=== PATIENT | female | born 2000 | race American Indian/Alaskan Native ===

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

== ENCOUNTER 2018-04-02 07:47 | Outpatient (CLI) | payer MEDICAID | END 2018-04-02 08:15 | disposition home or self-care (01) | LOC: TRG 07:47 | PROVIDERS: ATTEND Obstetrics & Gynecology | DX: O47.03 False labor before 37 completed weeks of gestation, third trimester (principal); Z3A.35 35 weeks gestation of pregnancy; Z90.89 Acquired absence of other organs | CPT/HCPCS: 84156 ==

== ENCOUNTER 2019-01-14 20:15 | Outpatient (CLI) | payer MEDICAID ==
[2019-01-14] MEDS ORDERED: LACTATED RINGERS 500 ML IV ONE (22:01)
[2019-01-14 22:49] VITALS: BP 135/84
[2019-01-14 23:12] LABS: Bacteria,Urine 2+ /HPF (Negative); Bilirubin,Urine NEG (Negative); Blood,Urine NEG (Negative); Color,Urine Yellow (Yellow); Mucus,Urine 2+ /HPF
== END 2019-01-14 23:15 | disposition home or self-care (01) ==
LOC: TRG 20:15
PROVIDERS: ATTEND Obstetrics & Gynecology
DX: O26.892 Other specified pregnancy related conditions, second trimester (principal); Z3A.27 27 weeks gestation of pregnancy
CPT/HCPCS: 81001

== ENCOUNTER 2019-02-23 21:13 | Inpatient (IN) | payer MEDICAID ==
[2019-02-23] MEDS ORDERED: LACTATED RINGERS 1,000 ML ONE (22:57)
[2019-02-23] MEDS ORDERED: BETAMET ACET/BETAMET NA PH 6 MG/ML INJ 5 ML MDV IM ONE (22:57)
[2019-02-23] MEDS ORDERED: LACTATED RINGERS 1,000 ML IV ONE (22:58)
[2019-02-23] MEDS ORDERED: BICITRA ORAL LIQD 30ML PO ONE (23:23)
[2019-02-23] MEDS ORDERED: METOCLOPRAMIDE 10 MG/2 ML INJ IV ONE (23:23)
[2019-02-23] MEDS ORDERED: FAMOTIDINE 20 MG/2 ML INJ IV ONE (23:23)
[2019-02-23] MEDS ORDERED: OXYTOCIN 20 UNIT/1000ML DRIP 20 UNITS/1,000 ML BAG IV SCH (23:45)
[2019-02-23] MEDS ORDERED: LACTATED RINGERS 1,000 ML IV SCH (23:45)
--- NOTE | 2019-02-24 00:08 | XRay Report ---
CHEST 1 VIEW, 02/23/2019 11:37 PM CLINICAL INFORMATION/INDICATION: Shortness of breath COMPARISON: None FINDINGS: SUPPORT DEVICES: None. HEART: Cardiac silhouette is normal in size. LUNGS/PLEURA: There is no focal airspace disease or significant pleural effusion. ADDITIONAL FINDINGS: No additional acute findings. The patient was shielded for this evaluation. IMPRESSION: 1. No evidence of acute cardiopulmonary process. Signer Name: Oksana Graham MD Signed: 02/24/2019 12:03 AM Workstation Name: [id number]
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
[2019-02-24 00:12] LABS: Hematocrit 33.5 % (30.3-42.9); Hemoglobin 11.3 gm/dl (10.1-14.3); Mean Corpuscular HGB Conc 34 % (30-34); Mean Corpuscular Volume 95 fl (79-97); Platelet Count 296 K/mm3 (140-440); Red Blood Count 3.54 M/mm3 (3.65-5.03); Red Cell Distribution Width 15.3 % (13.2-15.2)
[2019-02-24 00:20] LABS: Bacteria,Urine 1+ /HPF (Negative); Bilirubin,Urine NEG (Negative); Blood,Urine SM (Negative); Color,Urine Amber (Yellow); Mucus,Urine FEW /HPF
[2019-02-24] MEDS ORDERED: CARBOPROST TROMETHAMINE 250 MCG/1 ML INJ IM ONE (00:20)
[2019-02-24 00:22] LABS: Protein,Urine >500 mg/dL (Negative)
--- NOTE | 2019-02-24 00:28 | Anesthesia Consultation ---
Anesthesia Consult and Med Hx Date of service: 02/24/19 - Airway Anesthetic Teeth Evaluation: Poor ROM Head & Neck: Adequate Mental/Hyoid Distance: Inadequate Mallampati Class: Class II Intubation Access Assessment: Possibly Difficult - Pulmonary Exam CTA: Yes - Cardiac Exam Cardiac Exam: RRR - Pre-Operative Health Status ASA Pre-Surgery Classification: ASA3, Emergency Proposed Anesthetic Plan: Spinal - Pulmonary Hx Smoking: No Hx Asthma: No COPD: No Hx Pneumonia: No Hx Sleep Apnea: No (ANJALI PRE SCREEN NEGATIVE) - Cardiovascular System Hx Hypertension: No - Central Nervous System Hx Seizures: No Hx Psychiatric Problems: No - Endocrine Hx Renal Disease: No Hx End Stage Renal Disease: No Hx Hypothyroidism: No Hx Hyperthyroidism: No - Hematic Hx Anemia: No Hx Sickle Cell Disease: No - Other Systems Hx Alcohol Use: Yes Hx Cancer: No Hx Obesity: Yes (BMI > 30)
--- NOTE | 2019-02-24 00:29 | Anesthesia Day of Surgery ---
Anesthesia Day of Surgery - Day of Surgery Patient Examined: Yes Patient H&P Reviewed: Yes Patient is NPO: Yes
--- NOTE | 2019-02-24 00:31 | Ultrasound Report ---
Examination: Ultrasound Obstetrical Limited, 02/23/2019 INDICATION: Evaluate presentation and PIYUSH COMPARISON: None FINDINGS: The presentation is cephalic. PIYUSH equals 6 cm, which is decreased. The placenta is anterior and grade 2. heart rate equals 166 bpm IMPRESSION: 1. Decreased PIYUSH equaling 6 cm. Signer Name: Oksana Graham MD Signed: 02/24/2019 12:27 AM Workstation Name: [id number]
[2019-02-24 00:40] LABS: Albumin 3.3 g/dL (3.9-5); BUN/Creatinine Ratio 10; Blood Urea Nitrogen 8 mg/dL (7-17); Calcium 8.4 mg/dL (8.4-10.2); Hemolysis Index 999
[2019-02-24 00:45] LABS: Alanine Aminotransferase TNR units/L (7-56)
[2019-02-24] MEDS ORDERED: ALBUMIN HUMAN 5% (25 GM/500 ML) INJ IV STA (00:54)
[2019-02-24] MEDS ORDERED: ACETAMINOPHEN 500 MG TAB PO ONE (01:07)
[2019-02-24] MEDS ORDERED: ACETAMINOPHEN 650 MG RECT SUPP PR PRN (01:31)
[2019-02-24 01:48] LABS: Alanine Aminotransferase 7 units/L (7-56); Albumin 3.1 g/dL (3.9-5); BUN/Creatinine Ratio 12; Blood Urea Nitrogen 7 mg/dL (7-17); Calcium 8.2 mg/dL (8.4-10.2); Hemolysis Index 3
[2019-02-24] MEDS ORDERED: DEXMEDETOMIDINE 200 MCG/2 ML VIAL IV ONE (01:53)
[2019-02-24] MEDS ORDERED: BUPIVACAINE/PF (0.5%) 5 MG/1 ML 30 ML VIAL INFILTRATI ONE (01:53)
[2019-02-24] MEDS ORDERED: OXYTOCIN 10 UNIT/1 ML INJ ONE (01:54)
[2019-02-24] MEDS: GENTAMICIN/NS 80 MG/100 ML 100 ML IV SCH ×2 (02:00→12:50)
[2019-02-24 02:11] LABS: Band Neutrophils # (Manual) 2.9 K/mm3; Basophils % (Manual) 0 % (0.0-1.8); Eosinophils % (Manual) 0 % (0.0-4.3); Total Cells Counted 100
[2019-02-24] MEDS ORDERED: WATER FOR IRRIG STERILE 1,500 ML BOTTLE IR ONE (02:17)
[2019-02-24] MEDS ORDERED: SODIUM CHLORIDE 0.9% IRR 1,500 ML BOTTLE IR ONE (02:17)
[2019-02-24] MEDS ORDERED: CLINDAMYCIN 150 MG/ML VIAL 6 ML ONE (02:22)
[2019-02-24 02:25] LABS: Burr Cells Rare; Stomatocytes Rare
[2019-02-24 02:26] LABS: Platelet Estimate Consistent w Auto
[2019-02-24] MEDS ORDERED: KETOROLAC 30 MG/1 ML INJ ONE (02:49)
--- NOTE | 2019-02-24 03:17 | Post Anesthesia Evaluation ---
- Post Anesthesia Evaluation Patient Participated: Yes Airway Patent: Yes Stable Respiratory Function: Yes Nausea/Vomiting: No Temp > 96.8F: Yes Pain Manageable: Yes Adequeate Hydration: Yes Anesthesia Complications: No Block Receding Appropriately: Yes
--- NOTE | 2019-02-24 03:22 | Operative Report ---
Operative Report Operative Report: Date of procedure: February 24, 2019 Preoperative diagnosis: 1) IUP at 33w2d 2)Chorioamnionitis 3) PPROM 4) P rolonged ROM Postoperative diagnosis: Same Procedure:Primary low transverse section Surgeon: Carla Johnson M.D. Anesthesia: Regional Findings: 1) Viable female , Apgars 3 and 8, weight 1847g, (4 lb 1 oz) in cephalic presentation 2) Normal-appearing uterus ovaries and tubes Estimated blood loss: 500 mL IV fluids:1500 mL Urine output: 50 mL, clear at the end of the procedure Drains: Goodman to gravity Specimens: Placenta to pathology Complications:None. Counts correct x 3 Disposition: Stable to PACU Indication for procedure: Pt is a 18 year old at 33w2d who presents with PPROM, Prolonged ROM for unknown duration, fever, maternal tachycardia, tachycardia, uterine tenderness and foul smelling amniotic fluid consistent with chorioamnionitis. The decision was to proceed with delivery. Operation in detail: After the risks, benefits, alternatives and complications were explained to the patient she gave informed consent for the procedure. She was subsequently taken to the operating room where regional anesthesia was noted to be adequate. She was subsequently placed in the dorsal supine position with leftward tilt and prepped and draped in a normal sterile fashion. heart tones were noted prior to incision. A timeout was performed. A Pfannenstiel skin incision was made with the knife and carried down to the layer of the fascia with the Bovie. The fascia was incised in the midline and the fascial incision was extended bilaterally with the Bovie. The fascial incision was then stretched. The rectus muscles were then in the midline and partially transected for adequate visualization. The peritoneum was then entered sharply. The peritoneal incision was extended with good visualization of the bladder. The peritoneal incision was then stretched. An Bright retractor was placed. The bladder blade was placed. The vesicouterine peritoneum was grasped with smooth pickups and incised with Metzenbaum scissors. Metzenbaum scissors were used to extend the incision bilaterally. The bladder flap was then created digitally and the bladder blade was replaced. A transverse incision was made in the lower uterine segment with a knife and extended bilaterally with the bandage scissors. The head was delivered without difficulty followed by shoulders and body. was bulb suctioned at delivery. The cord was clamped and cut and the was handed to NICU staff in attendance. Cord blood was collected. The placenta was then delivered manually. The uterus was then cleared of all clots and debris. The hysterotomy was then reapproximated with 0 Vicryl in a running locked fashion. A second layer of the same suture was used in imbricating fashion. The hysterotomy was inspected and hemostasis was noted. The gutters were irrigated and cleared of all clots and debris. The hysterotomy was again inspected and noted to be hemostatic. Surgicel was placed over the hysterotomy. The Bright retractor was removed. The peritoneum was reapproximated with 2-0 Vicryl in a running fashion incorporating the rectus muscles. The fascia was reapproximated with 0 Vicryl in a running fashion. The subcutaneous tissue was reapproximated with 3-0 Vicryl in a running fashion. The skin was reapproximated with 4-0 Vicryl in a subcuticular fashion. The incision was then covered with steri strips and a pressure dressing. The procedure was then ended. The patient tolerated the procedure well and was taken to the PACU in stable condition. All instrument, lap, and needle counts were correct 3.
--- NOTE | 2019-02-24 03:22 | Procedure Note ---
OB Delivery Note - Delivery Date of Delivery: 02/24/19 Surgeon: ABDIAS EUCEDA Estimated blood loss: 500cc - Section Preop diagnosis: other (Chorioamnionitis, tachycardia, Maternal Tachycardia ) Postop diagnosis: same section procedure: section, primary low transverse Disposition: PACU Narrative: Please see operative report. - Infant A at 1 minute: 3 at 5 minutes: 8 Gender: Female (1847g (4lb 1oz) @ 0226 am)
[2019-02-24] MEDS: AMPICILLIN/NS 2 GM/100 ML 2 GM/100 ML BAG IV SCH ×5 (06:03→20:13)
[2019-02-24] MEDS ORDERED: NALOXONE 0.4 MG/1 ML INJ IV PRN (08:28)
[2019-02-24] MEDS ORDERED: WITCH HAZEL/ GLYCERIN PAD TP PRN (08:28)
[2019-02-24] MEDS ORDERED: ONDANSETRON 4 MG/2 ML INJ IV PRN (08:28)
[2019-02-24] MEDS ORDERED: SIMETHICONE 80 MG CHEW TAB PO PRN (08:28)
[2019-02-24] MEDS ORDERED: IBUPROFEN 800 MG TAB PO PRN (08:28)
[2019-02-24] MEDS ORDERED: LANOLIN/ZINC/DIMETHICONE (LANSINOH) 7 GM TP PRN (08:28)
[2019-02-24] MEDS ORDERED: OXYTOCIN 20 UNIT/1000ML DRIP 20 UNITS/1,000 ML BAG IV SCH (09:00)
[2019-02-24] MEDS ORDERED: D5W/LACTATED RINGERS 1,000 ML IV SCH (09:00)
[2019-02-24] MEDS: KETOROLAC 30 MG/1 ML INJ IV SCH ×2 (10:49→18:07)
[2019-02-24] MEDS: MORPHINE 2 MG/1 ML INJ IV PRN ×2 (12:56→20:27)
[2019-02-24] MEDS ORDERED: LACTATED RINGERS 1,000 ML IV ONE (15:55)
[2019-02-24 17:39] LABS: Basophils % (Auto) 0.3 % (0.0-1.8); Hematocrit 24.3 % (30.3-42.9); Hemoglobin 8.4 gm/dl (10.1-14.3); Lymphocytes % (Auto) 9.3 % (13.4-35.0); Mean Corpuscular HGB Conc 35 % (30-34); Mean Corpuscular Volume 94 fl (79-97); Monocytes # (Auto) 0.4 K/mm3 (0.0-0.8); Monocytes % (Auto) 3.4 % (0.0-7.3); Platelet Count 225 K/mm3 (140-440); Red Blood Count 2.59 M/mm3 (3.65-5.03); Red Cell Distribution Width 13.3 % (13.2-15.2)
[2019-02-24 17:52] LABS: BUN/Creatinine Ratio 15; Blood Urea Nitrogen 9 mg/dL (7-17); Calcium 8.7 mg/dL (8.4-10.2); Hemolysis Index 0
[2019-02-24 21:34] LABS: Hematocrit 23.6 % (30.3-42.9); Hemoglobin 8.2 gm/dl (10.1-14.3)
[2019-02-25] MEDS: GENTAMICIN/NS 80 MG/100 ML 100 ML IV SCH ×2 (02:00→09:05)
--- NOTE | 2019-02-25 02:56 | Consultation ---
History of Present Illness - Reason for Consult Consult date: 02/25/19 - History of Present Illness 18-year-old woman with no medical problem, status post on [id number] is being consulted for hypothermia. Patient has been hypothermic and hypotensive since yesterday, she is on ampicillin, gentamicin, clindamycin. Next report decreased urine output since yesterday. Patient complain of back pain, dull, constant since yesterday, intensity follow 10, no radiation, cannot identify exacerbating factors Review of systems Constitutional: no weight loss, chills, fever Ears, eyes, nose, mouth and throat: no nasal congestion, no nasal discharge, no sinus pressure, no vision change, no red eye. Neck: No neck pain or rigidity. Cardiovascular: no chest pain, palpitations Respiratory: no cough, shortness of breath Gastrointestinal: no abdominal pain hematochezia Genitourinary : no frequency , no hematuria Musculoskeletal: no joint swelling or muscle ache Integumentary: no rash, no pruritis Neurological: no parathesias, no numbness, no focal weakness Endocrine: no cold or heat intolerance, no polyuria or polydipsia Hematologic/Lymphatic: no easy bruising, no easy bleeding, no gland swelling Allergic/Immunologic: no urticaria, no angioedema. PAST MEDICAL HISTORY none PAST SURGICAL HISTORY: c/section SOCIAL HISTORY: No drugs, tobacco, alcohol FAMILY HISTORY: Hypertension Past History Social history: other (per HPII ) Medications and Allergies Allergies Allergy/AdvReac Type Severity Reaction Status Date / Time No Known Allergies Allergy Verified 02/02/17 11:01 Home Medications Medication Instructions Recorded Confirmed Last Taken Type Vit-Fe Fumar-FA [ 1 tab PO QDAY 04/27/18 02/24/19 04/25/18 History Vitamin] Ibuprofen [Motrin] 800 mg PO Q8HR PRN #40 tablet 04/29/18 Unknown Rx Active Meds: Active Medications Diphtheria/Tetanus/Acell Pertussis (Boostrix) 0.5 ml IM .ONCE ONE Stop: 02/25/19 08:18 Ferrous Sulfate (Feosol) 325 mg PO QDAY [facility] Gentamicin Sulfate/Sodium Chloride (Gentamicin/Ns 80 Mg/100 Ml) 100 mls @ 200 mls/hr IV Q8H [facility]; Protocol Last Admin: 02/25/19 02:00 Dose: 200 mls/hr Documented by: Clindamycin HCl (Cleocin 900 Mg/50 Ml) 900 mg in 50 mls @ 100 mls/hr IV Q8HR [facility]; Protocol Last Admin: 02/24/19 20:33 Dose: 100 mls/hr Documented by: Ampicillin Sodium (Ampicillin/Ns 2 Gm/100 Ml) 2 gm in 100 mls @ 100 mls/hr IV Q4HR [facility]; Protocol Last Admin: 02/24/19 20:13 Dose: 100 mls/hr Documented by: Oxytocin/Sodium Chloride (Pitocin/Ns 20 Unit/1000ml Drip) 20 units in 1,000 mls @ 0 mls/hr IV TITR [facility] Oxytocin/Sodium Chloride (Pitocin/Ns 20 Unit/1000ml Drip) 20 units in 1,000 mls @ 250 mls/hr IV DIRECT [facility] Dextrose/Lactated Ringer's (D5lr) 1,000 mls @ 125 mls/hr IV DIRECT [facility] Piperacillin Sod/Tazobactam Sod (Zosyn/Ns 4.5gm/100ml) 4.5 gm in 100 mls @ 200 mls/hr IV Q8HR [facility]; Protocol Ibuprofen (Ibuprofen) 800 mg PO Q6H PRN PRN Reason: Pain, Mild (1-3) Ketorolac Tromethamine (Toradol) 30 mg IV Q6H [facility] Stop: 02/25/19 03:01 Last Admin: 02/24/19 18:07 Dose: 30 mg Documented by: Measles/Mumps/Rubella Vaccine Live (M-M-R Ii Vaccine) 0.5 ml SUB-Q .ONCE ONE Stop: 02/25/19 08:18 Morphine Sulfate (Morphine) 2 mg IV Q4H PRN PRN Reason: Pain, Moderate (4-6) Last Admin: 02/24/19 20:27 Dose: 2 mg Documented by: Multi-Ingredient Ointment (Lansinoh) 1 applic TP PRN PRN PRN Reason: dryness/cracking Multivitamins/Iron/Calcium ( Vitamin) 1 each PO QDAY [facility] Naloxone HCl (Naloxone) 0.1 mg IV Q2MIN PRN PRN Reason: Res Rate </= 8 or 02 SAT < 92% Ondansetron HCl (Zofran) 4 mg IV Q8H PRN PRN Reason: Nausea And Vomiting Oxycodone/Acetaminophen (Percocet 5/325) 2 tab PO Q4H PRN PRN Reason: Pain, Moderate (4-6) Simethicone (Mylicon) 80 mg PO Q6H PRN PRN Reason: Gas pain Witch Veena/Glycerin (Tucks Pad) 1 each TP PRN PRN PRN Reason: Hemorrhoids/cleansing/soothing Exam - Physical Exam Narrative exam: Gen. appearance: Patient lying in bed, no apparent distress HEENT: Normocephalic, atraumatic, pupils equally round and reactive to light, extraocular movement intact, and no sclericterus,. No JVD or thyromegaly or nodule,neck supple, no carotid bruit ,mucous membranes moist, no exudate or erythema Heart: S1, S2, regular rate and rhythm Lungs: Clear bilaterally, breathing comfortable Abdomen: Positive bowel sounds, tender over c/section site, nondistended, no organomegaly Extremity:no edema cyanosis, clubbing, no CVA tenderness Skin: no rash, dry, warm Neuro: Oriented 3, cranial nerves II-12 intact, speech is fluent, motor and sensory intact - Constitutional Vitals: Temp Pulse Resp BP Pulse Ox 95.9 F L 87 17 104/70 98 02/25/19 02:33 02/24/19 21:40 02/24/19 20:27 02/24/19 21:40 02/24/19 20:01 Results - Labs CBC & Chem 7: 02/25/19 05:04 02/25/19 05:04 Labs: Abnormal lab results 02/24/19 02/24/19 02/24/19 Range/Units 17:07 17:07 20:19 RBC 2.59 L (3.65-5.03) M/mm3 Hgb 8.4 L 8.2 L (10.1-14.3) gm/dl Hct 24.3 L D 23.6 L (30.3-42.9) % MCH 33 H (28-32) pg MCHC 35 H (30-34) % Lymph % (Auto) 9.3 L (13.4-35.0) % Lymph # 1.0 L (1.2-5.4) K/mm3 Seg Neutrophils % 87.0 H (40.0-70.0) % Seg Neutrophils # 9.5 H (1.8-7.7) K/mm3 Chloride 108.5 H (98-107) mmol/L Carbon Dioxide 16 L (22-30) mmol/L Creatinine 0.6 L (0.7-1.2) mg/dL Glucose 114 H (65-100) mg/dL Assessment and Plan Assessment Septic Shock Back pain Urinary tract present on 02/23 Plan Give IV fluid bolus then maintenance CT abdomen, rule out retroperitoneal bleed, hemoglobin trending down versus other Start Zosyn, obtain cultures, labs now, continue bear kathy Recommend ID consult, patient on multiple antibiotics Discussed with Dr Johnson
[2019-02-25] MEDS ORDERED: SODIUM CHLORIDE 0.9% 1000 ML 1,000 ML IV ONE (02:57)
[2019-02-25] MEDS: KETOROLAC 30 MG/1 ML INJ IV SCH ×3 (03:00→06:10)
[2019-02-25] MEDS: PIPERACIL/TAZOBACTA 4.5/NS 100 4.5 GM/100 ML VIAL IV SCH ×3 (03:00→21:27)
[2019-02-25] MEDS ORDERED: SODIUM CHLORIDE 0.9% 1000 ML 3,000 ML IV ONE (03:05)
--- NOTE | 2019-02-25 03:50 | Event Note ---
Date: 02/25/19 Late entry. Pt has been intermittently hypothermic since surgery. Urine output initially increased but has now decreased and become more concentrated. Blood pressure 70-100/30-70s. Pulse consistently below 100. Pt is awake, alert and oriented. Abdomen appropriately tender. Hypoactive bowel sounds. Fundus firm. Scant lochia. Extremities lukewarm to touch. Goodman in place, urine yellow but concentrated. Nursing calender supervisor contacted for transfer to ICU for close monitoring. Hospitalist consulted previously.
[2019-02-25] MEDS: AMPICILLIN/NS 2 GM/100 ML 2 GM/100 ML BAG IV SCH ×4 (04:01→09:36)
--- NOTE | 2019-02-25 04:10 | Cat Scan Report ---
CT ABDOMEN AND PELVIS WITHOUT CONTRAST INDICATION: Abdominal pain and back pain after recent . TECHNICAL: Multiple axial CT images of the abdomen and pelvis were acquired without intravenous contr ast. Sagittal and coronal reformats were obtained. All CTs at this facility utilize dose reduction techniques including automated exposure control, iterative reconstruction and weight based dosing whe n appropriate to reduce patient radiation dose to as low as reasonable achievable. COMPARISON: CT of the abdomen and pelvis, 01/04/2017 FINDINGS: Limited imaging of the bilateral lung bases demonstrates minimal dependent atelectasis. Abdomen: There is a small amount of free air within the anterior abdomen. Within the limitations of jacklyn herbert's noncontrast study, the liver, spleen, gallbladder, pancreas, bilateral adrenal glands and bila teral kidneys show no definitive evidence of acute abnormality. There are a few loops of mildly promi nent fluid-filled small bowel throughout the abdomen. Pelvis: The uterus is enlarged and diffusely heterogeneous. Scattered air is seen within the endometr ial canal and within the overlying anterior pelvic soft tissues. There is a moderate amount of mixed density free pelvic fluid. The urinary bladder is decompressed by a Goodman catheter. Bones and Soft Tissues: Evaluation of bony structures demonstrate no evidence of acute bony abnormal ity. IMPRESSION: 1. Enlarged heterogeneous uterus likely related to immediate state after section with scattered abdominopelvic free air. 2. Moderate amount of mixed density free pelvic fluid. 3. Few mildly prominent small bowel loops representing a nonspecific finding. Signer Name: Oksana Graham MD Signed: 02/25/2019 4:06 AM Workstation Name: [id number]
[2019-02-25] MEDS ORDERED: SODIUM CHLORIDE 0.9% 1000 ML 1,000 ML ONE (04:16)
[2019-02-25 05:15] LABS: Basophils % (Auto) 0.1 % (0.0-1.8); Eosinophils % (Auto) 0.1 % (0.0-4.3); Hemoglobin 7.2 gm/dl (10.1-14.3); Lymphocytes # (Auto) 0.7 K/mm3 (1.2-5.4); Lymphocytes % (Auto) 5.7 % (13.4-35.0); Mean Corpuscular HGB Conc 34 % (30-34); Mean Corpuscular Volume 94 fl (79-97); Monocytes # (Auto) 0.8 K/mm3 (0.0-0.8); Monocytes % (Auto) 5.9 % (0.0-7.3); Platelet Count 222 K/mm3 (140-440); Red Blood Count 2.23 M/mm3 (3.65-5.03); Red Cell Distribution Width 13.7 % (13.2-15.2)
[2019-02-25 05:27] LABS: INR 0.92 (0.87-1.13)
[2019-02-25 05:36] LABS: BUN/Creatinine Ratio 17; Blood Urea Nitrogen 10 mg/dL (7-17); Calcium 8.2 mg/dL (8.4-10.2); Hemolysis Index 2
[2019-02-25] MEDS: SODIUM CHLORIDE 0.9% 1000 ML 1,000 ML IV SCH ×2 (06:09→18:31)
[2019-02-25] MEDS ORDERED: MEASLES, MUMPS & RUBELLA 12,500 UNIT/0.5 ML VACCINE SUB-Q ONE (08:17)
[2019-02-25] MEDS ORDERED: TETANUS,DIPH,PERTUSS(ACELL) VACCINE 0.5 ML SYRINGE IM ONE (08:17)
[2019-02-25] MEDS: FERROUS SULFATE 325 MG TAB PO SCH (09:36)
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
--- NOTE | 2019-02-25 12:29 | XRay Report ---
CHEST 2 VIEWS INDICATION / CLINICAL INFORMATION: eval for pneumonia. COMPARISON: One view of the chest from 02/23/2019. FINDINGS: SUPPORT DEVICES: None. HEART / MEDIASTINUM: There is mild cardiomegaly. LUNGS / PLEURA: No significant pulmonary or pleural abnormality. No pneumothorax. ADDITIONAL FINDINGS: No significant additional findings. IMPRESSION: 1. Mild cardiomegaly. 2. No radiographic evidence of pneumonia. Signer Name: Monster Duron MD Signed: 02/25/2019 12:24 PM Workstation Name: [id number]
[2019-02-25] MEDS: oxyCODONE /ACETAMINOPHEN 5-325MG TAB PO PRN ×2 (14:09→23:30)
[2019-02-25] MEDS: AZITHROMYCIN 500 MG in SODIUM CHLORIDE 0.9% 250ML 250 ML IV SCH (14:17)
--- NOTE | 2019-02-25 14:29 | Event Note ---
Date: 02/25/19 patient seen and examined noted ID recommendation, follow cx, cont abx if BP anf body temp improves possible transfer to floor tomorrow Discussed with family at bedside
[2019-02-25] MEDS: PRENATAL VIT27-FE FUMARATE-FOLIC ACID VIT TAB PO SCH (20:27)
--- NOTE | 2019-02-25 22:53 | Event Note ---
Date: 02/25/19 Late entry. ~ 1730 pm, pt resting in bed with mother at bedside. On-call RN at bedside as well. Discussed reason for transfer to ICU secondary to persistent hypothermia and sepsis. Pt doing well throughout the day with increased urine output to 50 mL/hr and bowel movement earlier today. Pt c/o incisional pain relieved by pain medication. Maintain glover at this time. All input from automotive consultant services much appreciated. Continue antibiotics per Infectious Disease recommendations.
[2019-02-26] MEDS: SODIUM CHLORIDE 0.9% 1000 ML 1,000 ML IV SCH ×2 (01:18→11:45)
[2019-02-26] MEDS: PIPERACIL/TAZOBACTA 4.5/NS 100 4.5 GM/100 ML VIAL IV SCH ×3 (04:04→20:50)
[2019-02-26] MEDS ORDERED: ACETAMINOPHEN 325 MG TAB PO PRN (05:05)
--- NOTE | 2019-02-26 05:44 | Event Note ---
I went to evaluate the patient for tachycardia, febrile, resting comfortable in bed Nurse Instructed to give Tylenol, will reassess heart rate after tylenol Lab draw is pending, follow hemoglobin and BMP, d/w Dr Johnson
--- NOTE | 2019-02-26 06:23 | Event Note ---
Date: 02/26/19 On-call MD called to reevaluate the patient secondary to fever, and worsening tachycardia over the course of the shift. At bedside, pt is resting in bed. She reports that she has not used her incentive spirometer since transfer to ICU. Again encouraged frequent use. Pulse 130-150s, 99% oxygen saturation on 3L NC, tachycardic, shallow breaths. Upper abdomen moderately distended with hypoactive bowel sounds. Uterine fundus firm two fingerbreaths below the umbilicus. Scant lochia noted on pad. Goodman in place with concentrated yellow urine in the bag. Certified Genetic Counselor input much appreciated. Tylenol PRN; CBC, CMP ordered previously. Chest X-ray ordered. Respiratory consult. Closely monitor clinical status.
--- NOTE | 2019-02-26 06:33 | XRay Report ---
CHEST 1 VIEW, 02/26/2019 6:11 AM CLINICAL INFORMATION/INDICATION: Shortness of breath COMPARISON: Chest radiograph, 02/25/2019 FINDINGS: SUPPORT DEVICES: None. HEART: There is stable mild enlargement of the cardiac silhouette. LUNGS/PLEURA: No focal airspace consolidation or significant pleural effusion is seen. ADDITIONAL FINDINGS: No additional acute findings. IMPRESSION: 1. Stable mild enlargement of the cardiac silhouette. Signer Name: Oksana Graham MD Signed: 02/26/2019 6:29 AM Workstation Name: [id number]
[2019-02-26 08:04] LABS: Hemoglobin 6.9 gm/dl (10.1-14.3); Mean Corpuscular HGB Conc 35 % (30-34); Mean Corpuscular Volume 94 fl (79-97); Platelet Count 252 K/mm3 (140-440); Red Blood Count 2.11 M/mm3 (3.65-5.03); Red Cell Distribution Width 13.9 % (13.2-15.2)
[2019-02-26 08:11] LABS: Hematocrit 19.9 % (30.3-42.9)
[2019-02-26] MEDS: FERROUS SULFATE 325 MG TAB PO SCH ×2 (08:14→09:31)
[2019-02-26] MEDS: PRENATAL VIT27-FE FUMARATE-FOLIC ACID VIT TAB PO SCH ×2 (08:15→09:31)
[2019-02-26] MEDS: KETOROLAC 30 MG/1 ML INJ IV SCH (08:15)
[2019-02-26] MEDS: GENTAMICIN/NS 80 MG/100 ML 100 ML IV SCH ×2 (08:16→08:17)
[2019-02-26 08:26] LABS: Alanine Aminotransferase 6 units/L (7-56); Albumin 2.4 g/dL (3.9-5); BUN/Creatinine Ratio 13; Blood Urea Nitrogen 10 mg/dL (7-17); Calcium 8.1 mg/dL (8.4-10.2); Hemolysis Index 2
[2019-02-26] MEDS ORDERED: SODIUM CHLORIDE 0.9% 500 ML 500 ML IV ONE ×2 (08:27→08:52)
--- NOTE | 2019-02-26 08:33 | Progress Note ---
Assessment and Plan POD2 s/p emergency csec/chorio/sepsis switched abx to zosyn and azithro tolerating diet temp currently 98.4 on tylenol encourage IS and out of besd with assistance hemoglobin 6.9 2 u blood transfusion will discuss case with IM Dr. Boyd appreciate ID consult Subjective - Subjective Date of service: 02/26/19 Principal diagnosis: chroirom csec, sepsis Patient reports: appetite normal, voiding normally, ambulating normally : doing well, in NICU Objective - Vital Signs Latest vital signs: Vital Signs Temp Pulse Pulse Resp BP Pulse Ox 02/26/19 07:27 99 02/26/19 04:00 131 H 42 H 99/54 97 02/26/19 03:25 101.9 F H 02/26/19 03:00 118 H 35 H 107/45 96 02/26/19 02:00 118 H 26 H 100/42 93 02/26/19 01:00 125 H 27 H 91/45 94 02/26/19 00:00 102.4 F H 122 H 30 H 98/40 98 02/25/19 23:00 126 H 40 H 97/52 100 02/25/19 22:00 123 H 36 H 103/59 99 02/25/19 21:25 119 H 29 H 95/53 98 02/25/19 21:00 114 H 24 95/53 98 02/25/19 20:00 98.3 F 111 H 22 95/44 99 02/25/19 19:00 106 H 24 101/61 97 02/25/19 18:00 107 H 109 H 29 H 105/60 98 02/25/19 17:00 90 20 99/53 02/25/19 16:00 97.9 F 86 21 81/25 95 02/25/19 15:00 120 H 23 93/48 97 02/25/19 14:00 108 H 88 37 H 93/63 97 02/25/19 13:00 105 H 22 97/62 100 02/25/19 12:12 117/66 02/25/19 12:00 97.4 F L 88 02/25/19 11:00 97 H 24 95/69 99 02/25/19 10:00 94 H 79 26 H 99/58 99 02/25/19 09:00 73 16 102/62 97 Intake and Output 02/25/19 02/26/19 02/26/19 23:59 07:59 15:59 Intake Total 500 1250 Output Total 300 340 Balance 200 910 Intake: IV 100 1000 NaCl 0.9% 1000 ml 1,000 1000 ml @ 150 mls/hr IV DIRECT MANGO Rx#:[id number] ZOSYN/NS 4.5GM/100ML 4.5 100 gm In 100 ml @ 200 mls/hr IV Q8H MAN[facility] Rx#:[id number] Oral 400 250 Output: Urine 300 340 Indwelling Catheter 300 340 Other: Total, Intake Amount 200 150 Total, Output Amount 300 40 Voiding Method Indwelling Catheter # Bowel Movements 0 - Exam Breasts: Present: normal Cardiovascular: Present: Regular rate, Normal S1 Lungs: Present: Clear to auscultation, Normal air movement Abdomen: Present: normal appearance, soft, normal bowel sounds. Absent: distention, tenderness, guarding Uterus: Present: normal, firm, fundal height below umbilicus Extremities: Present: normal Deep Tendon Reflex Grade: Normal +2 Incision: Present: normal, dry, intact - Labs Labs: Abnormal lab results 02/26/19 02/26/19 Range/Units 07:40 07:40 RBC 2.11 L (3.65-5.03) M/mm3 Hgb 6.9 L (10.1-14.3) gm/dl Hct 19.9 L* (30.3-42.9) % MCH 33 H (28-32) pg MCHC 35 H (30-34) % Chloride 114.2 H (98-107) mmol/L Carbon Dioxide 13 L (22-30) mmol/L Calcium 8.1 L (8.4-10.2) mg/dL ALT 6 L (7-56) units/L Total Protein 5.2 L (6.3-8.2) g/dL Albumin 2.4 L (3.9-5) g/dL
[2019-02-26] MEDS ORDERED: SODIUM CHLORIDE 0.9% 500 ML 500 ML IV NR (09:06)
[2019-02-26 09:24] LABS: Band Neutrophils # (Manual) 0.1 K/mm3; Basophils % (Manual) 0 % (0.0-1.8); Eosinophils % (Manual) 0 % (0.0-4.3); Monocytes % (Manual) 0 % (0.0-7.3); Total Cells Counted 100
[2019-02-26 09:26] LABS: Anisocytosis Few; Ovalocytes Few
[2019-02-26 09:27] LABS: Large Platelets Rare; Platelet Estimate Consistent w Auto
[2019-02-26] MEDS: ACETAMINOPHEN 325 MG/10.15 ML ORAL LIQD UNIT DOSE PO SCH ×2 (09:30→20:56)
[2019-02-26] MEDS: AZITHROMYCIN 500 MG in SODIUM CHLORIDE 0.9% 250ML 250 ML IV SCH (09:31)
--- NOTE | 2019-02-26 12:01 | Progress Note ---
Assessment and Plan Cultures: Blood culture 02/23/2019 no growth so far Blood culture 02/25/2019 - pending Blood culture 02/26/2019 - pending Urine culture 02/23/2019 10-100K mixed bacteria. Assessment: 18 y/o female with 33 weeks admitted on 02/23/2019 due to abdominal pain and vaginal clear discharge, as well as cough now with: 1) Sepsis: present on admission with tachycardia, fever, leukococytosis; likely due to UTI +/- choriamnionitis +/- ?r/o pneumonia/flu 2) S/p C section: for and maternal tachycardia and presumed chorioamnionitis on 02/24/2019 3) UTI: UA with 23 wbc trace LE. Urine culture 02/23/2019 10-100K mixed bacteria. 4) Chorioamnionitis: premature ROM. CT abd shows enlarged heterogenous uterus with scattered free air. 5) Recent gonorrhea: treated Recs: continue pip/tazo IV Flu negative check GC/chlamydia - pending s/p blood transfusion Continue azithromycin follow up blood cultures Will follow. Thanks for consultation [facility] M: [phone] O: [phone] F: [phone] Subjective Date of service: 02/26/19 Principal diagnosis: chroirom csec, sepsis Interval history: Febrile overnight to 102.4, with a normal white count. Objective - Exam Narrative Exam: Constitutional: Alert, cooperative. No acute distress Head, Ears, Nose: Normocephalic, atraumatic. External ears, nose normal Eyes: Conjunctivae/corneas clear. No icterus. No ptosis. Neck: Supple, no meningeal signs Oral: dentition fair, no thrush Cardiovascular: S1, S2 normal. Respiratory: Good air entry, clear to auscultation bilaterally GI: soft +csection wound with dressings Musculoskeletal: No pedal edema, no cyanosis. b/l leg wounds Skin: no rash Hem/Lymphatic: No palpable cervical or supraclavicular nodes. No lymphangitis Psych: Mood ok. Affect flat Neurological: Awake, alert, oriented. - Constitutional Vitals: Vital Signs Temp Pulse Resp BP Pulse Ox 98.6 F 131 H 42 H 99/54 99 02/26/19 08:08 02/26/19 04:00 02/26/19 04:00 02/26/19 04:00 02/26/19 07:27 Temperature -Last 24 Hours Temperature 98.6 F Temperature 101.9 F Temperature 102.4 F Temperature 98.3 F Temperature 97.9 F Temperature 97.4 F - Labs CBC & Chem 7: 02/26/19 07:40 02/26/19 07:40 Labs: Abnormal lab results 02/23/19 02/24/19 02/26/19 Range/Units 23:05 01:00 07:40 WBC 13.8 H (4.5-11.0) K/mm3 RBC 3.54 L 2.11 L (3.65-5.03) M/mm3 Hgb 6.9 L (10.1-14.3) gm/dl Hct 19.9 L* (30.3-42.9) % MCH 33 H (28-32) pg MCHC 35 H (30-34) % RDW 15.3 H (13.2-15.2) % Seg Neuts % (Manual) 83.0 H (40.0-70.0) % Lymphocytes % (Manual) 11.0 L (13.4-35.0) % Monocytes % (Manual) 10.0 H (0.0-7.3) % Nucleated RBC % 1.0 H (0.0-0.9) % Seg Neutrophils # Man 7.9 H (1.8-7.7) K/mm3 Lymphocytes # (Manual) 1.1 L (1.2-5.4) K/mm3 Monocytes # (Manual) 1.4 H (0.0-0.8) K/mm3 Chloride (98-107) mmol/L Carbon Dioxide (22-30) mmol/L Calcium (8.4-10.2) mg/dL ALT (7-56) units/L Total Protein (6.3-8.2) g/dL Albumin (3.9-5) g/dL Crossmatch See Detail 02/26/19 Range/Units 07:40 WBC (4.5-11.0) K/mm3 RBC (3.65-5.03) M/mm3 Hgb (10.1-14.3) gm/dl Hct (30.3-42.9) % MCH (28-32) pg MCHC (30-34) % RDW (13.2-15.2) % Seg Neuts % (Manual) (40.0-70.0) % Lymphocytes % (Manual) (13.4-35.0) % Monocytes % (Manual) (0.0-7.3) % Nucleated RBC % (0.0-0.9) % Seg Neutrophils # Man (1.8-7.7) K/mm3 Lymphocytes # (Manual) (1.2-5.4) K/mm3 Monocytes # (Manual) (0.0-0.8) K/mm3 Chloride 114.2 H (98-107) mmol/L Carbon Dioxide 13 L (22-30) mmol/L Calcium 8.1 L (8.4-10.2) mg/dL ALT 6 L (7-56) units/L Total Protein 5.2 L (6.3-8.2) g/dL Albumin 2.4 L (3.9-5) g/dL Crossmatch
--- NOTE | 2019-02-26 15:04 | Progress Note ---
Assessment and Plan Septic Shock with Hypothermia Urinary tract present on 02/23 Anemia, likely acute on chronic - hb 6.9 today s/p C -section Plan cont IV fluid for maintenance transfuse 1 unit PRBC cont abx, follow cultures, now off bear jeanninegger ID consulted, patient on multiple antibiotics transfer to floor recommended Brief History: 18 y/o female with 33 weeks admitted on 02/23/2019 due to abdominal pain and vaginal clear discharge. On admission, her temperature of 101.2, HR 140, 112/67. WBC 13.8. Creat 0.8. AST 99. UA with 23 wbc trace LE. Blood culture 02/23/2019 no growth so far. Urine culture 02/23/2019 10-100K mixed bacteria. She underwent urgent C section for and maternal tachycardia, Premature ROM and presumed chorioamnionitis on 02/24/2019. Since then noted hypotension and hypothermia. CT abd shows enlarged heterogenous uterus with scattered free air. Subjective Date of service: 02/26/19 Principal diagnosis: chroirom csec, sepsis Interval history: Patient seen and examined Hb dropped today Patient feeling better, temp improved, vitals seems stable Objective - Constitutional Vitals: Vital Signs - 12hr 02/26/19 02/26/19 02/26/19 03:25 04:00 07:27 Temperature 101.9 F H Pulse Rate 131 H Respiratory 42 H Rate Blood Pressure 99/54 O2 Sat by Pulse 97 99 Oximetry 02/26/19 08:08 Temperature 98.6 F Pulse Rate Respiratory Rate Blood Pressure O2 Sat by Pulse Oximetry General appearance: Present: no acute distress, well-nourished - EENT Eyes: PERRL, EOM intact ENT: hearing intact, clear oral mucosa Ears: bilateral: normal - Neck Neck: supple, normal ROM - Respiratory Respiratory effort: normal Respiratory: bilateral: CTA - Cardiovascular Rhythm: regular Heart Sounds: Present: S1 & S2. Absent: gallop, rub Extremities: pulses intact, No edema, normal color, Full ROM - Gastrointestinal General gastrointestinal: Present: soft, non-distended, normal bowel sounds, other ( scar on place) - Integumentary Integumentary: clear, warm, dry - Musculoskeletal Musculoskeletal: 1, strength equal bilaterally - Neurologic Neurologic: moves all extremities - Psychiatric Psychiatric: memory intact, appropriate mood/affect, intact judgment & insight - Labs CBC & Chem 7: 02/26/19 23:02 02/26/19 07:40 Labs: Abnormal lab results 02/23/19 02/24/19 02/26/19 Range/Units 23:05 01:00 07:40 WBC 13.8 H (4.5-11.0) K/mm3 RBC 3.54 L 2.11 L (3.65-5.03) M/mm3 Hgb 6.9 L (10.1-14.3) gm/dl Hct 19.9 L* (30.3-42.9) % MCH 33 H (28-32) pg MCHC 35 H (30-34) % RDW 15.3 H (13.2-15.2) % Seg Neuts % (Manual) 83.0 H (40.0-70.0) % Lymphocytes % (Manual) 11.0 L (13.4-35.0) % Monocytes % (Manual) 10.0 H (0.0-7.3) % Nucleated RBC % 1.0 H (0.0-0.9) % Seg Neutrophils # Man 7.9 H (1.8-7.7) K/mm3 Lymphocytes # (Manual) 1.1 L (1.2-5.4) K/mm3 Monocytes # (Manual) 1.4 H (0.0-0.8) K/mm3 Chloride (98-107) mmol/L Carbon Dioxide (22-30) mmol/L Calcium (8.4-10.2) mg/dL ALT (7-56) units/L Total Protein (6.3-8.2) g/dL Albumin (3.9-5) g/dL Crossmatch See Detail 02/26/19 Range/Units 07:40 WBC (4.5-11.0) K/mm3 RBC (3.65-5.03) M/mm3 Hgb (10.1-14.3) gm/dl Hct (30.3-42.9) % MCH (28-32) pg MCHC (30-34) % RDW (13.2-15.2) % Seg Neuts % (Manual) (40.0-70.0) % Lymphocytes % (Manual) (13.4-35.0) % Monocytes % (Manual) (0.0-7.3) % Nucleated RBC % (0.0-0.9) % Seg Neutrophils # Man (1.8-7.7) K/mm3 Lymphocytes # (Manual) (1.2-5.4) K/mm3 Monocytes # (Manual) (0.0-0.8) K/mm3 Chloride 114.2 H (98-107) mmol/L Carbon Dioxide 13 L (22-30) mmol/L Calcium 8.1 L (8.4-10.2) mg/dL ALT 6 L (7-56) units/L Total Protein 5.2 L (6.3-8.2) g/dL Albumin 2.4 L (3.9-5) g/dL Crossmatch - Imaging and cardiology CT scan - abdomen: report reviewed
[2019-02-26] MEDS ORDERED: diphenhydrAMINE 50 MG/ML VIAL IV ONE (15:54)
[2019-02-26 23:31] LABS: Hematocrit 27.1 % (30.3-42.9); Hemoglobin 9.5 gm/dl (10.1-14.3)
--- NOTE | 2019-02-27 00:02 | Consultation ---
History of Present Illness Consult date: 02/26/19 Requesting physician: ABDIAS EUCEDA Reason for consult: dyspnea, other (sepsis) History of present illness: 18 yo s/p . Developed fever/tachycardia/tachypnea and leukocytosis afterwards. Transferred to [facility] for closer monitoring. Has received IVFs and ABX with improvement. C/o SOB but is on RA. No chest pain, cough, sputum. Has abdominal pain due to . No other current complaints. Active Medications Acetaminophen (Tylenol) 650 mg PO Q4H MANGO Last Admin: 02/27/19 09:53 Dose: 650 mg Documented by: Acetaminophen (Tylenol) 650 mg PO Q4H PRN PRN Reason: Pain MILD(1-3)/Fever >100.5/DUVALL Acetaminophen/Hydrocodone Bitart ([place] 5/325) 2 each PO Q6H PRN PRN Reason: Pain, Moderate (4-6) Bisacodyl (Dulcolax) [address] BID PRN PRN Reason: Constipation Diphenhydramine HCl (Benadryl) 25 mg PO Q6H PRN PRN Reason: Itching Docusate Sodium (Colace) 100 mg PO BID MANGO Ferrous Sulfate (Feosol) 325 mg PO QDAY [facility] Last Admin: 02/27/19 09:54 Dose: 325 mg Documented by: Piperacillin Sod/Tazobactam Sod (Zosyn/Ns 4.5gm/100ml) 4.5 gm in 100 mls @ 200 mls/hr IV Q8H [facility]; Protocol Last Admin: 02/27/19 11:36 Dose: 200 mls/hr Documented by: Azithromycin 500 mg/ Sodium (Chloride) 250 mls @ 250 mls/hr IV Q24HR [facility]; Protocol Last Admin: 02/27/19 09:54 Dose: 250 mls/hr Documented by: Ibuprofen (Ibuprofen) 800 mg PO Q6H PRN PRN Reason: Pain, Mild (1-3) Last Admin: 02/26/19 05:22 Dose: 800 mg Documented by: Ibuprofen (Ibuprofen) 600 mg PO Q6H [facility] Magnesium Hydroxide (Milk Of Magnesia) 30 ml PO HS PRN PRN Reason: Constipation Measles/Mumps/Rubella Vaccine Live (M-M-R Ii Vaccine) 0.5 ml SUB-Q .ONCE ONE Stop: 02/28/19 13:55 Morphine Sulfate (Morphine) 2 mg IV Q4H PRN PRN Reason: Pain, Moderate (4-6) Last Admin: 02/24/19 20:27 Dose: 2 mg Documented by: Multi-Ingredient Ointment (Lansinoh) 1 applic TP PRN PRN PRN Reason: dryness/cracking Multi-Ingredient Ointment (Lansinoh) 1 applic TP PRN PRN PRN Reason: Sore Nipples Multivitamins/Iron/Calcium ( Vitamin) 1 each PO QDAY [facility] Last Admin: 02/27/19 09:54 Dose: 1 each Documented by: Naloxone HCl (Naloxone) 0.1 mg IV Q2MIN PRN PRN Reason: Res Rate </= 8 or 02 SAT < 92% Ondansetron HCl (Zofran) 4 mg IV Q8H PRN PRN Reason: Nausea And Vomiting Last Admin: 02/25/19 14:47 Dose: 4 mg Documented by: Ondansetron HCl (Zofran) 4 mg IV Q8H PRN PRN Reason: Nausea And Vomiting Oxycodone/Acetaminophen (Percocet 5/325) 2 tab PO Q4H PRN PRN Reason: Pain, Moderate (4-6) Last Admin: 02/25/19 23:30 Dose: 2 tab Documented by: Oxycodone/Acetaminophen (Percocet 5/325) 2 tab PO Q6H PRN PRN Reason: Pain, Moderate (4-6) Promethazine HCl (Phenergan) [address] Q6H PRN PRN Reason: Nausea And Vomiting Promethazine HCl (Phenergan) 25 mg PO Q6H PRN PRN Reason: Nausea And Vomiting Senna/Docusate Sodium (Senokot S) 2 tab PO Q12H MANGO Simethicone (Mylicon) 80 mg PO Q6H PRN PRN Reason: Gas pain Sodium Chloride (Sodium Chloride Flush Syringe 10 Ml) 10 ml IV PRN NR Stop: 03/02/19 13:59 Witch Veena/Glycerin (Tucks Pad) 1 each TP PRN PRN PRN Reason: Hemorrhoids/cleansing/soothing Witch Veena/Glycerin (Tucks Pad) 1 each TP PRN PRN PRN Reason: Hemorrhoid/cleansing/soothing Past History Past Medical History: other (None) Past Surgical History: Other () Social history: lives with family, full code. denies: smoking, alcohol abuse, prescription drug abuse, IV drug use Family history: other (No pulm issues) Medications and Allergies Allergies Allergy/AdvReac Type Severity Reaction Status Date / Time No Known Allergies Allergy Verified 02/02/17 11:01 Home Medications Medication Instructions Recorded Confirmed Last Taken Type Vit-Fe Fumar-FA [ 1 tab PO QDAY 04/27/18 02/24/19 04/25/18 History Vitamin] Active Meds: Active Medications Acetaminophen (Tylenol) 650 mg PO Q4H [facility] Last Admin: 02/26/19 20:56 Dose: 650 mg Documented by: Ferrous Sulfate (Feosol) 325 mg PO QDAY [facility] Last Admin: 02/26/19 09:31 Dose: 325 mg Documented by: Piperacillin Sod/Tazobactam Sod (Zosyn/Ns 4.5gm/100ml) 4.5 gm in 100 mls @ 200 mls/hr IV Q8H [facility]; Protocol Last Admin: 02/26/19 20:50 Dose: 200 mls/hr Documented by: Sodium Chloride (Nacl 0.9% 1000 Ml) 1,000 mls @ 150 mls/hr IV DIRECT MANGO Last Admin: 02/26/19 11:45 Dose: 150 mls/hr Documented by: Azithromycin 500 mg/ Sodium (Chloride) 250 mls @ 250 mls/hr IV Q24HR [facility]; Protocol Last Admin: 02/26/19 09:31 Dose: 250 mls/hr Documented by: Ibuprofen (Ibuprofen) 800 mg PO Q6H PRN PRN Reason: Pain, Mild (1-3) Last Admin: 02/26/19 05:22 Dose: 800 mg Documented by: Morphine Sulfate (Morphine) 2 mg IV Q4H PRN PRN Reason: Pain, Moderate (4-6) Last Admin: 02/24/19 20:27 Dose: 2 mg Documented by: Multi-Ingredient Ointment (Lansinoh) 1 applic TP PRN PRN PRN Reason: dryness/cracking Multivitamins/Iron/Calcium ( Vitamin) 1 each PO QDAY [facility] Last Admin: 02/26/19 09:31 Dose: 1 each Documented by: Naloxone HCl (Naloxone) 0.1 mg IV Q2MIN PRN PRN Reason: Res Rate </= 8 or 02 SAT < 92% Ondansetron HCl (Zofran) 4 mg IV Q8H PRN PRN Reason: Nausea And Vomiting Last Admin: 02/25/19 14:47 Dose: 4 mg Documented by: Oxycodone/Acetaminophen (Percocet 5/325) 2 tab PO Q4H PRN PRN Reason: Pain, Moderate (4-6) Last Admin: 02/25/19 23:30 Dose: 2 tab Documented by: Simethicone (Mylicon) 80 mg PO Q6H PRN PRN Reason: Gas pain Witch Veena/Glycerin (Tucks Pad) 1 each TP PRN PRN PRN Reason: Hemorrhoids/cleansing/soothing Review of Systems All systems: negative Physical Examination Vital signs: Vital Signs Pulse Pulse Ox 155 H 96 02/23/19 22:24 02/23/19 22:24 General appearance: no acute distress, alert Eyes: non-icteric ENT: oropharynx moist Neck: supple Effort: normal Ascultation: Bilateral: clear Cardiovascular: other (tachy, RR; no mrg) Gastrointestinal: hypoactive bowel sounds, soft, other (mildly distended) Integumentary: normal Extremities: no cyanosis, no edema, pink and warm normal mental status, non-focal exam, pupils equal and round, CN II-XII normal mood appropriate, affect normal Results - Laboratory Findings CBC and BMP: 02/27/19 10:28 02/26/19 07:40 PT/INR, D-dimer PT 12.3 Sec. (12.2-14.9) 02/25/19 05:04 INR 0.92 (0.87-1.13) 02/25/19 05:04 Abnormal lab findings: Abnormal Labs 02/23/19 02/23/19 02/23/19 22:50 23:05 23:05 WBC 13.8 H RBC 3.54 L Hgb Hct MCH MCHC RDW 15.3 H Lymph % (Auto) Lymph # Seg Neutrophils % Seg Neuts % (Manual) Lymphocytes % (Manual) 11.0 L Monocytes % (Manual) 10.0 H Nucleated RBC % Seg Neutrophils # Seg Neutrophils # Man 7.9 H Lymphocytes # (Manual) Monocytes # (Manual) 1.4 H Sodium 126 L Potassium Chloride 93.8 L Carbon Dioxide Creatinine Glucose 59 L Calcium Total Bilirubin AST 99 H ALT Total Protein 8.3 H Albumin 3.3 L Urine WBC (Auto) 23.0 H Crossmatch 02/24/19 02/24/19 02/24/19 01:00 01:00 17:07 WBC RBC 2.59 L Hgb 8.4 L Hct 24.3 L D MCH 33 H MCHC 35 H RDW Lymph % (Auto) 9.3 L Lymph # 1.0 L Seg Neutrophils % 87.0 H Seg Neuts % (Manual) Lymphocytes % (Manual) Monocytes % (Manual) Nucleated RBC % Seg Neutrophils # 9.5 H Seg Neutrophils # Man Lymphocytes # (Manual) Monocytes # (Manual) Sodium 132 L Potassium 3.5 L Chloride Carbon Dioxide 12 L Creatinine 0.6 L Glucose Calcium 8.2 L Total Bilirubin 1.70 H AST ALT Total Protein 6.0 L D Albumin 3.1 L Urine WBC (Auto) Crossmatch See Detail 02/24/19 02/24/19 02/25/19 17:07 20:19 05:04 WBC 12.9 H RBC 2.23 L Hgb 8.2 L 7.2 L Hct 23.6 L 21.0 L MCH MCHC RDW Lymph % (Auto) 5.7 L Lymph # 0.7 L Seg Neutrophils % 88.2 H Seg Neuts % (Manual) Lymphocytes % (Manual) Monocytes % (Manual) Nucleated RBC % Seg Neutrophils # 11.3 H Seg Neutrophils # Man Lymphocytes # (Manual) Monocytes # (Manual) Sodium Potassium Chloride 108.5 H Carbon Dioxide 16 L Creatinine 0.6 L Glucose 114 H Calcium Total Bilirubin AST ALT Total Protein Albumin Urine WBC (Auto) Crossmatch 02/25/19 02/26/19 02/26/19 05:04 07:40 07:40 WBC RBC 2.11 L Hgb 6.9 L Hct 19.9 L* MCH 33 H MCHC 35 H RDW Lymph % (Auto) Lymph # Seg Neutrophils % Seg Neuts % (Manual) 83.0 H Lymphocytes % (Manual) Monocytes % (Manual) Nucleated RBC % 1.0 H Seg Neutrophils # Seg Neutrophils # Man Lymphocytes # (Manual) 1.1 L Monocytes # (Manual) Sodium Potassium Chloride 111.3 H 114.2 H Carbon Dioxide 15 L 13 L Creatinine 0.6 L Glucose Calcium 8.2 L 8.1 L Total Bilirubin AST ALT 6 L Total Protein 5.2 L Albumin 2.4 L Urine WBC (Auto) Crossmatch 02/26/19 23:02 WBC RBC Hgb 9.5 L Hct 27.1 L D MCH MCHC RDW Lymph % (Auto) Lymph # Seg Neutrophils % Seg Neuts % (Manual) Lymphocytes % (Manual) Monocytes % (Manual) Nucleated RBC % Seg Neutrophils # Seg Neutrophils # Man Lymphocytes # (Manual) Monocytes # (Manual) Sodium Potassium Chloride Carbon Dioxide Creatinine Glucose Calcium Total Bilirubin AST ALT Total Protein Albumin Urine WBC (Auto) Crossmatch - Diagnostic Findings Chest x-ray: report reviewed, image reviewed (Cardiomegaly, reduced lung volumes, ? tiny L effusion) Assessment and Plan Imp: 1. S/p 2. Chorioamnitis 3. UTI 4. Sepsis 5. NAGMA Rec: 1. ABX per ID; f/u cultures 2. IVFs 3. Monitor in IMCU 4. SCDs/ambulate 5. Further plans pending clinical course Plan of care reviewed w/ patient/family, they understand/agree Thanks for the consult. Will follow w/ you.
[2019-02-27] MEDS: SODIUM CHLORIDE 0.9% 1000 ML 1,000 ML IV SCH ×3 (02:19→20:35)
[2019-02-27] MEDS: PIPERACIL/TAZOBACTA 4.5/NS 100 4.5 GM/100 ML VIAL IV SCH ×2 (02:20→11:36)
[2019-02-27] MEDS: ACETAMINOPHEN 325 MG/10.15 ML ORAL LIQD UNIT DOSE PO SCH ×6 (02:22→22:11)
--- NOTE | 2019-02-27 07:52 | Progress Note ---
Assessment and Plan POD3 s/p emergency csec/chorio/sepsis switched abx to zosyn and azithro tolerating diet h/h 9.5/27.1 after blood transfusion encourage IS and out of besd with assistance will discuss case with IM Dr. Boyd following closely Subjective - Subjective Date of service: 02/27/19 Principal diagnosis: chroirom csec, sepsis Patient reports: appetite normal, voiding normally, pain well controlled, flatus, ambulating normally : doing well, in NICU Objective - Vital Signs Latest vital signs: Vital Signs Temp Pulse Pulse Resp BP Pulse Ox 02/27/19 07:00 86 41 H 126/82 94 02/27/19 06:47 25 H 02/27/19 06:00 82 26 H 121/88 95 02/27/19 05:00 90 23 117/84 95 02/27/19 04:00 98.2 F 92 H 95 H 24 119/78 94 02/27/19 03:00 95 H 32 H 122/71 96 02/27/19 02:35 36 H 02/27/19 02:00 94 H 26 H 120/84 02/27/19 01:00 97 H 25 H 124/84 94 02/27/19 00:00 98.1 F 103 H 103 H 26 H 119/79 95 02/26/19 23:00 108 H 27 H 114/69 95 02/26/19 22:00 122 H 33 H 113/67 96 02/26/19 21:01 21 113/76 97 02/26/19 20:58 98 02/26/19 20:56 24 02/26/19 20:09 114 H 33 H 113/76 98 02/26/19 20:01 115 H 29 H 113/76 98 02/26/19 20:00 98.1 F 121 H 121 H 34 H 97 02/26/19 19:01 116 H 33 H 113/76 98 02/26/19 18:15 98.9 F 113 H 38 H 115/75 99 02/26/19 18:00 114 H 36 H 115/75 99 02/26/19 17:45 99 F 113 H 28 H 119/81 99 02/26/19 17:05 98.4 F 114 H 22 121/85 98 02/26/19 17:00 112 H 32 H 121/85 02/26/19 16:35 98.2 F 108 H 25 H 116/82 99 02/26/19 16:05 98.5 F 112 H 32 H 122/79 99 02/26/19 16:00 98.5 F 112 H 112 H 32 H 115/83 99 02/26/19 15:50 97.9 F 113 H 29 H 115/83 99 02/26/19 15:00 112 H 31 H 104/69 99 02/26/19 14:00 108 H 27 H 119/79 98 02/26/19 13:00 108 H 27 H 107/64 02/26/19 12:00 99 F 111 H 111 H 29 H 126/65 97 02/26/19 11:33 101 H 28 H 117/73 02/26/19 10:00 109 H 29 H 117/73 02/26/19 09:00 111 H 25 H 108/61 98 02/26/19 08:08 98.6 F 02/26/19 08:00 109 H 107 H 28 H 106/61 99 Intake and Output 02/26/19 02/26/19 02/27/19 15:59 23:59 07:59 Intake Total 250 1705 200 Output Total 550 500 Balance 250 1155 -300 Intake: IV 100 1100 NaCl 0.9% 1000 ml 1,000 1000 ml @ 150 mls/hr IV DIRECT [facility] Rx#:[id number] ZOSYN/NS 4.5GM/100ML 4.5 100 100 gm In 100 ml @ 200 mls/hr IV Q8H [facility] Rx#:[id number] Oral 150 75 200 Blood Product 0 Leukoreduced Red Blood 0 Cells Unit [id number] Leukoreduced Red Blood 0 Cells Unit [id number] Other 530 Leukoreduced Red Blood 235 Cells Unit [id number] Leukoreduced Red Blood 295 Cells Unit [id number] Output: Urine 550 500 Indwelling Catheter 550 500 Other: Total, Intake Amount 150 0 150 Total, Output Amount 550 500 Voiding Method Indwelling Catheter Indwelling Catheter Indwelling Catheter - Exam Breasts: Present: normal Cardiovascular: Present: Regular rate, Normal S1 Lungs: Present: Clear to auscultation, Normal air movement Abdomen: Present: normal appearance, soft, normal bowel sounds. Absent: distention, tenderness, guarding Vulva: both: normal Uterus: Present: normal, firm, fundal height below umbilicus. Absent: bogginess, tenderness Extremities: Present: normal Deep Tendon Reflex Grade: Normal +2 Incision: Present: normal, dry, intact - Labs Labs: Abnormal lab results 02/23/19 02/24/19 02/26/19 Range/Units 23:05 01:00 07:40 WBC 13.8 H (4.5-11.0) K/mm3 RBC 3.54 L 2.11 L (3.65-5.03) M/mm3 Hgb 6.9 L (10.1-14.3) gm/dl Hct 19.9 L* (30.3-42.9) % MCH 33 H (28-32) pg MCHC 35 H (30-34) % RDW 15.3 H (13.2-15.2) % Seg Neuts % (Manual) 83.0 H (40.0-70.0) % Lymphocytes % (Manual) 11.0 L (13.4-35.0) % Monocytes % (Manual) 10.0 H (0.0-7.3) % Nucleated RBC % 1.0 H (0.0-0.9) % Seg Neutrophils # Man 7.9 H (1.8-7.7) K/mm3 Lymphocytes # (Manual) 1.1 L (1.2-5.4) K/mm3 Monocytes # (Manual) 1.4 H (0.0-0.8) K/mm3 Chloride (98-107) mmol/L Carbon Dioxide (22-30) mmol/L Calcium (8.4-10.2) mg/dL ALT (7-56) units/L Total Protein (6.3-8.2) g/dL Albumin (3.9-5) g/dL Crossmatch See Detail 02/26/19 02/26/19 Range/Units 07:40 23:02 WBC (4.5-11.0) K/mm3 RBC (3.65-5.03) M/mm3 Hgb 9.5 L (10.1-14.3) gm/dl Hct 27.1 L D (30.3-42.9) % MCH (28-32) pg MCHC (30-34) % RDW (13.2-15.2) % Seg Neuts % (Manual) (40.0-70.0) % Lymphocytes % (Manual) (13.4-35.0) % Monocytes % (Manual) (0.0-7.3) % Nucleated RBC % (0.0-0.9) % Seg Neutrophils # Man (1.8-7.7) K/mm3 Lymphocytes # (Manual) (1.2-5.4) K/mm3 Monocytes # (Manual) (0.0-0.8) K/mm3 Chloride 114.2 H (98-107) mmol/L Carbon Dioxide 13 L (22-30) mmol/L Calcium 8.1 L (8.4-10.2) mg/dL ALT 6 L (7-56) units/L Total Protein 5.2 L (6.3-8.2) g/dL Albumin 2.4 L (3.9-5) g/dL Crossmatch
[2019-02-27] MEDS: AZITHROMYCIN 500 MG in SODIUM CHLORIDE 0.9% 250ML 250 ML IV SCH (09:54)
[2019-02-27] MEDS: PRENATAL VIT27-FE FUMARATE-FOLIC ACID VIT TAB PO SCH (09:54)
[2019-02-27] MEDS: FERROUS SULFATE 325 MG TAB PO SCH (09:54)
[2019-02-27 10:57] LABS: Hematocrit 30.8 % (30.3-42.9); Hemoglobin 10.3 gm/dl (10.1-14.3); Mean Corpuscular HGB Conc 33 % (30-34); Mean Corpuscular Volume 93 fl (79-97); Platelet Count 304 K/mm3 (140-440); Red Blood Count 3.33 M/mm3 (3.65-5.03); Red Cell Distribution Width 16.2 % (13.2-15.2)
--- NOTE | 2019-02-27 12:05 | Progress Note ---
Assessment and Plan Cultures: Blood culture 02/23/2019 no growth so far Blood culture 02/25/2019 - pending Blood culture 02/26/2019 - pending Urine culture 02/23/2019 10-100K mixed bacteria. Assessment: 18 y/o female with 33 weeks admitted on 02/23/2019 due to abdominal pain and vaginal clear discharge, as well as cough now with: 1) Sepsis: present on admission with tachycardia, fever, leukococytosis; likely due to UTI +/- choriamnionitis +/- ?r/o pneumonia/flu 2) S/p C section: for and maternal tachycardia and presumed chorioamnionitis on 02/24/2019 3) UTI: UA with 23 wbc trace LE. Urine culture 02/23/2019 10-100K mixed bacteria. 4) Chorioamnionitis: premature ROM. CT abd shows enlarged heterogenous uterus with scattered free air. 5) Recent gonorrhea: treated Recs: continue pip/tazo IV Flu negative check GC/chlamydia - pending s/p blood transfusion Continue azithromycin follow up blood cultures Monitor leukocytosis, if persistent may need CT to rule out abscess. Will follow. Thanks for consultation [facility] ([facility] M: [phone] O: [phone] F: [phone] Subjective Principal diagnosis: chroirom csec, sepsis Interval history: Afebrile, with a slightly elevated white count. Objective - Exam Narrative Exam: Constitutional: Alert, cooperative. No acute distress Head, Ears, Nose: Normocephalic, atraumatic. External ears, nose normal Eyes: Conjunctivae/corneas clear. No icterus. No ptosis. Neck: Supple, no meningeal signs Oral: dentition fair, no thrush Cardiovascular: S1, S2 normal. Respiratory: Good air entry, clear to auscultation bilaterally GI: soft +csection wound with dressings Musculoskeletal: No pedal edema, no cyanosis. b/l leg wounds Skin: no rash Hem/Lymphatic: No palpable cervical or supraclavicular nodes. No lymphangitis Psych: Mood ok. Affect flat Neurological: Awake, alert, oriented. - Constitutional Vitals: Vital Signs Temp Pulse Resp BP Pulse Ox 98.2 F 105 H 33 H 104/64 96 02/27/19 08:08 02/27/19 11:00 02/27/19 11:00 02/27/19 11:00 02/27/19 09:00 Temperature -Last 24 Hours Temperature 98.2 F Temperature 98.3 F Temperature 98.2 F Temperature 98.1 F Temperature 98.1 F Temperature 98.9 F Temperature 99 F Temperature 98.4 F Temperature 98.2 F Temperature 98.5 F Temperature 98.5 F Temperature 97.9 F - Labs CBC & Chem 7: 02/27/19 10:28 02/26/19 07:40 Labs: Abnormal lab results 02/24/19 02/26/19 02/27/19 Range/Units 01:00 23:02 10:28 WBC 12.8 H (4.5-11.0) K/mm3 RBC 3.33 L (3.65-5.03) M/mm3 Hgb 9.5 L (10.1-14.3) gm/dl Hct 27.1 L D (30.3-42.9) % RDW 16.2 H (13.2-15.2) % Crossmatch See Detail
[2019-02-27] MEDS ORDERED: MAGNESIUM HYDROXIDE (MOM) ORAL LIQD UDC PO PRN (13:54)
[2019-02-27] MEDS ORDERED: LANOLIN/ZINC/DIMETHICONE (LANSINOH) 7 GM TP PRN (13:54)
[2019-02-27] MEDS ORDERED: diphenhydrAMINE 25 MG CAP PO PRN (13:54)
[2019-02-27] MEDS ORDERED: HYDROcodone/ACETAMINOPHEN 5-325 MG TAB PO PRN (13:54)
[2019-02-27] MEDS ORDERED: oxyCODONE /ACETAMINOPHEN 5-325MG TAB PO PRN (13:54)
[2019-02-27] MEDS ORDERED: WITCH HAZEL/ GLYCERIN PAD TP PRN (13:54)
[2019-02-27] MEDS ORDERED: ONDANSETRON 4 MG/2 ML INJ IV PRN (13:54)
[2019-02-27] MEDS ORDERED: PROMETHAZINE 25 MG RECT SUPP PR PRN (13:54)
[2019-02-27] MEDS ORDERED: ACETAMINOPHEN 325 MG TAB PO PRN (13:54)
[2019-02-27] MEDS ORDERED: PROMETHAZINE 25 MG TAB PO PRN (13:54)
--- NOTE | 2019-02-27 13:55 | Progress Note ---
Assessment and Plan Assessment and plan: 18 y/o female with 33 weeks admitted on 02/23/2019 due to abdominal pain and vaginal clear discharge. On admission, her temperature of 101.2, HR 140, 112/67. WBC 13.8. Creat 0.8. AST 99. UA with 23 wbc trace LE. Blood culture 02/23/2019 no growth so far. Urine culture 02/23/2019 10-100K mixed bacteria. She underwent urgent C section for and maternal tachycardia, Premature ROM and presumed chorioamnionitis on 02/24/2019. Since then noted hypotension and hypothermia. CT abd shows enlarged heterogenous uterus with scattered free air. Septic Shock with Hypothermia Sepsis Chorioamionitis Urinary tract present on 02/23 Anemia, likely acute on chronic - s/p C -section Plan cont IV fluid for maintenance transfused 1 unit PRBC cont Zosyn and Azithromycin ID consulted, following patient stable to transfer to [facility] and Baby History Interval history: Less abd pain No more fever Hospitalist Physical - Physical exam Narrative exam: Gen: Not in acute distress, lying in bed, obese HEENT: Normocephalic, atraumatic Neck: supple, no JVD Heart: S1 and S2 reg, no murmurs, rubs or gallop Lungs: Clear to auscultation bilaterally, Abd: soft, mild tender lower abd, wound, mild distended, normal BS, Ext: No edema, no clubbing, no cyanosis Neuro: Awake, alert, oriented X 3, moves all ext - Constitutional Vitals: Temp Pulse Resp BP Pulse Ox 98.2 F 105 H 33 H 104/64 96 02/27/19 08:08 02/27/19 11:00 02/27/19 11:00 02/27/19 11:00 02/27/19 09:00 General appearance: Present: no acute distress, well-nourished Results - Labs CBC & Chem 7: 02/28/19 01:07 02/28/19 04:56 Labs: Laboratory Last Values WBC 12.8 K/mm3 (4.5-11.0) H 02/27/19 10:28 RBC 3.33 M/mm3 (3.65-5.03) L 02/27/19 10:28 Hgb 10.3 gm/dl (10.1-14.3) 02/27/19 10:28 Hct 30.8 % (30.3-42.9) 02/27/19 10:28 MCV 93 fl (79-97) 02/27/19 10:28 MCH 31 pg (28-32) 02/27/19 10:28 MCHC 33 % (30-34) 02/27/19 10:28 RDW 16.2 % (13.2-15.2) H 02/27/19 10:28 Plt Count 304 K/mm3 (140-440) 02/27/19 10:28 Lymph % (Auto) 5.7 % (13.4-35.0) L 02/25/19 05:04 [place] % (Auto) 5.9 % (0.0-7.3) 02/25/19 05:04 Eos % (Auto) 0.1 % (0.0-4.3) 02/25/19 05:04 Baso % (Auto) 0.1 % (0.0-1.8) 02/25/19 05:04 Lymph # 0.7 K/mm3 (1.2-5.4) L 02/25/19 05:04 [place] # 0.8 K/mm3 (0.0-0.8) 02/25/19 05:04 Eos # 0.0 K/mm3 (0.0-0.4) 02/25/19 05:04 Baso # 0.0 K/mm3 (0.0-0.1) 02/25/19 05:04 Add Manual Diff Complete 02/26/19 07:40 Total Counted 100 02/26/19 07:40 Seg Neutrophils % 88.2 % (40.0-70.0) H 02/25/19 05:04 Seg Neuts % (Manual) 83.0 % (40.0-70.0) H 02/26/19 07:40 Band Neutrophils % 1.0 % 02/26/19 07:40 Lymphocytes % (Manual) 14.0 % (13.4-35.0) 02/26/19 07:40 Reactive Lymphs % (Man) 0 % 02/26/19 07:40 Monocytes % (Manual) 0 % (0.0-7.3) 02/26/19 07:40 Eosinophils % (Manual) 0 % (0.0-4.3) 02/26/19 07:40 Basophils % (Manual) 0 % (0.0-1.8) 02/26/19 07:40 Metamyelocytes % 2.0 % 02/26/19 07:40 Myelocytes % 0 % 02/26/19 07:40 Promyelocytes % 0 % 02/26/19 07:40 Blast Cells % 0 % 02/26/19 07:40 Nucleated RBC % 1.0 % (0.0-0.9) H 02/26/19 07:40 Seg Neutrophils # 11.3 K/mm3 (1.8-7.7) H 02/25/19 05:04 Seg Neutrophils # Man 6.3 K/mm3 (1.8-7.7) 02/26/19 07:40 Band Neutrophils # 0.1 K/mm3 02/26/19 07:40 Lymphocytes # (Manual) 1.1 K/mm3 (1.2-5.4) L 02/26/19 07:40 Abs React Lymphs (Man) 0.0 K/mm3 02/26/19 07:40 Monocytes # (Manual) 0.0 K/mm3 (0.0-0.8) 02/26/19 07:40 Eosinophils # (Manual) 0.0 K/mm3 (0.0-0.4) 02/26/19 07:40 Basophils # (Manual) 0.0 K/mm3 (0.0-0.1) 02/26/19 07:40 Metamyelocytes # 0.2 K/mm3 02/26/19 07:40 Myelocytes # 0.0 K/mm3 02/26/19 07:40 Promyelocytes # 0.0 K/mm3 02/26/19 07:40 Blast Cells # 0.0 K/mm3 02/26/19 07:40 WBC Morphology Not Reportable 02/26/19 07:40 Hypersegmented Neuts Not Reportable 02/26/19 07:40 Hyposegmented Neuts Not Reportable 02/26/19 07:40 Hypogranular Neuts Not Reportable 02/26/19 07:40 Smudge Cells Not Reportable 02/26/19 07:40 Toxic Granulation Not Reportable 02/26/19 07:40 Toxic Vacuolation Not Reportable 02/26/19 07:40 Dohle Bodies Not Reportable 02/26/19 07:40 Pelger-Huet Anomaly Not Reportable 02/26/19 07:40 Barrera Rods Not Reportable 02/26/19 07:40 Platelet Estimate Consistent w auto 02/26/19 07:40 Clumped Platelets Not Reportable 02/26/19 07:40 Plt Clumps, EDTA Not Reportable 02/26/19 07:40 Large Platelets Rare 02/26/19 07:40 Giant Platelets Not Reportable 02/26/19 07:40 Platelet Satelliting Not Reportable 02/26/19 07:40 Plt Morphology Comment Not Reportable 02/26/19 07:40 RBC Morphology Not Reportable 02/26/19 07:40 Dimorphic RBCs Not Reportable 02/26/19 07:40 Polychromasia Not Reportable 02/26/19 07:40 Hypochromasia Not Reportable 02/26/19 07:40 Poikilocytosis Not Reportable 02/26/19 07:40 Anisocytosis Few 02/26/19 07:40 Microcytosis Not Reportable 02/26/19 07:40 Macrocytosis Not Reportable 02/26/19 07:40 Spherocytes Not Reportable 02/26/19 07:40 Pappenheimer Bodies Not Reportable 02/26/19 07:40 Sickle Cells Not Reportable 02/26/19 07:40 Target Cells Not Reportable 02/26/19 07:40 Tear Drop Cells Not Reportable 02/26/19 07:40 Ovalocytes Few 02/26/19 07:40 Stomatocytes Rare 02/23/19 23:05 Helmet Cells Not Reportable 02/26/19 07:40 [place] Bodies Not Reportable 02/26/19 07:40 [place] Rings Not Reportable 02/26/19 07:40 [place] Cells Not Reportable 02/26/19 07:40 Bite Cells Not Reportable 02/26/19 07:40 Crenated Cell Not Reportable 02/26/19 07:40 Elliptocytes Not Reportable 02/26/19 07:40 Acanthocytes (Spur) Not Reportable 02/26/19 07:40 Rouleaux Not Reportable 02/26/19 07:40 Hemoglobin C Crystals Not Reportable 02/26/19 07:40 Schistocytes Not Reportable 02/26/19 07:40 Malaria parasites Not Reportable 02/26/19 07:40 Alex Bodies Not Reportable 02/26/19 07:40 Hem Pathologist Commnt No 02/26/19 07:40 PT 12.3 Sec. (12.2-14.9) 02/25/19 05:04 INR 0.92 (0.87-1.13) 02/25/19 05:04 APTT 32.0 Sec. (24.2-36.6) 02/25/19 05:04 Sodium 141 mmol/L (137-145) 02/26/19 07:40 Potassium 3.6 mmol/L (3.6-5.0) 02/26/19 07:40 Chloride 114.2 mmol/L (98-107) H 02/26/19 07:40 Carbon Dioxide 13 mmol/L (22-30) L 02/26/19 07:40 Anion Gap 17 mmol/L 02/26/19 07:40 BUN 10 mg/dL (7-17) 02/26/19 07:40 Creatinine 0.8 mg/dL (0.7-1.2) 02/26/19 07:40 Estimated GFR > 60 ml/min 02/26/19 07:40 BUN/Creatinine Ratio 13 % 02/26/19 07:40 Glucose 91 mg/dL (65-100) 02/26/19 07:40 Calcium 8.1 mg/dL (8.4-10.2) L 02/26/19 07:40 Total Bilirubin 0.80 mg/dL (0.1-1.2) 02/26/19 07:40 AST 19 units/L (5-40) 02/26/19 07:40 ALT 6 units/L (7-56) L 02/26/19 07:40 Alkaline Phosphatase 66 units/L (35-129) 02/26/19 07:40 Total Protein 5.2 g/dL (6.3-8.2) L 02/26/19 07:40 Albumin 2.4 g/dL (3.9-5) L 02/26/19 07:40 Albumin/Globulin Ratio 0.9 % 02/26/19 07:40 Urine Color Nina (Yellow) 02/23/19 22:50 Urine Turbidity Slightly-cloudy (Clear) 02/23/19 22:50 Urine pH 6.0 (5.0-7.0) 02/23/19 22:50 Ur Specific [place] 1.020 (1.003-1.030) 02/23/19 22:50 Urine Protein >500 mg/dL (Negative) 02/23/19 22:50 Urine Glucose (UA) Neg mg/dL (Negative) 02/23/19 22:50 Urine Ketones 80 mg/dL (Negative) 02/23/19 22:50 Urine Blood Sm (Negative) 02/23/19 22:50 Urine Nitrite Neg (Negative) 02/23/19 22:50 Urine Bilirubin Neg (Negative) 02/23/19 22:50 Urine Urobilinogen 4.0 mg/dL (<2.0) 02/23/19 22:50 Ur Leukocyte Esterase Tr (Negative) 02/23/19 22:50 Urine WBC (Auto) 23.0 /HPF (0.0-6.0) H 02/23/19 22:50 Urine RBC (Auto) 8.0 /HPF (0.0-6.0) 02/23/19 22:50 U Epithel Cells (Auto) 6.0 /HPF (0-13.0) 02/23/19 22:50 Urine Bacteria (Auto) 1+ /HPF (Negative) 02/23/19 22:50 Urine Mucus Few /HPF 02/23/19 22:50 Influenza A (Rapid) Negative (Negative) 02/25/19 08:35 Influenza A (RT-PCR) Negative (Negative) 02/25/19 08:35 Influenza B (Rapid) Negative (Negative) 02/25/19 08:35 Influenza B (RT-PCR) Negative (Negative) 02/25/19 08:35 Blood Type O POSITIVE 02/24/19 01:00 Antibody Screen Negative 02/24/19 01:00 Crossmatch See Detail 02/24/19 01:00 Active Medications - Current Medications Current Medications: Generic Name Dose Route Start Last Admin Trade Name Freq PRN Reason Stop Dose Admin Acetaminophen 650 mg 02/26/19 09:30 02/27/19 09:53 Tylenol PO 650 mg Q4H MANGO Administration Ferrous Sulfate 325 mg 02/24/19 10:00 02/27/19 09:54 Feosol PO 325 mg QDAY MANGO Administration Piperacillin Sod/Tazobactam Sod 4.5 gm in 100 mls @ 200 mls/hr 02/25/19 03:00 02/27/19 11:36 Zosyn/Ns 4.5gm/100ml IV 200 mls/hr Q8H MANGO Administration Protocol Sodium Chloride 1,000 mls @ 150 mls/hr 02/25/19 03:00 02/27/19 09:53 Nacl 0.9% 1000 Ml IV 150 mls/hr DIRECT MANGO Administration Azithromycin 500 mg/ Sodium 250 mls @ 250 mls/hr 02/25/19 12:00 02/27/19 09:54 Chloride IV 250 mls/hr Q24HR MANOG Administration Protocol Ibuprofen 800 mg 02/24/19 08:28 02/26/19 05:22 Ibuprofen PO 800 mg Q6H PRN Administration Pain, Mild (1-3) Morphine Sulfate 2 mg 02/24/19 08:28 02/24/19 20:27 Morphine IV 2 mg Q4H PRN Administration Pain, Moderate (4-6) Multi-Ingredient Ointment 1 applic 02/24/19 08:28 Lansinoh TP PRN PRN dryness/cracking Multivitamins/Iron/Calcium 1 each 02/24/19 10:00 02/27/19 09:54 Vitamin PO 1 each QDAY MANGO Administration Naloxone HCl 0.1 mg 02/24/19 08:28 Naloxone IV Q2MIN PRN Res Rate </= 8 or 02 SAT < 92% Ondansetron HCl 4 mg 02/24/19 08:28 02/25/19 14:47 Zofran IV 4 mg Q8H PRN Administration Nausea And Vomiting Oxycodone/Acetaminophen 2 tab 02/24/19 08:28 02/25/19 23:30 Percocet 5/325 PO 2 tab Q4H PRN Administration Pain, Moderate (4-6) Simethicone 80 mg 02/24/19 08:28 Mylicon PO Q6H PRN Gas pain Witch Veena/Glycerin 1 each 02/24/19 08:28 Tucks Pad TP PRN PRN Hemorrhoids/cleansing/soothing Nutrition/Malnutrition Assess - Dietary Evaluation Nutrition/Malnutrition Findings: Nutrition Notes Start: 02/25/19 09:00 Freq: Status: Active Protocol: Document 02/25/19 09:00 LP (Rec: 02/25/19 09:02 LP [id number]) Nutrition Notes Initial or Follow up Brief Note Subjective/Other Information Error. Pt does not need to be seen today. Nutrition Intervention Revisit per MD consult or patient Sign Off request:
--- NOTE | 2019-02-27 13:59 | Event Note ---
Date: 02/27/19 Patient medically stable to transfer to mother and baby.
[2019-02-27] MEDS ORDERED: SENNOSIDES/DOCUSATE SODIUM 8.6/50 MG TAB PO SCH (14:00)
--- NOTE | 2019-02-27 15:11 | Progress Note ---
Assessment and Plan Imp: 1. S/p 2. Chorioamnitis 3. UTI 4. Sepsis 5. NAGMA Rec: 1. ABX per ID; f/u cultures 2. She has a hyperchloremic non-anion gap metabolic acidosis probably due to normal saline, and this is increasing minute ventilation and SOB; stop NS and monitor BMP, should correct on its own 3. Okay for transfer out of [facility] 4. SCDs/ambulate Plan of care reviewed w/ patient/family, they understand/agree. Subjective Date of service: 02/27/19 Principal diagnosis: chroirom csec, sepsis Interval history: No events. SOB still but better. No new complaints. Active Medications Acetaminophen (Tylenol) 650 mg PO Q4H [facility] Last Admin: 02/27/19 09:53 Dose: 650 mg Documented by: Acetaminophen (Tylenol) 650 mg PO Q4H PRN PRN Reason: Pain MILD(1-3)/Fever >100.5/DUVALL Acetaminophen/Hydrocodone Bitart ([place] 5/325) 2 each PO Q6H PRN PRN Reason: Pain, Moderate (4-6) Bisacodyl (Dulcolax) 10 mg MS BID PRN PRN Reason: Constipation Diphenhydramine HCl (Benadryl) 25 mg PO Q6H PRN PRN Reason: Itching Docusate Sodium (Colace) 100 mg PO BID MANGO Ferrous Sulfate (Feosol) 325 mg PO QDAY [facility] Last Admin: 02/27/19 09:54 Dose: 325 mg Documented by: Piperacillin Sod/Tazobactam Sod (Zosyn/Ns 4.5gm/100ml) 4.5 gm in 100 mls @ 200 mls/hr IV Q8H [facility]; Protocol Last Admin: 02/27/19 11:36 Dose: 200 mls/hr Documented by: Azithromycin 500 mg/ Sodium (Chloride) 250 mls @ 250 mls/hr IV Q24HR [facility]; Protocol Last Admin: 02/27/19 09:54 Dose: 250 mls/hr Documented by: Ibuprofen (Ibuprofen) 800 mg PO Q6H PRN PRN Reason: Pain, Mild (1-3) Last Admin: 02/26/19 05:22 Dose: 800 mg Documented by: Ibuprofen (Ibuprofen) 600 mg PO Q6H MANGO Magnesium Hydroxide (Milk Of Magnesia) 30 ml PO HS PRN PRN Reason: Constipation Measles/Mumps/Rubella Vaccine Live (M-M-R Ii Vaccine) 0.5 ml SUB-Q .ONCE ONE Stop: 02/28/19 13:55 Morphine Sulfate (Morphine) 2 mg IV Q4H PRN PRN Reason: Pain, Moderate (4-6) Last Admin: 02/24/19 20:27 Dose: 2 mg Documented by: Multi-Ingredient Ointment (Lansinoh) 1 applic TP PRN PRN PRN Reason: dryness/cracking Multi-Ingredient Ointment (Lansinoh) 1 applic TP PRN PRN PRN Reason: Sore Nipples Multivitamins/Iron/Calcium ( Vitamin) 1 each PO QDAY MANGO Last Admin: 02/27/19 09:54 Dose: 1 each Documented by: Naloxone HCl (Naloxone) 0.1 mg IV Q2MIN PRN PRN Reason: Res Rate </= 8 or 02 SAT < 92% Ondansetron HCl (Zofran) 4 mg IV Q8H PRN PRN Reason: Nausea And Vomiting Last Admin: 02/25/19 14:47 Dose: 4 mg Documented by: Ondansetron HCl (Zofran) 4 mg IV Q8H PRN PRN Reason: Nausea And Vomiting Oxycodone/Acetaminophen (Percocet 5/325) 2 tab PO Q4H PRN PRN Reason: Pain, Moderate (4-6) Last Admin: 02/25/19 23:30 Dose: 2 tab Documented by: Oxycodone/Acetaminophen (Percocet 5/325) 2 tab PO Q6H PRN PRN Reason: Pain, Moderate (4-6) Promethazine HCl (Phenergan) 25 mg MS Q6H PRN PRN Reason: Nausea And Vomiting Promethazine HCl (Phenergan) 25 mg PO Q6H PRN PRN Reason: Nausea And Vomiting Senna/Docusate Sodium (Senokot S) 2 tab PO Q12H MANGO Simethicone (Mylicon) 80 mg PO Q6H PRN PRN Reason: Gas pain Sodium Chloride (Sodium Chloride Flush Syringe 10 Ml) 10 ml IV PRN NR Stop: 03/02/19 13:59 Witch Veena/Glycerin (Tucks Pad) 1 each TP PRN PRN PRN Reason: Hemorrhoids/cleansing/soothing Witch Veena/Glycerin (Tucks Pad) 1 each TP PRN PRN PRN Reason: Hemorrhoid/cleansing/soothing Objective Vital Signs - 12hr 02/27/19 02/27/19 02/27/19 04:00 05:00 06:00 Temperature 98.2 F Pulse Rate 92 H 90 82 Pulse Rate [ 95 H From Monitor] Respiratory 24 23 26 H Rate Blood Pressure 119/78 117/84 121/88 O2 Sat by Pulse 94 95 95 Oximetry 02/27/19 02/27/19 02/27/19 06:47 07:00 07:51 Temperature Pulse Rate 86 Pulse Rate [ From Monitor] Respiratory 25 H 41 H Rate Blood Pressure 126/82 O2 Sat by Pulse 94 94 Oximetry 02/27/19 02/27/19 02/27/19 08:00 08:08 09:00 Temperature 98.3 F 98.2 F Pulse Rate 93 H 91 H Pulse Rate [ 96 H From Monitor] Respiratory 26 H 33 H Rate Blood Pressure 117/84 109/67 O2 Sat by Pulse 94 96 Oximetry 02/27/19 02/27/19 02/27/19 10:01 11:00 12:00 Temperature 98.3 F Pulse Rate 103 H 105 H 92 H Pulse Rate [ 92 H From Monitor] Respiratory 29 H 33 H 24 Rate Blood Pressure 103/62 104/64 O2 Sat by Pulse 97 Oximetry Constitutional: no acute distress, alert Eyes: non-icteric ENT: oropharynx moist Neck: supple Effort: normal Ascultation: Bilateral: clear Cardiovascular: other (tachy, RR; no mrg) Gastrointestinal: hypoactive bowel sounds, soft, other (mildly distended) Integumentary: normal Extremities: no cyanosis, no edema, pink and warm Neurologic: normal mental status, non-focal exam, pupils equal and round, CN II- XII normal Psychiatric: mood appropriate, affect normal CBC and BMP: 02/27/19 10:28 02/26/19 07:40 ABG, PT/INR, D-dimer: PT/INR, D-dimer PT 12.3 Sec. (12.2-14.9) 02/25/19 05:04 INR 0.92 (0.87-1.13) 02/25/19 05:04 Abnormal lab findings: Abnormal Labs 02/23/19 02/23/19 02/23/19 22:50 23:05 23:05 WBC 13.8 H RBC 3.54 L Hgb Hct MCH MCHC RDW 15.3 H Lymph % (Auto) Lymph # Seg Neutrophils % Seg Neuts % (Manual) Lymphocytes % (Manual) 11.0 L Monocytes % (Manual) 10.0 H Nucleated RBC % Seg Neutrophils # Seg Neutrophils # Man 7.9 H Lymphocytes # (Manual) Monocytes # (Manual) 1.4 H Sodium 126 L Potassium Chloride 93.8 L Carbon Dioxide Creatinine Glucose 59 L Calcium Total Bilirubin AST 99 H ALT Total Protein 8.3 H Albumin 3.3 L Urine WBC (Auto) 23.0 H Crossmatch 02/24/19 02/24/19 02/24/19 01:00 01:00 17:07 WBC RBC 2.59 L Hgb 8.4 L Hct 24.3 L D MCH 33 H MCHC 35 H RDW Lymph % (Auto) 9.3 L Lymph # 1.0 L Seg Neutrophils % 87.0 H Seg Neuts % (Manual) Lymphocytes % (Manual) Monocytes % (Manual) Nucleated RBC % Seg Neutrophils # 9.5 H Seg Neutrophils # Man Lymphocytes # (Manual) Monocytes # (Manual) Sodium 132 L Potassium 3.5 L Chloride Carbon Dioxide 12 L Creatinine 0.6 L Glucose Calcium 8.2 L Total Bilirubin 1.70 H AST ALT Total Protein 6.0 L D Albumin 3.1 L Urine WBC (Auto) Crossmatch See Detail 02/24/19 02/24/19 02/25/19 17:07 20:19 05:04 WBC 12.9 H RBC 2.23 L Hgb 8.2 L 7.2 L Hct 23.6 L 21.0 L MCH MCHC RDW Lymph % (Auto) 5.7 L Lymph # 0.7 L Seg Neutrophils % 88.2 H Seg Neuts % (Manual) Lymphocytes % (Manual) Monocytes % (Manual) Nucleated RBC % Seg Neutrophils # 11.3 H Seg Neutrophils # Man Lymphocytes # (Manual) Monocytes # (Manual) Sodium Potassium Chloride 108.5 H Carbon Dioxide 16 L Creatinine 0.6 L Glucose 114 H Calcium Total Bilirubin AST ALT Total Protein Albumin Urine WBC (Auto) Crossmatch 02/25/19 02/26/19 02/26/19 05:04 07:40 07:40 WBC RBC 2.11 L Hgb 6.9 L Hct 19.9 L* MCH 33 H MCHC 35 H RDW Lymph % (Auto) Lymph # Seg Neutrophils % Seg Neuts % (Manual) 83.0 H Lymphocytes % (Manual) Monocytes % (Manual) Nucleated RBC % 1.0 H Seg Neutrophils # Seg Neutrophils # Man Lymphocytes # (Manual) 1.1 L Monocytes # (Manual) Sodium Potassium Chloride 111.3 H 114.2 H Carbon Dioxide 15 L 13 L Creatinine 0.6 L Glucose Calcium 8.2 L 8.1 L Total Bilirubin AST ALT 6 L Total Protein 5.2 L Albumin 2.4 L Urine WBC (Auto) Crossmatch 02/26/19 02/27/19 23:02 10:28 WBC 12.8 H RBC 3.33 L Hgb 9.5 L Hct 27.1 L D MCH MCHC RDW 16.2 H Lymph % (Auto) Lymph # Seg Neutrophils % Seg Neuts % (Manual) Lymphocytes % (Manual) Monocytes % (Manual) Nucleated RBC % Seg Neutrophils # Seg Neutrophils # Man Lymphocytes # (Manual) Monocytes # (Manual) Sodium Potassium Chloride Carbon Dioxide Creatinine Glucose Calcium Total Bilirubin AST ALT Total Protein Albumin Urine WBC (Auto) Crossmatch Chest x-ray: report reviewed, image reviewed
[2019-02-27] MEDS ORDERED: SODIUM CHLORIDE 0.9% 1000 ML 1,000 ML ONE ×2 (17:57→21:52)
[2019-02-27] MEDS ORDERED: LACTATED RINGERS 0 ML ONE (21:50)
[2019-02-27] MEDS ORDERED: DOCUSATE SODIUM 100 MG CAP PO SCH (22:00)
[2019-02-27] MEDS ORDERED: SODIUM CHLORIDE 0.9% 1000 ML 1,000 ML IV SCH (22:00)
[2019-02-27] MEDS: IBUPROFEN 600 MG TAB PO SCH (23:58)
[2019-02-28] MEDS: PIPERACIL/TAZOBACTA 4.5/NS 100 4.5 GM/100 ML VIAL IV SCH ×2 (00:03→08:53)
[2019-02-28 01:20] LABS: Hematocrit 28.4 % (30.3-42.9); Hemoglobin 9.6 gm/dl (10.1-14.3)
[2019-02-28] MEDS: ACETAMINOPHEN 325 MG/10.15 ML ORAL LIQD UNIT DOSE PO SCH ×2 (03:07→09:30)
[2019-02-28 05:57] LABS: BUN/Creatinine Ratio 13; Blood Urea Nitrogen 8 mg/dL (7-17); Calcium 7.8 mg/dL (8.4-10.2); Hemolysis Index 9
[2019-02-28] MEDS: IBUPROFEN 600 MG TAB PO SCH (06:14)
[2019-02-28] MEDS ORDERED: POTASSIUM CHLORIDE ER 20 MEQ TAB PO SCH (09:00)
[2019-02-28] MEDS: FERROUS SULFATE 325 MG TAB PO SCH (09:00)
[2019-02-28] MEDS: PRENATAL VIT27-FE FUMARATE-FOLIC ACID VIT TAB PO SCH (09:00)
--- NOTE | 2019-02-28 09:07 | Progress Note ---
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 She was transferred to Mother/Baby from ICU yesterday. Labs and vital signs are stable. S/p pulm consult. Patient reports: appetite normal, voiding normally, pain well controlled, flatus [place]: doing well, in NICU, bottle feeding Objective - Vital Signs Latest vital signs: Vital Signs Temp Pulse Pulse Resp BP BP Pulse Ox 02/28/19 00:37 98.1 F 97 H 18 113/70 96 02/27/19 21:09 98.4 F 93 H 18 123/79 98 02/27/19 17:00 98.1 F 108 H 24 106/77 98 02/27/19 12:00 98.3 F 92 H 92 H 24 97 02/27/19 11:41 107 H 27 H 116/66 02/27/19 11:30 99 H 21 116/66 02/27/19 11:21 104 H 22 104/64 02/27/19 11:11 101 H 25 H 104/64 02/27/19 11:00 105 H 33 H 104/64 02/27/19 10:01 103 H 29 H 103/62 Intake and Output 02/27/19 02/28/19 02/28/19 23:59 07:59 15:59 Intake Total 992.5 100 Output Total 400 Balance 592.5 100 Intake: IV 992.5 100 NaCl 0.9% 1000 ml 1,000 992.5 ml @ 150 mls/hr IV DIRECT MANGO Rx#:[id number] ZOSYN/NS 4.5GM/100ML 4.5 100 gm In 100 ml @ 200 mls/hr IV Q8H MANGO Rx#:[id number] Output: Urine 400 Indwelling Catheter 400 Other: Total, Output Amount 400 - Exam Breasts: Present: deferred Lungs: Present: Normal air movement Abdomen: Present: normal appearance, soft Uterus: Present: normal, firm, fundal height below umbilicus Extremities: Present: normal Incision: Present: normal, dry, intact - Labs Labs: Abnormal lab results 1102/28/19 02/28/19 Range/Units 10:28 01:07 04:56 WBC 12.8 H (4.5-11.0) K/mm3 RBC 3.33 L (3.65-5.03) M/mm3 Hgb 9.6 L (10.1-14.3) gm/dl Hct 28.4 L (30.3-42.9) % RDW 16.2 H (13.2-15.2) % Potassium 3.2 L (3.6-5.0) mmol/L Chloride 114.1 H (98-107) mmol/L Carbon Dioxide 17 L (22-30) mmol/L Creatinine 0.6 L (0.7-1.2) mg/dL Calcium 7.8 L (8.4-10.2) mg/dL
--- NOTE | 2019-02-28 09:11 | Discharge Summary ---
Providers - Providers Date of Admission: 02/23/19 23:33 Date of discharge: 02/28/19 Attending physician: ABDIAS EUCEDA 02/24/19 21:00 Consult to Physician [CONS] Urgent Comment: Consulting Provider: SHELLEY LUNSFORD Physician Instructions: Reason For Exam: s/p for chorio now with hypothermia 02/25/19 06:46 Consult to Physician [CONS] Routine Comment: Consulting Provider: SILVIO RUIZ Physician Instructions: Reason For Exam: chorioamnionitis, hypotension 02/26/19 08:07 Consult to Physician [CONS] Urgent Comment: Consulting Provider: UCHE DE LEÓN Physician Instructions: Reason For Exam: pulmonary and critical care management Primary care physician: ABDIAS EUCEDA Hospitalization Reason for admission: rupture of membranes Delivery: Procedure: primary low transverse Incision: normal, dry, intact Other procedures: none complications: pelvic infection, transfusion, UTI Discharge diagnosis: delivery Hospital course: Pt arrived with leaking fluid and symptoms of chorioamnionitis at 33 weeks EGA. She underwent a primary section. She was transferred to ICU for sepsis. She received a blood transfusion and treatment for chorio. On POD2 she was transferred back to mother/baby and on POD3 she met discharge criteria. Condition at discharge: Good Disposition: DC-01 TO HOME OR SELFCARE Plan - Provider Discharge Summary Activity: routine, no sex for 6 weeks, no heavy lifting 4 weeks, no strenuous exercise Diet: routine Instructions: routine Additional instructions: [] Smoking cessation referral if applicable(refer to patient education folder for contact #) [] Refer to [facility] Booklet Call your doctor immediately for: * Fever > 100.5 * Heavy vaginal bleeding ( >1 pad per hour) * Severe persistent headache * Shortness of breath * Reddened, hot, painful area to leg or breast * Drainage or odor from incision. * Keep incision clean and dry at all times and follow doctor's instructions regarding bathing/showering - Follow up plan Follow up: LISA LERNER MD [Staff Physician] - 7 Days (Please call [facility] [employer] to schedule an appointment.)
--- NOTE | 2019-02-28 13:20 | Progress Note ---
Assessment and Plan Cultures: Blood culture 02/23/2019 no growth so far Blood culture 02/25/2019 - pending Blood culture 02/26/2019 - pending Urine culture 02/23/2019 10-100K mixed bacteria. Assessment: 18 y/o female with 33 weeks admitted on 02/23/2019 due to abdominal pain and vaginal clear discharge, as well as cough now with: 1) Sepsis: present on admission with tachycardia, fever, leukococytosis; likely due to UTI +/- choriamnionitis +/- ?r/o pneumonia/flu 2) S/p C section: for and maternal tachycardia and presumed chorioamnionitis on 02/24/2019 3) UTI: UA with 23 wbc trace LE. Urine culture 02/23/2019 10-100K mixed bacteria. 4) Chorioamnionitis: premature ROM. CT abd shows enlarged heterogenous uterus with scattered free air. 5) Recent gonorrhea: treated Recs: continue pip/tazo IV Flu negative check GC/chlamydia - pending s/p blood transfusion Continue azithromycin follow up blood cultures Monitor leukocytosis, if persistent may need CT to rule out abscess. Assuming leukocytosis resolved on discharge, ok to send with just azithromycin to complete a 5 day regimen (assuming not completed inpatient) Will follow. Thanks for consultation [facility] M: [phone] O: [phone] F: [phone] Subjective Date of service: 02/28/19 Principal diagnosis: chorio, csec, sepsis Interval history: Afebrile, with a slightly elevated white count. Objective - Exam Narrative Exam: Constitutional: Alert, cooperative. No acute distress Head, Ears, Nose: Normocephalic, atraumatic. External ears, nose normal Eyes: Conjunctivae/corneas clear. No icterus. No ptosis. Neck: Supple, no meningeal signs Oral: dentition fair, no thrush Cardiovascular: S1, S2 normal. Respiratory: Good air entry, clear to auscultation bilaterally GI: soft +csection wound with dressings Musculoskeletal: No pedal edema, no cyanosis. b/l leg wounds Skin: no rash Hem/Lymphatic: No palpable cervical or supraclavicular nodes. No lymphangitis Psych: Mood ok. Affect flat Neurological: Awake, alert, oriented. - Constitutional Vitals: Vital Signs Temp Pulse Resp BP Pulse Ox 97.5 F L 67 18 123/84 94 02/28/19 07:59 02/28/19 07:59 02/28/19 07:59 02/28/19 07:59 02/28/19 07:59 Temperature -Last 24 Hours Temperature 97.5 F Temperature 98.1 F Temperature 98.4 F Temperature 98.1 F - Labs CBC & Chem 7: 02/28/19 01:07 02/28/19 04:56 Labs: Abnormal lab results 02/28/19 02/28/19 Range/Units 01:07 04:56 Hgb 9.6 L (10.1-14.3) gm/dl Hct 28.4 L (30.3-42.9) % Potassium 3.2 L (3.6-5.0) mmol/L Chloride 114.1 H (98-107) mmol/L Carbon Dioxide 17 L (22-30) mmol/L Creatinine 0.6 L (0.7-1.2) mg/dL Calcium 7.8 L (8.4-10.2) mg/dL
[2019-02-28 13:40] VITALS: BP 125/77
[2019-02-28] MEDS ORDERED: MEASLES, MUMPS & RUBELLA 12,500 UNIT/0.5 ML VACCINE SUB-Q ONE (13:54)
--- NOTE | 2019-02-28 14:57 | Progress Note ---
Assessment and Plan Assessment and plan: 18 y/o female with 33 weeks admitted on 02/23/2019 due to abdominal pain and vaginal clear discharge. On admission, her temperature of 101.2, HR 140, 112/67. WBC 13.8. Creat 0.8. AST 99. UA with 23 wbc trace LE. Blood culture 02/23/2019 no growth so far. Urine culture 02/23/2019 10-100K mixed bacteria. She underwent urgent C section for and maternal tachycardia, Premature ROM and presumed chorioamnionitis on 02/24/2019. Since then noted hypotension and hypothermia. CT abd shows enlarged heterogenous uterus with scattered free air. Septic Shock with Hypothermia Sepsis Chorioamionitis Urinary tract infection Anemia, likely acute on chronic - s/p C -section Plan cont IV fluid for maintenance transfused 1 unit PRBC ID consulted, following patient stable to discharge home. History Interval history: Less abd pain No more fever Hospitalist Physical - Physical exam Narrative exam: Gen: Not in acute distress, lying in bed, obese HEENT: Normocephalic, atraumatic Neck: supple, no JVD Heart: S1 and S2 reg, no murmurs, rubs or gallop Lungs: Clear to auscultation bilaterally, Abd: soft, mild tender lower abd, wound, mild distended, normal BS, Ext: No edema, no clubbing, no cyanosis Neuro: Awake, alert, oriented X 3, moves all ext - Constitutional Vitals: Temp Pulse Resp BP Pulse Ox 97.4 F L 62 18 125/77 92 02/28/19 12:15 02/28/19 12:15 02/28/19 12:15 02/28/19 12:15 02/28/19 12:15 General appearance: Present: no acute distress, well-nourished Results - Labs CBC & Chem 7: 02/28/19 01:07 02/28/19 04:56 Labs: Laboratory Last Values WBC 12.8 K/mm3 (4.5-11.0) H 02/27/19 10:28 RBC 3.33 M/mm3 (3.65-5.03) L 02/27/19 10:28 Hgb 9.6 gm/dl (10.1-14.3) L 02/28/19 01:07 Hct 28.4 % (30.3-42.9) L 02/28/19 01:07 MCV 93 fl (79-97) 02/27/19 10:28 MCH 31 pg (28-32) 02/27/19 10:28 MCHC 33 % (30-34) 02/27/19 10:28 RDW 16.2 % (13.2-15.2) H 02/27/19 10:28 Plt Count 304 K/mm3 (140-440) 02/27/19 10:28 Lymph % (Auto) 5.7 % (13.4-35.0) L 02/25/19 05:04 Towns % (Auto) 5.9 % (0.0-7.3) 02/25/19 05:04 Eos % (Auto) 0.1 % (0.0-4.3) 02/25/19 05:04 Baso % (Auto) 0.1 % (0.0-1.8) 02/25/19 05:04 Lymph # 0.7 K/mm3 (1.2-5.4) L 02/25/19 05:04 Towns # 0.8 K/mm3 (0.0-0.8) 02/25/19 05:04 Eos # 0.0 K/mm3 (0.0-0.4) 02/25/19 05:04 Baso # 0.0 K/mm3 (0.0-0.1) 02/25/19 05:04 Add Manual Diff Complete 02/26/19 07:40 Total Counted 100 02/26/19 07:40 Seg Neutrophils % 88.2 % (40.0-70.0) H 02/25/19 05:04 Seg Neuts % (Manual) 83.0 % (40.0-70.0) H 02/26/19 07:40 Band Neutrophils % 1.0 % 02/26/19 07:40 Lymphocytes % (Manual) 14.0 % (13.4-35.0) 02/26/19 07:40 Reactive Lymphs % (Man) 0 % 02/26/19 07:40 Monocytes % (Manual) 0 % (0.0-7.3) 02/26/19 07:40 Eosinophils % (Manual) 0 % (0.0-4.3) 02/26/19 07:40 Basophils % (Manual) 0 % (0.0-1.8) 02/26/19 07:40 Metamyelocytes % 2.0 % 02/26/19 07:40 Myelocytes % 0 % 02/26/19 07:40 Promyelocytes % 0 % 02/26/19 07:40 Blast Cells % 0 % 02/26/19 07:40 Nucleated RBC % 1.0 % (0.0-0.9) H 02/26/19 07:40 Seg Neutrophils # 11.3 K/mm3 (1.8-7.7) H 02/25/19 05:04 Seg Neutrophils # Man 6.3 K/mm3 (1.8-7.7) 02/26/19 07:40 Band Neutrophils # 0.1 K/mm3 02/26/19 07:40 Lymphocytes # (Manual) 1.1 K/mm3 (1.2-5.4) L 02/26/19 07:40 Abs React Lymphs (Man) 0.0 K/mm3 02/26/19 07:40 Monocytes # (Manual) 0.0 K/mm3 (0.0-0.8) 02/26/19 07:40 Eosinophils # (Manual) 0.0 K/mm3 (0.0-0.4) 02/26/19 07:40 Basophils # (Manual) 0.0 K/mm3 (0.0-0.1) 02/26/19 07:40 Metamyelocytes # 0.2 K/mm3 02/26/19 07:40 Myelocytes # 0.0 K/mm3 02/26/19 07:40 Promyelocytes # 0.0 K/mm3 02/26/19 07:40 Blast Cells # 0.0 K/mm3 02/26/19 07:40 WBC Morphology Not Reportable 02/26/19 07:40 Hypersegmented Neuts Not Reportable 02/26/19 07:40 Hyposegmented Neuts Not Reportable 02/26/19 07:40 Hypogranular Neuts Not Reportable 02/26/19 07:40 Smudge Cells Not Reportable 02/26/19 07:40 Toxic Granulation Not Reportable 02/26/19 07:40 Toxic Vacuolation Not Reportable 02/26/19 07:40 Dohle Bodies Not Reportable 02/26/19 07:40 Pelger-Huet Anomaly Not Reportable 02/26/19 07:40 Barrera Rods Not Reportable 02/26/19 07:40 Platelet Estimate Consistent w auto 02/26/19 07:40 Clumped Platelets Not Reportable 02/26/19 07:40 Plt Clumps, EDTA Not Reportable 02/26/19 07:40 Large Platelets Rare 02/26/19 07:40 Giant Platelets Not Reportable 02/26/19 07:40 Platelet Satelliting Not Reportable 02/26/19 07:40 Plt Morphology Comment Not Reportable 02/26/19 07:40 RBC Morphology Not Reportable 02/26/19 07:40 Dimorphic RBCs Not Reportable 02/26/19 07:40 Polychromasia Not Reportable 02/26/19 07:40 Hypochromasia Not Reportable 02/26/19 07:40 Poikilocytosis Not Reportable 02/26/19 07:40 Anisocytosis Few 02/26/19 07:40 Microcytosis Not Reportable 02/26/19 07:40 Macrocytosis Not Reportable 02/26/19 07:40 Spherocytes Not Reportable 02/26/19 07:40 Pappenheimer Bodies Not Reportable 02/26/19 07:40 Sickle Cells Not Reportable 02/26/19 07:40 Target Cells Not Reportable 02/26/19 07:40 Tear Drop Cells Not Reportable 02/26/19 07:40 Ovalocytes Few 02/26/19 07:40 Stomatocytes Rare 02/23/19 23:05 Helmet Cells Not Reportable 02/26/19 07:40 Harper-Kuna Bodies Not Reportable 02/26/19 07:40 Thibodaux Rings Not Reportable 02/26/19 07:40 Jolanta Cells Not Reportable 02/26/19 07:40 Bite Cells Not Reportable 02/26/19 07:40 Crenated Cell Not Reportable 02/26/19 07:40 Elliptocytes Not Reportable 02/26/19 07:40 Acanthocytes (Spur) Not Reportable 02/26/19 07:40 Rouleaux Not Reportable 02/26/19 07:40 Hemoglobin C Crystals Not Reportable 02/26/19 07:40 Schistocytes Not Reportable 02/26/19 07:40 Malaria parasites Not Reportable 02/26/19 07:40 Alex Bodies Not Reportable 02/26/19 07:40 Hem Pathologist Commnt No 02/26/19 07:40 PT 12.3 Sec. (12.2-14.9) 02/25/19 05:04 INR 0.92 (0.87-1.13) 02/25/19 05:04 APTT 32.0 Sec. (24.2-36.6) 02/25/19 05:04 Sodium 142 mmol/L (137-145) 02/28/19 04:56 Potassium 3.2 mmol/L (3.6-5.0) L 02/28/19 04:56 Chloride 114.1 mmol/L (98-107) H 02/28/19 04:56 Carbon Dioxide 17 mmol/L (22-30) L 02/28/19 04:56 Anion Gap 14 mmol/L 02/28/19 04:56 BUN 8 mg/dL (7-17) 02/28/19 04:56 Creatinine 0.6 mg/dL (0.7-1.2) L 02/28/19 04:56 Estimated GFR > 60 ml/min 02/28/19 04:56 BUN/Creatinine Ratio 13 % 02/28/19 04:56 Glucose 83 mg/dL (65-100) 02/28/19 04:56 Calcium 7.8 mg/dL (8.4-10.2) L 02/28/19 04:56 Total Bilirubin 0.80 mg/dL (0.1-1.2) 02/26/19 07:40 AST 19 units/L (5-40) 02/26/19 07:40 ALT 6 units/L (7-56) L 02/26/19 07:40 Alkaline Phosphatase 66 units/L (35-129) 02/26/19 07:40 Total Protein 5.2 g/dL (6.3-8.2) L 02/26/19 07:40 Albumin 2.4 g/dL (3.9-5) L 02/26/19 07:40 Albumin/Globulin Ratio 0.9 % 02/26/19 07:40 Urine Color Nina (Yellow) 02/23/19 22:50 Urine Turbidity Slightly-cloudy (Clear) 02/23/19 22:50 Urine pH 6.0 (5.0-7.0) 02/23/19 22:50 Ur Specific [place] 1.020 (1.003-1.030) 02/23/19 22:50 Urine Protein >500 mg/dL (Negative) 02/23/19 22:50 Urine Glucose (UA) Neg mg/dL (Negative) 02/23/19 22:50 Urine Ketones 80 mg/dL (Negative) 02/23/19 22:50 Urine Blood Sm (Negative) 02/23/19 22:50 Urine Nitrite Neg (Negative) 02/23/19 22:50 Urine Bilirubin Neg (Negative) 02/23/19 22:50 Urine Urobilinogen 4.0 mg/dL (<2.0) 02/23/19 22:50 Ur Leukocyte Esterase Tr (Negative) 02/23/19 22:50 Urine WBC (Auto) 23.0 /HPF (0.0-6.0) H 02/23/19 22:50 Urine RBC (Auto) 8.0 /HPF (0.0-6.0) 02/23/19 22:50 U Epithel Cells (Auto) 6.0 /HPF (0-13.0) 02/23/19 22:50 Urine Bacteria (Auto) 1+ /HPF (Negative) 02/23/19 22:50 Urine Mucus Few /HPF 02/23/19 22:50 Influenza A (Rapid) Negative (Negative) 02/25/19 08:35 Influenza A (RT-PCR) Negative (Negative) 02/25/19 08:35 Influenza B (Rapid) Negative (Negative) 02/25/19 08:35 Influenza B (RT-PCR) Negative (Negative) 02/25/19 08:35 Blood Type O POSITIVE 02/24/19 01:00 Antibody Screen Negative 02/24/19 01:00 Crossmatch See Detail 02/24/19 01:00 Active Medications - Current Medications Current Medications: Generic Name Dose Route Start Last Admin Trade Name Freq PRN Reason Stop Dose Admin Acetaminophen 650 mg 02/26/19 09:30 02/28/19 03:07 Tylenol PO 650 mg Q4H MANGO Administration Acetaminophen 650 mg 02/27/19 13:54 02/28/19 08:56 Tylenol PO 650 mg Q4H PRN Administration Pain MILD(1-3)/Fever >100.5/DUVALL Acetaminophen/Hydrocodone Bitart 2 each 02/27/19 13:54 Trevor 5/325 PO Q6H PRN Pain, Moderate (4-6) Bisacodyl 10 mg 02/27/19 13:54 Dulcolax OH BID PRN Constipation Diphenhydramine HCl 25 mg 02/27/19 13:54 Benadryl PO Q6H PRN Itching Docusate Sodium 100 mg 02/27/19 22:00 02/27/19 23:55 Colace PO Not Given BID MANGO Ferrous Sulfate 325 mg 02/24/19 10:00 02/28/19 09:00 Feosol PO 325 mg QDAY MANGO Administration Piperacillin Sod/Tazobactam Sod 4.5 gm in 100 mls @ 200 mls/hr 02/25/19 03:00 02/28/19 08:53 Zosyn/Ns 4.5gm/100ml IV 200 mls/hr Q8H MANGO Administration Protocol Azithromycin 500 mg/ Sodium 250 mls @ 250 mls/hr 02/25/19 12:00 02/27/19 09:54 Chloride IV 250 mls/hr Q24HR MANGO Administration Protocol Sodium Chloride 1,000 mls @ 75 mls/hr 02/27/19 22:00 02/28/19 03:06 Nacl 0.9% 1000 Ml IV 75 mls/hr DIRECT MANGO Administration Ibuprofen 800 mg 02/24/19 08:28 02/26/19 05:22 Ibuprofen PO 800 mg Q6H PRN Administration Pain, Mild (1-3) Ibuprofen 600 mg 02/27/19 14:00 02/28/19 06:14 Ibuprofen PO 600 mg Q6H MANGO Administration Magnesium Hydroxide 30 ml 02/27/19 13:54 Milk Of Magnesia PO HS PRN Constipation Morphine Sulfate 2 mg 02/24/19 08:28 02/24/19 20:27 Morphine IV 2 mg Q4H PRN Administration Pain, Moderate (4-6) Multi-Ingredient Ointment 1 applic 02/24/19 08:28 Lansinoh TP PRN PRN dryness/cracking Multi-Ingredient Ointment 1 applic 02/27/19 13:54 Lansinoh TP PRN PRN Sore Nipples Multivitamins/Iron/Calcium 1 each 02/24/19 10:00 02/28/19 09:00 Vitamin PO 1 each QDAY MANGO Administration Naloxone HCl 0.1 mg 02/24/19 08:28 Naloxone IV Q2MIN PRN Res Rate </= 8 or 02 SAT < 92% Ondansetron HCl 4 mg 02/24/19 08:28 02/25/19 14:47 Zofran IV 4 mg Q8H PRN Administration Nausea And Vomiting Ondansetron HCl 4 mg 02/27/19 13:54 Zofran IV Q8H PRN Nausea And Vomiting Oxycodone/Acetaminophen 2 tab 02/24/19 08:28 02/25/19 23:30 Percocet 5/325 PO 2 tab Q4H PRN Administration Pain, Moderate (4-6) Oxycodone/Acetaminophen 2 tab 02/27/19 13:54 Percocet 5/325 PO Q6H PRN Pain, Moderate (4-6) Potassium Chloride 40 meq 02/28/19 09:00 K-Dur PO 02/28/19 15:01 Q6H MANGO Promethazine HCl 25 mg 02/27/19 13:54 Phenergan OH Q6H PRN Nausea And Vomiting Promethazine HCl 25 mg 02/27/19 13:54 Phenergan PO Q6H PRN Nausea And Vomiting Senna/Docusate Sodium 2 tab 02/27/19 14:00 Senokot S PO Q12H MANGO Simethicone 80 mg 02/24/19 08:28 Mylicon PO Q6H PRN Gas pain Sodium Chloride 10 ml 02/27/19 14:00 Sodium Chloride Flush Syringe 10 Ml IV 03/02/19 13:59 PRN NR Witch Veena/Glycerin 1 each 02/24/19 08:28 Tucks Pad TP PRN PRN Hemorrhoids/cleansing/soothing Witch Veena/Glycerin 1 each 02/27/19 13:54 Tucks Pad TP PRN PRN Hemorrhoid/cleansing/soothing Nutrition/Malnutrition Assess - Dietary Evaluation Nutrition/Malnutrition Findings: Nutrition Notes Start: 02/25/19 09:00 Freq: Status: Active Protocol: Document 02/25/19 09:00 LP (Rec: 02/25/19 09:02 LP [id number]) Nutrition Notes Initial or Follow up Brief Note Subjective/Other Information Error. Pt does not need to be seen today. Nutrition Intervention Revisit per MD consult or patient Sign Off request:
--- NOTE | 2019-02-28 16:06 | Event Note ---
pt notexamined chart reviewed From pulmonary standpoint pt ok for dc Antibx as per ID
== END 2019-02-28 17:25 | disposition home or self-care (01) | DRG 765 ==
LOC: ED 21:13 → EDSTATUS 22:11 → TRG 22:12 → APU 23:33 → OB 02-24 04:50 → IMCU 02-25 03:53 → OB 02-27 17:00
PROVIDERS: ADMIT Obstetrics & Gynecology; ATTEND Obstetrics & Gynecology
PROC: 3E0234Z Introduction of Serum, Toxoid and Vaccine into Muscle, Percutaneous Approach (ICD-10-PCS; 2019-02-23)
PROC: 10D00Z1 Extraction of Products of Conception, Low, Open Approach (ICD-10-PCS; principal; 2019-02-24)
PROC: 30233N1 Transfusion of Nonautologous Red Blood Cells into Peripheral Vein, Percutaneous Approach (ICD-10-PCS; 2019-02-26)
PROC: 3E0234Z Introduction of Serum, Toxoid and Vaccine into Muscle, Percutaneous Approach (ICD-10-PCS; 2019-02-28)
DX: O42.913 Preterm premature rupture of membranes, unspecified as to length of time between rupture and onset of labor, third trimester (principal); O60.14X0 Preterm labor third trimester with preterm delivery third trimester, not applicable or unspecified; O41.1230 Chorioamnionitis, third trimester, not applicable or unspecified; O75.3 Other infection during labor; A41.9 Sepsis, unspecified organism; R65.21 Severe sepsis with septic shock; O76 Abnormality in fetal heart rate and rhythm complicating labor and delivery; O23.43 Unspecified infection of urinary tract in pregnancy, third trimester; O99.214 Obesity complicating childbirth; O99.02 Anemia complicating childbirth; Z3A.33 33 weeks gestation of pregnancy; Z37.0 Single live birth; Z23 Encounter for immunization; Z82.49 Family history of ischemic heart disease and other diseases of the circulatory system; Z80.9 Family history of malignant neoplasm, unspecified; Z79.899 Other long term (current) drug therapy
CPT/HCPCS: 36415; 71045; 71046; 74176; 76815; 80048; 80053; 81001; 85007; 85014; 85018; 85025; 85027; 85610; 85730; 86850; 86900; 86901; 86920; 87040; 87086; 87400; 87591; 88307; 93005; 93010; 94760; G0378; 87502; A6250; J0290; J0456; J0702; J1200; J1580; J1885; J2270; J2405; J2543; J2590; J2765; J3490; J7030; J7040; J7050; J7120; J7121; P9016; P9045

== ENCOUNTER 2019-07-19 14:34 | Emergency (ER) | payer MEDICAID ==
[2019-07-19 14:52] VITALS: BP 130/90
[2019-07-19 15:39] LABS: Bilirubin,Urine NEG (Negative); Blood,Urine LG (Negative); Color,Urine Red (Yellow); Urobilinogen,Urine < 2.0 mg/dL (<2.0)
[2019-07-19 15:40] LABS: HCG Qualitative,Urine Negative (Negative); RBC,Urine > 182.0 /HPF (0.0-6.0)
[2019-07-19] MEDS ORDERED: AZITHROMYCIN 250 MG TAB PO ONE (16:53)
[2019-07-19] MEDS ORDERED: LIDOCAINE-MPF (1%) 10 MG/1 ML VIAL 5 ML INFILTRATI ONE (16:53)
--- NOTE | 2019-07-19 17:14 | Emergency Department Report ---
ED Female HPI - General Chief complaint: Urogenital-Female Stated complaint: STD Time Seen by Provider: 07/19/19 15:01 Source: patient Mode of arrival: Ambulatory Limitations: No Limitations - History of Present Illness Initial comments: This is a 18-year-old female nontoxic, well nourished in appearance, no acute signs of distress presents to the ED with c/o of vaginal discharge and some pelvic pain. Patient stated that a her boyfriend has been diagnosed with chlamydia. Patient denies any vaginal pain or swelling. Patient denies any vaginal ulcers or lesions. Patient denies any nausea, vomiting, chest pain, shortness of breathe, fever, chills, headache, back pain, numbness, tingling, stiff neck. Patient denies any urinary symptoms. Patient denies any allergies or PMH. Patient stated she is currently on her menstrual cycle. MD Complaint: vaginal discharge, pelvic pain, possible STD -: days(s) Severity scale (0 -10): 0 Improves with: none Worsens with: none Are you Now?: No Associated Symptoms: vaginal discharge, other (pelvic pain). denies: vaginal bleeding, abdominal pain, nausea/vomiting, fever/chills, headaches, loss of appetite, dysuria, hematuria, rash, seizure, shortness of breath, syncope, weakness - Related Data Home Medications Medication Instructions Recorded Confirmed Last Taken Vit-Fe Fumar-FA [ 1 tab PO QDAY 04/27/18 02/24/19 04/25/18 Vitamin] Previous Rx's Medication Instructions Recorded Last Taken Type Ferrous Sulfate [Ferrous Sulfate 324 mg PO BID #60 tablet. 02/28/19 Unknown Rx 324 MG] Ibuprofen [Motrin] 600 mg PO Q6H PRN #60 tablet 02/28/19 Unknown Rx Sulfamethoxazole/Trimethoprim 1 each PO BID #14 tablet 07/19/19 Unknown Rx [Bactrim DS TAB] Allergies Allergy/AdvReac Type Severity Reaction Status Date / Time No Known Allergies Allergy Verified 02/02/17 11:01 ED Review of Systems ROS: Stated complaint: STD Other details as noted in HPI Constitutional: denies: chills, fever Eyes: denies: eye pain, eye discharge, vision change ENT: denies: ear pain, throat pain Respiratory: denies: cough, shortness of breath, wheezing Cardiovascular: denies: chest pain, palpitations Endocrine: no symptoms reported Gastrointestinal: denies: abdominal pain, nausea, diarrhea Genitourinary: discharge. denies: urgency, dysuria, frequency, hematuria, abnormal menses, dyspareunia Musculoskeletal: denies: back pain, joint swelling, arthralgia Skin: denies: rash, lesions Neurological: denies: headache, weakness, paresthesias Psychiatric: denies: anxiety, depression Hematological/Lymphatic: denies: easy bleeding, easy bruising ED Past Medical Hx - Past Medical History Previous Medical History?: Yes Hx Hypertension: No Hx Congestive Heart Failure: No Hx Diabetes: No Hx Deep Vein Thrombosis: No Hx GERD: Yes Hx Renal Disease: No Hx Sickle Cell Disease: No Hx Seizures: No Hx Asthma: No Hx COPD: No Hx HIV: No - Surgical History Past Surgical History?: Yes Additional Surgical History: right wrist surgery - Social History Smoking Status: Never Smoker Substance Use Type: None - Medications Home Medications: Home Medications Medication Instructions Recorded Confirmed Last Taken Type Vit-Fe Fumar-FA [ 1 tab PO QDAY 04/27/18 02/24/19 04/25/18 History Vitamin] Ferrous Sulfate [Ferrous Sulfate 324 mg PO BID #60 tablet. 02/28/19 Unknown Rx 324 MG] Ibuprofen [Motrin] 600 mg PO Q6H PRN #60 tablet 02/28/19 Unknown Rx Sulfamethoxazole/Trimethoprim 1 each PO BID #14 tablet 07/19/19 Unknown Rx [Bactrim DS TAB] ED Physical Exam - General Limitations: No Limitations General appearance: alert, in no apparent distress - Head Head exam: Present: atraumatic, normocephalic - Eye Eye exam: Present: normal appearance - Neck Neck exam: Present: normal inspection, full ROM. Absent: tenderness, meningismus, lymphadenopathy - GI/Abdominal GI/Abdominal exam: Present: soft, normal bowel sounds. Absent: distended, tenderness, guarding, rebound, rigid, diminished bowel sounds - External exam: Present: normal external exam, other ([employer] Operator Jessica NATION present during exam). Absent: erythema, swelling, lesions, lacerations, ecchymosis, bleeding Speculum exam: Present: cervical discharge, vaginal bleeding, other (Gigi Lopez RN present during exam). Absent: erythema, vaginal discharge, foreign body, tissue, laceration Bi-manual exam: Present: cervical motion tendernes. Absent: adnexal tenderness, adnexal mass, uterine enlargement, uterine tenderness - Extremities Exam Extremities exam: Present: normal inspection, full ROM, normal capillary refill. Absent: tenderness - Back Exam Back exam: Present: normal inspection, full ROM. Absent: tenderness, CVA tenderness (R), CVA tenderness (L), muscle spasm, paraspinal tenderness, vertebral tenderness, rash noted - Neurological Exam Neurological exam: Present: alert, oriented X3, normal gait - Psychiatric Psychiatric exam: Present: normal affect, normal mood - Skin Skin exam: Present: warm, dry, intact, normal color. Absent: rash ED Course Vital Signs 07/19/19 14:49 Temperature 97.9 F Pulse Rate 97 H Respiratory 18 Rate Blood Pressure 130/90 O2 Sat by Pulse 99 Oximetry - Reevaluation(s) Reevaluation #1: 07/19/19 17:14 Patient is speaking in full sentences with no signs of distress noted. ED Medical Decision Making - Medical Decision Making This is a 18-year-old female that presents with cervical motion tenderness, UTI and possible STD. Patient is stable was examined by me. There is no abdominal tenderness. No pelvic pain. UA obtained. Wet prep obtained. Gonorrhea chlamydia swab pending. Patient was instructed to return in 2 days for GC results. Patient wanted empirical treatment so patient received 250mg Rocephin and 1 g of azithromycin by mouth. Patient was instructed to Follow-up with a primary care doctor in 3-5 days or if symptoms worsen and continue return to emergency room as soon as possible. At time of discharge, the patient does not seem toxic or ill in appearance. No acute signs of distress noted. Patient agrees to discharge treatment plan of care. No further questions noted by the patient. Critical care attestation.: If time is entered above; I have spent that time in minutes in the direct care of this critically ill patient, excluding procedure time. ED Disposition Clinical Impression: Cervical motion tenderness, Possible exposure to STD UTI (urinary tract infection) Qualifiers: Urinary tract infection type: acute cystitis Hematuria presence: without hematuria Qualified Code(s): N30.00 - Acute cystitis without hematuria Disposition: TO HOME OR SELFCARE Is pt being admited?: No Does the pt Need Aspirin: No Condition: Stable Instructions: Safe Sex (ED), Urinary Tract Infection in Women (ED) Additional Instructions: Follow-up with a primary care doctor in 3-5 days or if symptoms worsen and continue return to emergency room as soon as possible. Return in 3-5 business days for gonorrhea chlamydia results. Prescriptions: Sulfamethoxazole/Trimethoprim [Bactrim DS TAB] 1 each PO BID #14 tablet Referrals: STEPHY WILDE MD [Primary Care Provider] - 3-5 Days PRIMARY [facility]ARE, [Referring] - 3-5 Days MAY NAVARRETE MD [Staff Physician] - 3-5 Days [facility] [Provider Group] - 3-5 Days Forms: Work/School Release Form(ED)
== END 2019-07-19 17:53 | disposition home or self-care (01) ==
LOC: ED 14:34
DX: N39.0 Urinary tract infection, site not specified (principal); K21.9 Gastro-esophageal reflux disease without esophagitis; Z98.890 Other specified postprocedural states; Z79.899 Other long term (current) drug therapy
CPT/HCPCS: 81001; 81025; 87086; 87210; 87591; 96372; 99284; J0696

== ENCOUNTER 2020-01-09 11:37 | Inpatient (IN) | payer MEDICAID ==
[2020-01-09] MEDS ORDERED: MAGNESIUM HYDROXIDE (MOM) ORAL LIQD UDC PO PRN (15:14)
[2020-01-09] MEDS ORDERED: ACETAMINOPHEN 325 MG TAB PO PRN (15:14)
[2020-01-09] MEDS ORDERED: ONDANSETRON 4 MG/2 ML INJ IV PRN (15:14)
[2020-01-09] MEDS ORDERED: DOCUSATE SODIUM 100 MG CAP PO PRN (15:14)
--- NOTE | 2020-01-09 15:14 | History and Physical Report ---
History of Present Illness Date of examination: 01/09/20 Date of admission: 01/09/20 11:37 Chief complaint: leakage of fluid History of present illness: 19y/o @ 24+1 weeks presents with the complaint of leakage of fluid. She denies any precipitating event. The patient has a history of a prior delivery with PPROM @ 33 weeks. She initiated care in the first trimester. Denies any recent fever or chills. Past History Past Medical History: no pertinent history Past Surgical History: section Social history: single - Obstetrical History Expected Date of Delivery: 04/29/20 Actual Gestation: 24 Week(s) 1 Day(s) : 3 Para: 2 Hx # Term Pregnancies: 1 (infant ) Number of Pregnancies: 1 Spontaneous Abortions: 0 Induced : 0 Number of Living Children: 1 Medications and Allergies Allergies Allergy/AdvReac Type Severity Reaction Status Date / Time No Known Allergies Allergy Verified 02/02/17 11:01 Home Medications Medication Instructions Recorded Confirmed Last Taken Type Vit-Fe Fumar-FA [ 1 tab PO QDAY 04/27/18 01/09/20 01/09/20 06:00 History Vitamin] Review of Systems All systems: negative Genitourinary: leakage of fluid - Vital Signs Vital signs: Vital Signs Pulse BP 101 H 108/62 01/09/20 12:21 01/09/20 12:21 Temp Pulse Resp BP Pulse Ox 98.1 F 103 H 16 102/66 01/09/20 13:47 01/09/20 13:47 01/09/20 13:47 01/09/20 13:47 - Physical Exam Breasts: Positive: deferred Cardiovascular: Regular rate Lungs: Positive: Clear to auscultation Abdomen: Positive: normal appearance Results All other labs normal. Assessment and Plan - Patient Problems (1) premature rupture of membranes (PPROM) with unknown onset of labor Current Visit: Yes Status: Acute Plan to address problem: admit for steroids, antibiotics, and magnesium therapy
[2020-01-09] MEDS ORDERED: MAGNESIUM SULFATE 4 GM/100 ML BAG IV ONE (15:19)
[2020-01-09] MEDS ORDERED: LACTATED RINGERS 1,000 ML ONE ×2 (15:42→15:47)
[2020-01-09] MEDS: PRENATAL VIT27-FE FUMARATE-FOLIC ACID VIT TAB PO SCH (15:56)
[2020-01-09] MEDS: BETAMET ACET/BETAMET NA PH 6 MG/ML INJ 5 ML MDV IM SCH (15:58)
[2020-01-09] MEDS ORDERED: ERYTHROMYCIN BASE 250 MG CAPSULE DR PO SCH (16:00)
[2020-01-09] MEDS ORDERED: AMOXICILLIN 250 MG CAP PO SCH (16:00)
[2020-01-09] MEDS: MAGNESIUM SULFATE 40GM/1000ML 40 GM/1,000 ML BAG IV SCH (16:23)
[2020-01-09 17:09] LABS: Basophils # (Auto) 0.1 K/mm3 (0.0-0.1); Basophils % (Auto) 0.4 % (0.0-1.8); Eosinophils # (Auto) 0.1 K/mm3 (0.0-0.4); Eosinophils % (Auto) 0.9 % (0.0-4.3); Hematocrit 27.2 % (30.3-42.9); Hemoglobin 9.3 gm/dl (10.1-14.3); Lymphocytes # (Auto) 1.8 K/mm3 (1.2-5.4); Lymphocytes % (Auto) 12.3 % (13.4-35.0); Mean Corpuscular HGB Conc 34 % (30-34); Mean Corpuscular Volume 94 fl (79-97); Monocytes # (Auto) 0.6 K/mm3 (0.0-0.8); Monocytes % (Auto) 3.7 % (0.0-7.3); Platelet Count 323 K/mm3 (140-440); Red Blood Count 2.89 M/mm3 (3.65-5.03); Red Cell Distribution Width 13.5 % (13.2-15.2)
[2020-01-09] MEDS: AMPICILLIN/NS 2 GM/100 ML 2 GM/100 ML BAG IV SCH ×2 (18:24→23:34)
[2020-01-09] MEDS: ERYTHROMYCIN LACTOBIONATE 250 MG in SODIUM CHLORIDE 0.9% 100 ML IV SCH (20:10)
--- NOTE | 2020-01-10 01:27 | Ultrasound Report ---
US OB follow up INDICATION / CLINICAL INFORMATION: pprom. COMPARISON: 09/05/2019 FINDINGS: Single, viable intrauterine in cephalic presentation. heart rate 148. Placenta is posterior and fundal, free of the cervical os. Amniotic fluid volume is lower limits of n ormal, with a fluid index of 8 cm. Biparietal diameter 6.3 cm, 25 weeks 3 days. Head circumference 22.9 cm, 24 weeks 6 days. Abdominal circumference 18.1 cm, 23 weeks 0 days. Femur length 4.3 cm 24 weeks 2 days. Estimated body weight 624 g. IMPRESSION: 1. Single, 24 week 3 day intrauterine . 2. Amniotic fluid volume is lower limits of normal. Signer Name: Nirav Kumar MD Signed: 01/10/2020 1:22 AM Workstation Name: [id number]
[2020-01-10] MEDS: ERYTHROMYCIN LACTOBIONATE 250 MG in SODIUM CHLORIDE 0.9% 100 ML IV SCH ×4 (01:35→22:58)
[2020-01-10] MEDS: AMPICILLIN/NS 2 GM/100 ML 2 GM/100 ML BAG IV SCH ×3 (06:02→21:55)
[2020-01-10] MEDS: PRENATAL VIT27-FE FUMARATE-FOLIC ACID VIT TAB PO SCH (10:30)
[2020-01-10] MEDS: MAGNESIUM SULFATE 40GM/1000ML 40 GM/1,000 ML BAG IV SCH (12:24)
[2020-01-10] MEDS ORDERED: BETAMET ACET/BETAMET NA PH 6 MG/ML INJ 5 ML MDV IM ONE (16:16)
[2020-01-10] MEDS: BETAMET ACET/BETAMET NA PH 6 MG/ML INJ 5 ML MDV IM SCH (16:19)
--- NOTE | 2020-01-10 18:43 | Progress Note ---
Assessment and Plan - Patient Problems (1) premature rupture of membranes (PPROM) with unknown onset of labor Current Visit: Yes Status: Acute Plan to address problem: patient remains clinically stable Subjective - Subjective Date of service: 01/10/20 Interval history: 19y/o @ 24+2 weeks presents with the complaint of leakage of fluid. The patient is without any significant complaints. Patient is completing her steroid treatment and magnesium therapy today. Denies any vaginal bleeding. Remains afebrile. Patient reports: no new complaints Objective - Vital Signs Vital Signs: Vital Signs - 12hr 01/10/20 01/10/20 01/10/20 07:01 07:32 08:32 Temperature Pulse Rate 99 H 100 H 99 H Respiratory Rate Blood Pressure 117/78 104/55 117/72 Blood Pressure [Left] O2 Sat by Pulse Oximetry 01/10/20 01/10/20 01/10/20 09:02 09:04 09:05 Temperature 97.8 F Pulse Rate 103 H 102 H 102 H Respiratory 17 Rate Blood Pressure 114/71 115/71 Blood Pressure 115/71 [Left] O2 Sat by Pulse Oximetry 01/10/20 01/10/20 01/10/20 09:31 09:50 10:01 Temperature Pulse Rate 102 H 99 H 96 H Respiratory Rate Blood Pressure 123/68 117/72 120/73 Blood Pressure [Left] O2 Sat by Pulse Oximetry 01/10/20 01/10/20 01/10/20 10:31 11:01 11:05 Temperature 98.9 F Pulse Rate 105 H 98 H Respiratory Rate Blood Pressure 122/77 118/75 Blood Pressure [Left] O2 Sat by Pulse Oximetry 01/10/20 01/10/20 01/10/20 11:31 12:02 12:15 Temperature Pulse Rate 101 H 100 H 100 H Respiratory Rate Blood Pressure 99/57 119/75 117/73 Blood Pressure [Left] O2 Sat by Pulse Oximetry 01/10/20 01/10/20 01/10/20 12:31 13:01 13:31 Temperature Pulse Rate 104 H 100 H 101 H Respiratory Rate Blood Pressure 98/55 94/51 118/76 Blood Pressure [Left] O2 Sat by Pulse Oximetry 01/10/20 01/10/20 01/10/20 14:01 14:31 15:01 Temperature Pulse Rate 96 H 99 H 97 H Respiratory Rate Blood Pressure 115/71 110/65 121/75 Blood Pressure [Left] O2 Sat by Pulse Oximetry 01/10/20 01/10/20 01/10/20 15:31 15:44 16:01 Temperature 97.9 F Pulse Rate 100 H 98 H Respiratory 20 Rate Blood Pressure 124/80 100/55 Blood Pressure 124/80 [Left] O2 Sat by Pulse Oximetry 01/10/20 01/10/20 01/10/20 16:12 16:31 16:52 Temperature 97.9 F Pulse Rate 100 H 105 H 107 H Respiratory 16 Rate Blood Pressure 114/73 118/70 Blood Pressure 114/73 [Left] O2 Sat by Pulse 98 Oximetry 01/10/20 01/10/20 01/10/20 16:57 17:01 17:02 Temperature Pulse Rate 105 H 102 H 104 H Respiratory Rate Blood Pressure 122/79 Blood Pressure [Left] O2 Sat by Pulse 97 97 Oximetry 01/10/20 01/10/20 01/10/20 17:07 17:12 17:17 Temperature Pulse Rate 105 H 106 H 117 H Respiratory Rate Blood Pressure Blood Pressure [Left] O2 Sat by Pulse 96 98 96 Oximetry 01/10/20 01/10/20 01/10/20 17:22 17:27 17:31 Temperature Pulse Rate 106 H 108 H 108 H Respiratory Rate Blood Pressure 129/83 Blood Pressure [Left] O2 Sat by Pulse 98 98 Oximetry 01/10/20 01/10/20 01/10/20 17:32 17:37 17:42 Temperature Pulse Rate 110 H 107 H 110 H Respiratory Rate Blood Pressure Blood Pressure [Left] O2 Sat by Pulse 99 98 99 Oximetry 01/10/20 01/10/20 01/10/20 17:47 17:52 17:57 Temperature Pulse Rate 107 H 104 H 104 H Respiratory Rate Blood Pressure Blood Pressure [Left] O2 Sat by Pulse 98 98 98 Oximetry 01/10/20 01/10/20 01/10/20 18:01 18:02 18:05 Temperature 97.9 F Pulse Rate 101 H 104 H Respiratory Rate Blood Pressure 112/63 Blood Pressure [Left] O2 Sat by Pulse 99 Oximetry 01/10/20 01/10/20 01/10/20 18:07 18:12 18:17 Temperature Pulse Rate 104 H 103 H 105 H Respiratory Rate Blood Pressure Blood Pressure [Left] O2 Sat by Pulse 98 98 98 Oximetry 01/10/20 01/10/20 01/10/20 18:22 18:27 18:31 Temperature Pulse Rate 105 H 106 H 103 H Respiratory Rate Blood Pressure 116/62 Blood Pressure [Left] O2 Sat by Pulse 97 96 Oximetry 01/10/20 18:32 Temperature Pulse Rate 106 H Respiratory Rate Blood Pressure Blood Pressure [Left] O2 Sat by Pulse 97 Oximetry - Labs Labs: Abnormal Labs 01/09/20 01/10/20 01/10/20 16:10 00:57 05:47 WBC 14.8 H RBC 2.89 L Hgb 9.3 L Hct 27.2 L Lymph % (Auto) 12.3 L Seg Neutrophils % 82.7 H Seg Neutrophils # 12.3 H Magnesium 5.20 H 6.00 H 01/10/20 13:24 WBC RBC Hgb Hct Lymph % (Auto) Seg Neutrophils % Seg Neutrophils # Magnesium 6.00 H Laboratory Results - last 24 hr 01/10/20 01/10/20 01/10/20 00:57 05:47 10:32 Magnesium 5.20 H 6.00 H Coronavirus (PCR) Negative 01/10/20 13:24 Magnesium 6.00 H Coronavirus (PCR)
[2020-01-11] MEDS: AMPICILLIN/NS 2 GM/100 ML 2 GM/100 ML BAG IV SCH ×2 (03:37→11:09)
[2020-01-11] MEDS: ERYTHROMYCIN LACTOBIONATE 250 MG in SODIUM CHLORIDE 0.9% 100 ML IV SCH (05:05)
[2020-01-11] MEDS ORDERED: LACTATED RINGERS 1,000 ML IV SCH (06:00)
--- NOTE | 2020-01-11 08:34 | Progress Note ---
Assessment and Plan A: IUP at 24w3d s/p 2 doses of betamethasone and magnesium sulfate for neuroprotection. Presently on latency antibiotics PPROM Prior x 1 Prior delivery at 33 wks secondary to PPROM, prolonged ROM GBS Unknown P: Continue current management Subjective - Subjective Date of service: 01/11/20 Principal diagnosis: PPROM at 24 wks, previous Interval history: Pt without complaints. She understands that she will remain hospitalized until delivery. Patient reports: loss of fluid, no new complaints, no vaginal bleeding, no contractions Objective - Vital Signs Vital Signs: Vital Signs - 12hr 01/10/20 01/10/20 01/10/20 20:37 20:42 20:47 Temperature Pulse Rate 98 H 101 H 99 H Respiratory Rate Blood Pressure Blood Pressure [Left] O2 Sat by Pulse 97 97 99 Oximetry 01/10/20 01/10/20 01/10/20 20:52 20:57 21:01 Temperature Pulse Rate 100 H 100 H 99 H Respiratory Rate Blood Pressure 108/65 Blood Pressure [Left] O2 Sat by Pulse 98 96 Oximetry 01/10/20 01/10/20 01/10/20 21:02 21:07 21:12 Temperature Pulse Rate 100 H 99 H 101 H Respiratory Rate Blood Pressure Blood Pressure [Left] O2 Sat by Pulse 96 96 96 Oximetry 01/10/20 01/10/20 01/10/20 21:17 21:22 21:27 Temperature Pulse Rate 100 H 100 H 101 H Respiratory Rate Blood Pressure Blood Pressure [Left] O2 Sat by Pulse 96 96 96 Oximetry 01/10/20 01/10/20 01/10/20 21:31 21:32 21:37 Temperature Pulse Rate 100 H 99 H 99 H Respiratory Rate Blood Pressure 106/63 Blood Pressure [Left] O2 Sat by Pulse 93 96 96 Oximetry 01/10/20 01/10/20 01/10/20 21:42 21:45 21:47 Temperature Pulse Rate 98 H 98 H 95 H Respiratory Rate Blood Pressure Blood Pressure [Left] O2 Sat by Pulse 96 94 98 Oximetry 01/10/20 01/10/20 01/10/20 21:52 21:57 22:01 Temperature Pulse Rate 96 H 95 H 95 H Respiratory Rate Blood Pressure 107/68 Blood Pressure [Left] O2 Sat by Pulse 97 97 Oximetry 01/10/20 01/10/20 01/10/20 22:02 22:07 22:12 Temperature Pulse Rate 97 H 92 H 98 H Respiratory Rate Blood Pressure Blood Pressure [Left] O2 Sat by Pulse 98 99 97 Oximetry 01/10/20 01/10/20 01/10/20 22:17 22:22 22:27 Temperature Pulse Rate 94 H 94 H 94 H Respiratory Rate Blood Pressure Blood Pressure [Left] O2 Sat by Pulse 97 98 98 Oximetry 01/10/20 01/10/20 01/10/20 22:31 22:32 22:36 Temperature 98.3 F Pulse Rate 101 H 94 H 96 H Respiratory 18 Rate Blood Pressure 108/66 Blood Pressure 108/66 [Left] O2 Sat by Pulse 100 99 Oximetry 01/10/20 01/10/20 01/10/20 22:37 22:39 22:42 Temperature Pulse Rate 95 H 93 H Respiratory Rate Blood Pressure Blood Pressure [Left] O2 Sat by Pulse 100 83 L 99 Oximetry 01/10/20 01/10/20 01/10/20 22:47 22:52 22:57 Temperature Pulse Rate 95 H 95 H 104 H Respiratory Rate Blood Pressure Blood Pressure [Left] O2 Sat by Pulse 99 98 97 Oximetry 01/10/20 01/10/20 01/10/20 23:02 23:07 23:12 Temperature Pulse Rate 92 H 95 H 99 H Respiratory Rate Blood Pressure Blood Pressure [Left] O2 Sat by Pulse 99 99 98 Oximetry 01/10/20 01/10/20 01/10/20 23:17 23:22 23:27 Temperature Pulse Rate 97 H 98 H 98 H Respiratory Rate Blood Pressure Blood Pressure [Left] O2 Sat by Pulse 96 96 96 Oximetry 01/10/20 01/10/20 01/10/20 23:31 23:32 23:37 Temperature Pulse Rate 96 H 98 H 99 H Respiratory Rate Blood Pressure 110/73 Blood Pressure [Left] O2 Sat by Pulse 97 96 Oximetry 01/10/20 01/10/20 01/10/20 23:42 23:47 23:52 Temperature Pulse Rate 99 H 99 H 98 H Respiratory Rate Blood Pressure Blood Pressure [Left] O2 Sat by Pulse 96 96 96 Oximetry 01/10/20 01/11/20 01/11/20 23:57 00:00 00:01 Temperature Pulse Rate 98 H 90 95 H Respiratory 18 Rate Blood Pressure 106/66 Blood Pressure 106/66 [Left] O2 Sat by Pulse 97 99 Oximetry 01/11/20 01/11/20 01/11/20 00:02 00:07 00:12 Temperature Pulse Rate 97 H 97 H 98 H Respiratory Rate Blood Pressure Blood Pressure [Left] O2 Sat by Pulse 97 96 96 Oximetry 01/11/20 01/11/20 01/11/20 00:17 00:22 00:27 Temperature Pulse Rate 101 H 94 H 92 H Respiratory Rate Blood Pressure Blood Pressure [Left] O2 Sat by Pulse 96 95 97 Oximetry 01/11/20 01/11/20 01/11/20 00:31 00:32 00:37 Temperature Pulse Rate 90 94 H 92 H Respiratory Rate Blood Pressure 108/63 Blood Pressure [Left] O2 Sat by Pulse 98 97 Oximetry 01/11/20 01/11/20 01/11/20 00:42 00:47 00:52 Temperature Pulse Rate 91 H 91 H 90 Respiratory Rate Blood Pressure Blood Pressure [Left] O2 Sat by Pulse 97 98 100 Oximetry 01/11/20 01/11/20 01/11/20 00:57 01:01 01:02 Temperature Pulse Rate 91 H 90 92 H Respiratory Rate Blood Pressure 108/67 Blood Pressure [Left] O2 Sat by Pulse 100 99 Oximetry 01/11/20 01/11/20 01/11/20 01:07 01:12 01:17 Temperature Pulse Rate 92 H 91 H 92 H Respiratory Rate Blood Pressure Blood Pressure [Left] O2 Sat by Pulse 99 98 99 Oximetry 01/11/20 01/11/20 01/11/20 01:22 01:27 01:31 Temperature Pulse Rate 92 H 92 H 90 Respiratory Rate Blood Pressure 101/66 Blood Pressure [Left] O2 Sat by Pulse 99 99 Oximetry 01/11/20 01/11/20 01/11/20 01:32 01:37 01:42 Temperature Pulse Rate 91 H 94 H 95 H Respiratory Rate Blood Pressure Blood Pressure [Left] O2 Sat by Pulse 98 98 99 Oximetry 01/11/20 01/11/20 01/11/20 01:47 01:52 01:57 Temperature Pulse Rate 89 90 92 H Respiratory Rate Blood Pressure Blood Pressure [Left] O2 Sat by Pulse 98 97 96 Oximetry 01/11/20 01/11/20 01/11/20 02:00 02:01 02:02 Temperature Pulse Rate 97 H 91 H 94 H Respiratory 18 Rate Blood Pressure 107/72 Blood Pressure 101/66 [Left] O2 Sat by Pulse 99 97 Oximetry 01/11/20 01/11/20 01/11/20 02:07 02:12 02:17 Temperature Pulse Rate 91 H 93 H 98 H Respiratory Rate Blood Pressure Blood Pressure [Left] O2 Sat by Pulse 98 97 95 Oximetry 01/11/20 01/11/20 01/11/20 02:22 02:27 02:30 Temperature Pulse Rate 92 H 91 H 93 H Respiratory Rate Blood Pressure Blood Pressure [Left] O2 Sat by Pulse 96 97 94 Oximetry 01/11/20 01/11/20 01/11/20 02:31 02:32 02:37 Temperature Pulse Rate 92 H 94 H 93 H Respiratory Rate Blood Pressure 114/73 Blood Pressure [Left] O2 Sat by Pulse 94 95 Oximetry 01/11/20 01/11/20 01/11/20 02:42 02:44 02:47 Temperature Pulse Rate 94 H 91 H 94 H Respiratory Rate Blood Pressure Blood Pressure [Left] O2 Sat by Pulse 95 94 95 Oximetry 01/11/20 01/11/20 01/11/20 02:50 02:52 02:57 Temperature Pulse Rate 93 H 91 H 94 H Respiratory Rate Blood Pressure Blood Pressure [Left] O2 Sat by Pulse 94 94 95 Oximetry 01/11/20 01/11/20 01/11/20 03:01 03:02 03:07 Temperature Pulse Rate 91 H 93 H 94 H Respiratory Rate Blood Pressure 108/68 Blood Pressure [Left] O2 Sat by Pulse 96 95 Oximetry 01/11/20 01/11/20 01/11/20 03:12 03:17 03:22 Temperature Pulse Rate 93 H 95 H 93 H Respiratory Rate Blood Pressure Blood Pressure [Left] O2 Sat by Pulse 95 95 95 Oximetry 01/11/20 01/11/20 01/11/20 03:27 03:31 03:32 Temperature Pulse Rate 93 H 93 H 93 H Respiratory Rate Blood Pressure 105/67 Blood Pressure [Left] O2 Sat by Pulse 95 96 Oximetry 01/11/20 01/11/20 01/11/20 03:37 03:42 03:47 Temperature Pulse Rate 101 H 89 87 Respiratory Rate Blood Pressure Blood Pressure [Left] O2 Sat by Pulse 100 97 95 Oximetry 01/11/20 01/11/2001/10/20 03:50 03:52 03:57 Temperature Pulse Rate 99 H 88 89 Respiratory 18 Rate Blood Pressure Blood Pressure 105/67 [Left] O2 Sat by Pulse 99 98 100 Oximetry 01/11/20 01/11/20 01/11/20 04:01 04:02 04:07 Temperature Pulse Rate 85 88 89 Respiratory Rate Blood Pressure 104/66 Blood Pressure [Left] O2 Sat by Pulse 100 100 Oximetry 01/11/20 01/11/20 01/11/20 04:12 04:17 04:22 Temperature Pulse Rate 88 89 90 Respiratory Rate Blood Pressure Blood Pressure [Left] O2 Sat by Pulse 99 99 98 Oximetry 01/11/20 01/11/20 01/11/20 04:27 04:31 04:32 Temperature Pulse Rate 87 88 90 Respiratory Rate Blood Pressure 100/65 Blood Pressure [Left] O2 Sat by Pulse 97 100 Oximetry 01/11/20 01/11/20 01/11/20 04:37 04:42 04:47 Temperature Pulse Rate 86 89 90 Respiratory Rate Blood Pressure Blood Pressure [Left] O2 Sat by Pulse 100 99 99 Oximetry 01/11/20 01/11/20 01/11/20 04:52 04:57 05:01 Temperature Pulse Rate 89 90 87 Respiratory Rate Blood Pressure 102/62 Blood Pressure [Left] O2 Sat by Pulse 99 98 Oximetry 01/11/20 01/11/20 01/11/20 05:02 05:07 05:12 Temperature Pulse Rate 90 93 H 88 Respiratory Rate Blood Pressure Blood Pressure [Left] O2 Sat by Pulse 99 100 100 Oximetry 01/11/20 01/11/20 01/11/20 05:17 05:22 05:27 Temperature Pulse Rate 89 89 90 Respiratory Rate Blood Pressure Blood Pressure [Left] O2 Sat by Pulse 100 100 100 Oximetry 01/11/20 01/11/20 01/11/20 05:31 05:32 05:33 Temperature Pulse Rate 89 91 H 93 H Respiratory Rate Blood Pressure 104/65 Blood Pressure [Left] O2 Sat by Pulse 92 99 Oximetry 01/11/20 01/11/20 01/11/20 05:37 05:42 05:47 Temperature Pulse Rate 90 92 H 96 H Respiratory Rate Blood Pressure Blood Pressure [Left] O2 Sat by Pulse 100 100 100 Oximetry 01/11/20 01/11/20 01/11/20 05:52 05:57 06:02 Temperature Pulse Rate 93 H 94 H 92 H Respiratory Rate Blood Pressure 102/70 Blood Pressure [Left] O2 Sat by Pulse 100 100 100 Oximetry 01/11/20 01/11/20 01/11/20 06:07 06:12 06:17 Temperature Pulse Rate 98 H 99 H 97 H Respiratory Rate Blood Pressure Blood Pressure [Left] O2 Sat by Pulse 100 100 100 Oximetry 01/11/20 01/11/20 01/11/20 06:22 06:27 06:29 Temperature 98.5 F Pulse Rate 100 H 97 H 98 H Respiratory 18 Rate Blood Pressure Blood Pressure 102/70 [Left] O2 Sat by Pulse 99 99 99 Oximetry 01/11/20 01/11/20 01/11/20 06:31 06:32 06:37 Temperature Pulse Rate 100 H 99 H 107 H Respiratory Rate Blood Pressure 130/74 Blood Pressure [Left] O2 Sat by Pulse 100 98 Oximetry 01/11/20 01/11/20 01/11/20 06:42 06:47 06:52 Temperature Pulse Rate 100 H 101 H 100 H Respiratory Rate Blood Pressure Blood Pressure [Left] O2 Sat by Pulse 98 99 98 Oximetry 01/11/20 01/11/20 01/11/20 06:57 07:01 07:02 Temperature Pulse Rate 100 H 106 H 103 H Respiratory Rate Blood Pressure 126/75 Blood Pressure [Left] O2 Sat by Pulse 98 98 Oximetry 01/11/20 01/11/20 01/11/20 07:07 07:12 07:17 Temperature Pulse Rate 102 H 102 H 98 H Respiratory Rate Blood Pressure Blood Pressure [Left] O2 Sat by Pulse 97 96 96 Oximetry 01/11/20 01/11/20 01/11/20 07:22 07:27 07:32 Temperature Pulse Rate 98 H 94 H 97 H Respiratory Rate Blood Pressure 99/63 Blood Pressure [Left] O2 Sat by Pulse 97 98 97 Oximetry 01/11/20 01/11/20 01/11/20 07:37 07:42 07:47 Temperature Pulse Rate 98 H 100 H 100 H Respiratory Rate Blood Pressure Blood Pressure [Left] O2 Sat by Pulse 97 97 98 Oximetry 01/11/20 01/11/20 01/11/20 07:52 07:57 08:01 Temperature Pulse Rate 99 H 101 H 99 H Respiratory Rate Blood Pressure 119/64 Blood Pressure [Left] O2 Sat by Pulse 96 96 Oximetry 01/11/20 01/11/20 01/11/20 08:02 08:07 08:12 Temperature Pulse Rate 101 H 97 H 95 H Respiratory Rate Blood Pressure Blood Pressure [Left] O2 Sat by Pulse 98 98 98 Oximetry 01/11/20 01/11/20 01/11/20 08:17 08:22 08:27 Temperature Pulse Rate 96 H 94 H 94 H Respiratory Rate Blood Pressure Blood Pressure [Left] O2 Sat by Pulse 97 98 98 Oximetry 01/11/20 08:31 Temperature Pulse Rate 96 H Respiratory Rate Blood Pressure 111/71 Blood Pressure [Left] O2 Sat by Pulse Oximetry - Exam Breasts: deferred Abdomen: Present: soft (gravid ) Uterus: Present: normal (gravid ) FHR: auscultation normal Uterine Contraction Monitor Mode: External Uterine Contraction Pattern: Absent Uterine Tone Measurement Phase: Resting - Labs Labs: Abnormal Labs 01/09/20 01/10/20 01/10/20 16:10 00:57 05:47 WBC 14.8 H RBC 2.89 L Hgb 9.3 L Hct 27.2 L Lymph % (Auto) 12.3 L Seg Neutrophils % 82.7 H Seg Neutrophils # 12.3 H Magnesium 5.20 H 6.00 H 01/10/20 01/10/20 01/11/20 13:24 20:10 00:55 WBC RBC Hgb Hct Lymph % (Auto) Seg Neutrophils % Seg Neutrophils # Magnesium 6.00 H 6.00 H 6.60 H 01/11/20 05:40 WBC RBC Hgb Hct Lymph % (Auto) Seg Neutrophils % Seg Neutrophils # Magnesium 6.40 H Laboratory Results - last 24 hr 01/10/20 01/10/20 01/10/20 10:32 13:24 20:10 Magnesium 6.00 H 6.00 H Coronavirus (PCR) Negative 01/11/20 01/11/20 00:55 05:40 Magnesium 6.60 H 6.40 H Coronavirus (PCR)
[2020-01-11] MEDS: PRENATAL VIT27-FE FUMARATE-FOLIC ACID VIT TAB PO SCH (11:15)
[2020-01-11] MEDS ORDERED: AMOXICILLIN 250 MG CAP PO SCH (18:00)
[2020-01-11] MEDS ORDERED: ERYTHROMYCIN ETHYLSUCC SUSP 400 MG/10 ML ORAL LIQD PO SCH (18:00)
[2020-01-11] MEDS ORDERED: ERYTHROMYCIN BASE 250 MG CAPSULE DR PO SCH (18:00)
[2020-01-11] MEDS ORDERED: AMOXICILLIN 250 MG/10 ML ORAL SYRINGE PO SCH (18:00)
[2020-01-11] MEDS ORDERED: OXYTOCIN DRIP 30,000 MILLIUNITS/500 ML BAG IV ONE (21:50)
--- NOTE | 2020-01-12 00:10 | Procedure Note ---
OB Delivery Note - Delivery Date of Delivery: 01/11/20 Surgeon: NORRIS THOMAS Estimated blood loss: 200cc - Vaginal Delivery presentation: vertex Delivery position: OA Intrapartum events: labor-<37 weeks, PROM->1hr before delivery, precipitous labor- <3hr Delivery induction: none Delivery monitor: external FHT, external uterine Route of delivery: Delivery placenta: spontaneous Delivery cord: 3 umbilical vessels Episiotomy: none Delivery laceration: none Delivery comments: Per nursing staff, pt was using commode and complained of bleeding. When she got back in the bed the head was and she delivered precipitously over an intact perienuem. NICU was called immediately and came to assess baby. Placenta was delivered spontaneously and intact with 3vc. No lacerations. pt tolerated procedure well, - Infant A at 1 minute: 5 at 5 minutes: 8 Infant Gender: Female (1 pound 8 ounces)
[2020-01-12] MEDS ORDERED: ACETAMINOPHEN 325 MG TAB PO PRN (01:35)
[2020-01-12] MEDS ORDERED: diphenhydrAMINE 25 MG CAP PO PRN (01:35)
[2020-01-12] MEDS ORDERED: WITCH HAZEL/ GLYCERIN PAD TP PRN (01:35)
[2020-01-12] MEDS ORDERED: LANOLIN/ZINC/DIMETHICONE (LANSINOH) 7 GM TP PRN (01:35)
[2020-01-12] MEDS ORDERED: PROMETHAZINE 25 MG TAB PO PRN (01:35)
[2020-01-12] MEDS ORDERED: HYDROcodone/ACETAMINOPHEN 5-325 MG TAB PO PRN (01:35)
[2020-01-12] MEDS ORDERED: ONDANSETRON 4 MG/2 ML INJ IV PRN (01:35)
[2020-01-12] MEDS ORDERED: IBUPROFEN 600 MG TAB PO SCH (01:35)
[2020-01-12] MEDS ORDERED: MAGNESIUM HYDROXIDE (MOM) ORAL LIQD UDC PO PRN (01:35)
[2020-01-12] MEDS ORDERED: PROMETHAZINE 25 MG RECT SUPP PR PRN (01:35)
[2020-01-12] MEDS ORDERED: DOCUSATE SODIUM 100 MG/10 ML ORAL LIQD PO SCH (01:50)
[2020-01-12] MEDS ORDERED: DOCUSATE SODIUM 100 MG CAP PO SCH (10:00)
[2020-01-12] MEDS ORDERED: PRENATAL VIT27-FE FUMARATE-FOLIC ACID VIT TAB PO SCH (10:00)
[2020-01-12 13:27] LABS: Hematocrit 26.6 % (30.3-42.9); Hemoglobin 9.2 gm/dl (10.1-14.3)
[2020-01-13] MEDS: IBUPROFEN ORAL LIQD 100 MG/5 ML ORAL.LIQD PO SCH ×2 (00:05→06:27)
--- NOTE | 2020-01-13 13:02 | Progress Note ---
Assessment and Plan PPD 2 s/p . Doing well. Pt to be discharged on today with follow up 6 weeks in office. Subjective - Subjective Principal diagnosis: PPROM at 24 wks, previous Interval history: Pt is PPD 2 s/p precipitous of infant at 24 weeks.Pt is doing well and has no complaints. Patient reports: appetite normal, voiding normally, pain well controlled, ambulating normally [place]: in NICU Objective - Vital Signs Latest vital signs: Vital Signs Temp Pulse Resp BP BP Pulse Ox 01/13/20 07:55 98 F 105 H 20 109/65 01/13/20 00:25 98.2 F 93 H 20 102/60 97 01/12/20 16:05 97.9 F 92 H 18 116/67 Intake and Output 01/12/20 01/13/20 01/13/20 22:59 06:59 14:59 Intake Total 320 320 Output Total 800 Balance -480 320 Intake: Oral 320 320 Output: Urine 800 Void 800 Other: Total, Intake Amount 320 320 Total, Output Amount 800 # Voids Void 3 1 - Exam Breasts: Present: deferred Cardiovascular: Present: Regular rate, Normal S1, Normal S2 Lungs: Present: Clear to auscultation, Normal air movement Abdomen: Present: normal appearance, soft Uterus: Present: normal, firm Extremities: Present: normal - Labs Labs: Abnormal lab results 01/12/20 Range/Units 12:47 Hgb 9.2 L (10.1-14.3) gm/dl Hct 26.6 L (30.3-42.9) %
--- NOTE | 2020-01-13 13:26 | Discharge Summary ---
Providers - Providers Date of Admission: 01/09/20 11:37 Date of discharge: 01/13/20 Attending physician: AARON CUMMINGS 01/12/20 10:35 Consult to Case Management [CONS] Routine Services Needed at Discharge: [employer] Notified:: no Comment:: social issues. Primary care physician: ABDIAS EUCEDA Hospitalization Reason for admission: labor, rupture of membranes Delivery: Episiotomy: none Other procedures: none Discharge diagnosis: IUP at term delivered baby: female Hospital course: unremarkable Condition at discharge: Good Disposition: DC-01 TO HOME OR SELFCARE Plan - Discharge Medications Prescriptions: Ferrous Sulfate [Feosol 325 MG tab] 325 mg PO BID #60 tablet Ibuprofen [Motrin] 800 mg PO Q8HR PRN #40 tablet PRN Reason: Pain, Mild (1-3) - Provider Discharge Summary Activity: routine, no sex for 6 weeks, no heavy lifting 4 weeks, no strenuous exercise Diet: routine Instructions: routine Additional instructions: [] Smoking cessation referral if applicable(refer to patient education folder for contact #) [] Refer to [facility] Booklet Call your doctor immediately for: * Fever > 100.5 * Heavy vaginal bleeding ( >1 pad per hour) * Severe persistent headache * Shortness of breath * Reddened, hot, painful area to leg or breast * Drainage or odor from incision. * Keep incision clean and dry at all times and follow doctor's instructions regarding bathing/showering - Follow up plan Follow up: ABDIAS EUCEDA MD [Primary Care Provider] - 14 Days
[2020-01-13 14:47] VITALS: BP 118/77
== END 2020-01-13 18:30 | disposition home or self-care (01) | DRG 775 ==
LOC: LD 11:37 → OB 01-12 02:04
PROVIDERS: ADMIT Obstetrics & Gynecology; ATTEND Obstetrics & Gynecology
PROC: 10E0XZZ Delivery of Products of Conception, External Approach (ICD-10-PCS; principal; 2020-01-11)
DX: O42.012 Preterm premature rupture of membranes, onset of labor within 24 hours of rupture, second trimester (principal); O62.3 Precipitate labor; Z20.828 Contact with and (suspected) exposure to other viral communicable diseases; Z37.0 Single live birth; Z3A.24 24 weeks gestation of pregnancy
CPT/HCPCS: 36415; 76816; 83735; 85014; 85018; 85025; 86850; 86900; 86901; 88307; G0378; J0290; J0702; J1364; J2590; J3475; J7120; U0003-CS

== ENCOUNTER 2020-04-26 13:14 | Emergency (ER) | payer MEDICAID ==
[2020-04-26 13:20] VITALS: BP 146/84
--- NOTE | 2020-04-26 14:28 | Emergency Department Report ---
ED Female HPI - General Chief complaint: Abdominal Pain Stated complaint: POSSIBLE Source: patient Mode of arrival: Ambulatory Limitations: No Limitations - History of Present Illness Initial comments: 19-year-old -Citizen Of [place] female presents to the emergency room for lower abdominal pain since yesterday. Patient denies any nausea vomiting diarrhea vaginal bleeding dysuria or vaginal discharge. Patient states that she did a home test yesterday and it came back positive. Patient reports that she she is 4 para 3 and last menstrual period was 03/26/2020. [facility] her [facility]. Complaint: pelvic pain Onset/Timin -: days(s) Severity scale (0 -10): 3 Quality: cramping Consistency: intermittent Improves with: none Worsens with: none Are you Now?: Yes Last Menstrual Period: 03/26/20 EDC: 12/31/20 Associated Symptoms: abdominal pain. denies: vaginal discharge, vaginal bleeding, nausea/vomiting, fever/chills - Related Data Sexually active: Yes : 4 Para: 3 Home Medications Medication Instructions Recorded Confirmed Last Taken Vit-Fe Fumar-FA [ 1 tab PO QDAY 04/27/18 01/09/20 01/09/20 06:00 Vitamin] Previous Rx's Medication Instructions Recorded Last Taken Type Ferrous Sulfate [Feosol 325 MG tab] 325 mg PO BID #60 tablet 01/13/20 Unknown Rx Ibuprofen [Motrin] 800 mg PO Q8HR PRN #40 tablet 01/13/20 Unknown Rx Vit-Fe Fumar-FA [ 1 tab PO QDAY #90 tablet 04/26/20 Unknown Rx Vitamin] Allergies Allergy/AdvReac Type Severity Reaction Status Date / Time No Known Allergies Allergy Verified 02/02/17 11:01 ED Review of Systems ROS: Stated complaint: POSSIBLE Other details as noted in HPI Comment: All other systems reviewed and negative ED Past Medical Hx - Past Medical History Previous Medical History?: No Hx Hypertension: No Hx Congestive Heart Failure: No Hx Diabetes: No Hx Deep Vein Thrombosis: No Hx GERD: Yes Hx Renal Disease: No Hx Sickle Cell Disease: No Hx Seizures: No Hx Asthma: No Hx COPD: No Hx HIV: No - Surgical History Past Surgical History?: Yes Additional Surgical History: right wrist surgery - Social History Smoking Status: Never Smoker Substance Use Type: None - Medications Home Medications: Home Medications Medication Instructions Recorded Confirmed Last Taken Type Vit-Fe Fumar-FA [ 1 tab PO QDAY 04/27/18 01/09/20 01/09/20 06 :00 History Vitamin] Ferrous Sulfate [Feosol 325 MG tab] 325 mg PO BID #60 tablet 01/13/20 Unknown Rx Ibuprofen [Motrin] 800 mg PO Q8HR PRN #40 tablet 01/13/20 Unknown Rx Vit-Fe Fumar-FA [ 1 tab PO QDAY #90 tablet 04/26/20 Unknown Rx Vitamin] ED Physical Exam - General Limitations: No Limitations General appearance: alert, in no apparent distress - Head Head exam: Present: atraumatic, normocephalic - Eye Eye exam: Present: normal appearance - ENT ENT exam: Present: mucous membranes moist - Neck Neck exam: Present: normal inspection - Respiratory Respiratory exam: Present: normal lung sounds bilaterally. Absent: respiratory distress - Cardiovascular Cardiovascular Exam: Present: regular rate, normal rhythm. Absent: systolic murmur, diastolic murmur, rubs, gallop - GI/Abdominal GI/Abdominal exam: Present: soft, normal bowel sounds - Extremities Exam Extremities exam: Present: normal inspection - Back Exam Back exam: Present: normal inspection - Neurological Exam Neurological exam: Present: alert, oriented X3 - Psychiatric Psychiatric exam: Present: normal affect, normal mood - Skin Skin exam: Present: warm, dry, intact, normal color. Absent: rash ED Course Vital Signs 04/26/20 13:17 Temperature 98.0 F Pulse Rate 105 H Respiratory 16 Rate Blood Pressure 146/84 O2 Sat by Pulse 100 Oximetry ED Medical Decision Making - Lab Data Result diagrams: 04/26/20 14:41 - Radiology Data Radiology results: report reviewed Patient: MEHNAZ LAWTON MR#: [id number] : 2000 Acct:[id number] Age/Sex: 19 / F ADM Date: 04/26/20 Loc: ED Attending Dr: Ordering Physician: BENNETT BARLOW Date of Service: 04/26/20 Procedure(s): US OB <= 14 wk fetus add gest Accession Number(s): [id number] cc: BENNETT BARLOW ULTRASOUND OBSTETRIC REASON FOR EXAM: Pelvic pain TECHNIQUE: Transabdominal and transvaginal ultrasound was performed to evaluate a first trimester . COMPARISON: 01/09/2020. FINDINGS: FINDINGS: There is a single intrauterine gestational sac with yolk sac. Mean sac diameter measures 6 mm, corresponding to gestational age 5 weeks and 2 days. No pole is identified. MATERNAL FINDINGS: The uterus measures 8.1 x 3.7 x 6.9 cm. The endometrial stripe measures 1.1 cm. The right ovary is not seen. Left ovary measures 5 x 3.1 x 2.3 cm, and contains a 2.6 cm cystic structure, likely reflecting corpus luteum. There is an additional adjacent 2.3 cm cystic structure, which may be part of the larger cystic structure. Cul-de-sac: There is no free fluid. IMPRESSION: Intrauterine of uncertain viability. Intrauterine gestational sac and yolk sac without discrete pole detected at this time. This may be related to early gestation. In a hemodynamically stable patient, recommend follow-up with pelvic ultrasound in 7-10 days. Probable left ovarian corpus luteum cyst. Signer Name: Kaity Coates MD Signed: 04/26/2020 5:08 PM Workstation Name: [id number] Transcribed By: HAILEY Dictated By: KAITY COATES MD Electronically Authenticated By: KAITY COATES MD Signed Date/Time: 04/26/201707 DD/ 01 TD/TT: - Medical Decision Making 19-year-old -Citizen Of [place] female presents to the emergency room for lower abdominal pain since yesterday. Patient denies any nausea vomiting diarrhea vaginal bleeding dysuria or vaginal discharge. Patient states that she did a home test yesterday and it came back positive. Patient reports that she she is 4 para 3 and last menstrual period was 03/26/2020. [facility] CHIMNEY REPAIRER will be her provider. Ultrasound shows intrauterine gestation about 5 weeks and 3 days with no pole. Patient is to return in 2 weeks to her CHIMNEY REPAIRER to have a repeat ultrasound. hCG was 6200. Patient can take Tylenol for any discomfort. Return back to the emergency room if he has any worsening cramps vaginal bleeding. Critical care attestation.: If time is entered above; I have spent that time in minutes in the direct care of this critically ill patient, excluding procedure time. ED Disposition Clinical Impression: Qualifiers: Weeks of gestation: less than 8 weeks Qualified Code(s): Z3A.01 - Less than 8 weeks gestation of Disposition: DC-01 TO HOME OR SELFCARE Is pt being admited?: No Does the pt Need Aspirin: No Condition: Stable Instructions: Abdominal Pain (ED) Additional Instructions: Ultrasound shows a gestational sac but no pole which means that she may be too early to have evaluated for a fetus. I recommend to have a repeat ultrasound in 2 weeks. This needs to be done by CHIMNEY REPAIRER provider. Return back to the emergency room if you have any vaginal bleeding with pelvic cramping. Urinalysis negative for any infection. Prescriptions: Vit-Fe Fumar-FA [ Vitamin] 1 tab PO QDAY #90 tablet Referrals: [facility] [Primary Care Provider] - 3-5 Days [facility] [Provider Group] - 3-5 Days [facility] [Provider Group] - 3-5 Days
[2020-04-26 15:07] LABS: Basophils % (Auto) 0.3 % (0.0-1.8); Eosinophils # (Auto) 0.1 K/mm3 (0.0-0.4); Hematocrit 33.8 % (30.3-42.9); Lymphocytes # (Auto) 1.6 K/mm3 (1.2-5.4); Lymphocytes % (Auto) 27.2 % (13.4-35.0); Mean Corpuscular HGB Conc 33 % (30-34); Mean Corpuscular Volume 80 fl (79-97); Monocytes # (Auto) 0.3 K/mm3 (0.0-0.8); Platelet Count 393 K/mm3 (140-440); Red Cell Distribution Width 19.4 % (13.2-15.2)
[2020-04-26 15:11] LABS: Bilirubin,Urine NEG (Negative); Blood,Urine NEG (Negative); Color,Urine Yellow (Yellow); Mucus,Urine 1+ /HPF; Urobilinogen,Urine < 2.0 mg/dL (<2.0)
--- NOTE | 2020-04-26 17:12 | Ultrasound Report ---
ULTRASOUND OBSTETRIC REASON FOR EXAM: Pelvic pain TECHNIQUE: Transabdominal and transvaginal ultrasound was performed to evaluate a first trimester pre gnancy. COMPARISON: 01/09/2020. FINDINGS: FINDINGS: There is a single intrauterine gestational sac with yolk sac. Mean sac diameter measures 6 mm, corres ponding to gestational age 5 weeks and 2 days. No pole is identified. MATERNAL FINDINGS: The uterus measures 8.1 x 3.7 x 6.9 cm. The endometrial stripe measures 1.1 cm. The right ovary is not seen. Left ovary measures 5 x 3.1 x 2.3 cm, and contains a 2.6 cm cystic structure, likely reflecting corpu s luteum. There is an additional adjacent 2.3 cm cystic structure, which may be part of the larger cy stic structure. Cul-de-sac: There is no free fluid. IMPRESSION: Intrauterine of uncertain viability. Intrauterine gestational sac and yolk sac without disc rete pole detected at this time. This may be related to early gestation. In a hemodynamically s table patient, recommend follow-up with pelvic ultrasound in 7-10 days. Probable left ovarian corpus luteum cyst. Signer Name: Lester Coates MD Signed: 04/26/2020 5:08 PM Workstation Name: [id number]
== END 2020-04-26 18:15 | disposition home or self-care (01) ==
LOC: ED 13:14
DX: O26.891 Other specified pregnancy related conditions, first trimester (principal); R10.2 Pelvic and perineal pain; Z3A.01 Less than 8 weeks gestation of pregnancy; K21.9 Gastro-esophageal reflux disease without esophagitis; Z98.890 Other specified postprocedural states; Z79.1 Long term (current) use of non-steroidal anti-inflammatories (NSAID); Z79.899 Other long term (current) drug therapy
CPT/HCPCS: 36415; 76801; 76802; 81001; 84702; 85025

== ENCOUNTER 2020-09-04 11:45 | Outpatient (CLI) | payer MEDICAID ==
[2020-09-04] MEDS ORDERED: LACTATED RINGERS 1,000 ML IV SCH (12:00)
[2020-09-04 12:58] VITALS: BP 130/64
[2020-09-04 13:11] LABS: Bacteria,Urine 1+ /HPF (Negative); Bilirubin,Urine NEG (Negative); Blood,Urine NEG (Negative); Color,Urine Yellow (Yellow); Mucus,Urine FEW /HPF
== END 2020-09-04 13:12 | disposition still patient (30) ==
LOC: TRG 11:45 → APU 11:47 → TRG 13:12
PROVIDERS: ATTEND Obstetrics & Gynecology
DX: O26.892 Other specified pregnancy related conditions, second trimester (principal); R51.9 Headache, unspecified; M79.605 Pain in left leg; Z3A.24 24 weeks gestation of pregnancy
CPT/HCPCS: 59025; 81001

== ENCOUNTER 2020-09-04 13:33 | Emergency (ER) | payer MEDICAID ==
[2020-09-04 18:45] VITALS: BP 126/78
--- NOTE | 2020-09-04 19:00 | Emergency Department Report ---
ED General Adult HPI - General Chief complaint: Extremity Problem,Nontraumatic Stated complaint: LEG PAIN Time Seen by Provider: 09/04/20 18:58 Source: patient Mode of arrival: Wheelchair Limitations: No Limitations - History of Present Illness Initial comments: 20-year-old female patient (24 weeks gestation) presents to the emergency department with complaints of nontraumatic left leg pain for approximately 1 week. Pain is localized to the thigh, slightly worse posteriorly. No family history of venous thromboembolism. No recent surgery. No recent travel. Patient has not used fertility drugs or supplemental hormones. Denies fever, chest pain, shortness of breath, palpitations, syncope, paresthesias, numbness, weakness. Denies all other complaints at this time. Severity scale (0 -10): 4 - Related Data Home Medications Medication Instructions Recorded Confirmed Last Taken Vit-Fe Fumar-FA [ 1 tab PO QDAY 04/27/18 01/09/20 01/09/20 06:00 Vitamin] Previous Rx's Medication Instructions Recorded Last Taken Type Ferrous Sulfate [Feosol 325 MG tab] 325 mg PO BID #60 tablet 01/13/20 Unknown Rx Ibuprofen [Motrin] 800 mg PO Q8HR PRN #40 tablet 01/13/20 Unknown Rx Vit-Fe Fumar-FA [ 1 tab PO QDAY #90 tablet 04/26/20 Unknown Rx Vitamin] Allergies Allergy/AdvReac Type Severity Reaction Status Date / Time No Known Allergies Allergy Verified 02/02/17 11:01 ED Review of Systems ROS: Stated complaint: LEG PAIN Other details as noted in HPI Other: GENERAL: Negative for fever, chills, weight change, anorexia, fatigue. ENT: Negative for ear pain, difficulty hearing, sore throat, nasal congestion, epistaxis. CARDIOVASCULAR: Negative for chest pain, palpitations, lower extremity swelling. PULMONARY: Negative for cough, dyspnea, wheezing, orthopnea, cyanosis. GASTROINTESTINAL: Negative for abdominal pain, nausea, vomiting, diarrhea, constipation. MUSCULOSKELETAL: Positive for left leg pain. NEUROLOGICAL: Negative for headache, seizure, syncope, paresthesias, weakness. INTEGUMENTARY: Negative for erythema, rash, diaphoresis, laceration, ecchymosis. HEMATOLOGICAL: Negative for hemoptysis, hematemesis, hematochezia, hematuria. PSYCHIATRIC: Negative for hallucinations, suicidal ideation, homicidal ideation, anxiety, depression. ED Past Medical Hx - Past Medical History Previous Medical History?: Yes Hx Hypertension: No Hx Congestive Heart Failure: No Hx Diabetes: No Hx Deep Vein Thrombosis: No Hx GERD: Yes Hx Renal Disease: No Hx Sickle Cell Disease: No Hx Seizures: No Hx Asthma: No Hx COPD: No Hx HIV: No - Surgical History Past Surgical History?: Yes Additional Surgical History: right wrist surgery - Social History Smoking Status: Never Smoker - Medications Home Medications: Home Medications Medication Instructions Recorded Confirmed Last Taken Type Vit-Fe Fumar-FA [ 1 tab PO QDAY 04/27/18 01/09/20 01/09/20 06:00 History Vitamin] Ferrous Sulfate [Feosol 325 MG tab] 325 mg PO BID #60 tablet 01/13/20 Unknown Rx Ibuprofen [Motrin] 800 mg PO Q8HR PRN #40 tablet 01/13/20 Unknown Rx Vit-Fe Fumar-FA [ 1 tab PO QDAY #90 tablet 04/26/20 Unknown Rx Vitamin] ED Physical Exam - General Limitations: No Limitations - Other Other exam information: General: Awake and alert. No acute distress. Head: Atraumatic, normocephalic. Eyes: EOMI. Pupils are equal and round. Normal sclera and conjunctiva. ENT: Oral mucosa is moist. Normal pharyngeal exam. Neck: Supple. No lymphadenopathy. Pulmonary: No respiratory distress. Clear to auscultation bilaterally. Cardiac: Regular rate and rhythm. Pulses are palpable and equal bilaterally. No lower extremity cyanosis or edema. Skin: Warm and dry. No rashes. Abdomen: Soft, non-tender, non-protuberant. No guarding, rigidity, or rebound. Bowel sounds are normal. No organomegaly or masses noted. Back: Normal alignment. No CVA tenderness. Extremities: Symmetrical. Full range of motion intact. Tenderness to palpation along the posterior left thigh. No calf tenderness. No pitting edema. Strong distal pulses. Brisk capillary refill. Sensation intact throughout. Neurological: Alert and oriented, appropriately interactive, no focal deficits. Psych: Cooperative. Appropriate mood and affect. Speech is evenly metered. Thoughts are logically construed. ED Course Vital Signs 09/04/20 18:41 Temperature 98.1 F Pulse Rate 100 H Respiratory 17 Rate Blood Pressure 126/78 [Right] O2 Sat by Pulse 98 Oximetry ED Medical Decision Making - Medical Decision Making Differential diagnosis including but not limited to: arterial occlusion, deep vein thrombosis, strain, sprain On reevaluation, patient remains stable. Repeat neurovascular exam remains intact. No sonographic evidence of deep vein thrombosis. Patient is afebrile, hemodynamically stable, no chest pain, no shortness of breath, no palpitations, no syncope. Pain is appropriately proportional to exam findings; no clinical evidence to suggest ischemia, trauma, or infection warranting further diagnostic work-up on an emergent basis at this time. History and exam findings suggestive of strain/sprain. Patient will be discharged home to follow-up with her OB next week as scheduled. Patient expressed understanding and is agreeable to plan of care. Strict return precautions provided. Repeat exam is unremarkable and benign. History, exam, diagnostic testing, and current condition do not suggest worrisome pathology to warrant further testing, continued ED treatment, admission, or surgical evaluation at this point. Given the low probability of a significant medical illness, it would be more likely to result in harm than benefit to perform further testing at this stage. Discussed findings, presumptive diagnosis, need for follow-up and specific signs/symptoms that should prompt immediate return to the emergency department. Instructions were explained in detail to the patient in addition to giving written discharge information. Patient expressed understanding and was given the opportunity to ask questions, all of which were satisfactorily answered prior to discharge home. Critical care attestation.: If time is entered above; I have spent that time in minutes in the direct care of this critically ill patient, excluding procedure time. ED Disposition Clinical Impression: Left thigh pain Disposition: TO HOME OR SELFCARE Is pt being admited?: No Does the pt Need Aspirin: No Condition: Stable Instructions: Musculoskeletal Pain Additional Instructions: Take Tylenol 1000 mg every 4 hours as needed for pain. Apply warm compresses to the affected area as needed for pain. Gradually advance physical activity slowly as tolerated. Follow-up with your project program manager next week as scheduled. Return to the emergency department immediately for new or worsening symptoms. Specifically, return to the emergency department immediately for chest pain, shortness of breath, fever, palpitations, loss of consciousness, numbness, weakness, worsening pain, or any other concerns. Referrals: [facility] [Provider Group] - 3-5 Days Time of Disposition: 20:52
--- NOTE | 2020-09-04 20:39 | Vascular Lab Report ---
DUPLEX DOPPLER LOWER EXTREMITY VEINS, LEFT INDICATION: left thigh pain; no trauma; 24 wks . TECHNIQUE: Duplex doppler imaging was performed through the veins of the left lower extremity using venous compr ession and other maneuvers. COMPARISON: None available. FINDINGS: Common Femoral vein: Negative. Superficial Femoral vein: Negative. Popliteal vein: Negative. Calf veins: Negative. Additional findings: None. IMPRESSION: 1. No sonographic evidence for DVT in the left lower extremity. Signer Name: Vince Hermosillo MD Signed: 09/04/2020 8:35 PM Workstation Name: [id number]
== END 2020-09-04 21:00 | disposition home or self-care (01) ==
LOC: ED 13:33
DX: M79.605 Pain in left leg (principal); K21.9 Gastro-esophageal reflux disease without esophagitis; Z98.890 Other specified postprocedural states; Z79.899 Other long term (current) drug therapy
CPT/HCPCS: 59025; 81001

== ENCOUNTER 2020-10-10 10:24 | Emergency (ER) | payer MEDICAID ==
--- NOTE | 2020-10-10 10:47 | Event Note ---
ED Screening Note Date of service: 10/10/20 Time: 10:46 ED Screening Note: Patient complains of cough congestion x1 week 28 weeks Denies abdominal pain or vaginal bleeding No shortness of breath or productive cough per patient Denies loss of taste or smell States she came to the ED today for COVID-19 test Heart rate noted to be 126 This initial assessment/diagnostic orders/clinical plan/treatment(s) is/are subject to change based on patients health status, clinical progression and re- assessment by fellow clinical providers in the ED. Further treatment and workup at subsequent clinical providers discretion. Patient/guardian urged not to elope from the ED as their condition may be serious if not clinically assessed and managed. Initial orders include: Fluids Further eval
[2020-10-10] MEDS ORDERED: LACTATED RINGERS 1,000 ML IV ONE (11:13)
--- NOTE | 2020-10-10 11:14 | Emergency Department Report ---
ED General Adult HPI - General Chief complaint: Upper Respiratory Infection Stated complaint: COLD WITH COUGH Time Seen by Provider: 10/10/20 10:46 Source: patient Mode of arrival: Ambulatory Limitations: No Limitations - History of Present Illness Initial comments: Patient complains of cough congestion x1 week 28 weeks Denies abdominal pain or vaginal bleeding No shortness of breath, chest pain, hemoptysis, or productive cough per patient Denies loss of taste or smell States she came to the ED today for COVID-19 test Heart rate noted to be 126-she admits to one episode of vomiting; she denies any hematemesis/coffee-ground emesis, diarrhea, fever/chills/sweats, or urinary symptoms. Patient states she follows with [facility] - Related Data Home Medications Medication Instructions Recorded Confirmed Last Taken Vit-Fe Fumar-FA [ 1 tab PO QDAY 04/27/18 01/09/20 01/09/20 06:00 Vitamin] Previous Rx's Medication Instructions Recorded Last Taken Type Ferrous Sulfate [Feosol 325 MG tab] 325 mg PO BID #60 tablet 01/13/20 Unknown Rx Ibuprofen [Motrin] 800 mg PO Q8HR PRN #40 tablet 01/13/20 Unknown Rx Vit-Fe Fumar-FA [ 1 tab PO QDAY #90 tablet 04/26/20 Unknown Rx Vitamin] Allergies Allergy/AdvReac Type Severity Reaction Status Date / Time No Known Allergies Allergy Verified 10/10/20 10:36 ED Review of Systems ROS: Stated complaint: COLD WITH COUGH Other details as noted in HPI Constitutional: denies: chills, diaphoresis, fever, malaise, weakness ENT: congestion. denies: throat pain Respiratory: cough. denies: shortness of breath Cardiovascular: denies: chest pain Endocrine: denies: excessive sweating Gastrointestinal: denies: abdominal pain Genitourinary: denies: urgency, dysuria, frequency, hematuria Skin: denies: rash, change in color Neurological: denies: headache Hematological/Lymphatic: denies: swollen glands ED Past Medical Hx - Past Medical History Hx Hypertension: No Hx Congestive Heart Failure: No Hx Diabetes: No Hx Deep Vein Thrombosis: No Hx GERD: Yes Hx Renal Disease: No Hx Sickle Cell Disease: No Hx Seizures: No Hx Asthma: No Hx COPD: No Hx HIV: No - Surgical History Additional Surgical History: right wrist surgery - Social History Smoking Status: Never Smoker Substance Use Type: None - Medications Home Medications: Home Medications Medication Instructions Recorded Confirmed Last Taken Type Vit-Fe Fumar-FA [ 1 tab PO QDAY 04/27/18 01/09/20 01/09/20 06:00 History Vitamin] Ferrous Sulfate [Feosol 325 MG tab] 325 mg PO BID #60 tablet 01/13/20 Unknown Rx Ibuprofen [Motrin] 800 mg PO Q8HR PRN #40 tablet 01/13/20 Unknown Rx Vit-Fe Fumar-FA [ 1 tab PO QDAY #90 tablet 04/26/20 Unknown Rx Vitamin] ED Physical Exam - General Limitations: No Limitations General appearance: alert, in no apparent distress - Head Head exam: Present: atraumatic, normocephalic - Eye Eye exam: Present: normal appearance. Absent: scleral icterus - ENT ENT exam: Present: normal exam - Neck Neck exam: Present: normal inspection - Respiratory Respiratory exam: Present: normal lung sounds bilaterally. Absent: respiratory distress, wheezes, rales, rhonchi, stridor, chest wall tenderness - Cardiovascular Cardiovascular Exam: Present: normal rhythm, tachycardia (Mild) - GI/Abdominal GI/Abdominal exam: Present: soft, distended ( abdomen), other. Absent: tenderness, guarding, rebound, rigid - Neurological Exam Neurological exam: Present: alert, oriented X3, normal gait - Psychiatric Psychiatric exam: Present: normal affect, normal mood - Skin Skin exam: Present: warm, dry, intact, normal color. Absent: rash, cyanosis, diaphoretic, pallor ED Course Vital Signs 10/10/20 10:38 Temperature 98.5 F Pulse Rate 126 H Respiratory 20 Rate Blood Pressure 119/77 O2 Sat by Pulse 99 Oximetry ED Medical Decision Making - Medical Decision Making Lungs are clear on examination. Heart rate upon initial arrival to ED noted to be 126 and 111 on repeat. Patient admitted to one episode of nonbloody emesis yesterday. No diarrhea, fever/chills/sweats per patient. White count is normal CBC. CMP shows an anion gap of 16. Patient given 1 L of lactated Ringer's. Heart rate now 98 bpm. She remains well-appearing and continues to deny any chest pain or shortness of breath. Will discharge home. Recommend plenty of hydration and outpatient COVID-19 testing. COVID-19 facility testing site list provided to patient. She is stable for discharge home and follow-up with her primary care doctor. Strict return precautions were discussed in detail with patient who verbalizes understanding. Critical care attestation.: If time is entered above; I have spent that time in minutes in the direct care of this critically ill patient, excluding procedure time. ED Disposition Clinical Impression: Cough Disposition: DC-01 TO HOME OR SELFCARE Is pt being admited?: No Condition: Stable Instructions: Cough, Adult, Prevent the Spread of COVID-19 if You Are Sick - [facility] Referrals: PRIMARY CARE, [Referring] - 3-5 Days Time of Disposition: 12:32
[2020-10-10 12:07] LABS: Basophils % (Auto) 0.2 % (0.0-1.8); Eosinophils # (Auto) 0.1 K/mm3 (0.0-0.4); Hematocrit 29.8 % (30.3-42.9); Hemoglobin 10.4 gm/dl (10.1-14.3); Lymphocytes # (Auto) 1.5 K/mm3 (1.2-5.4); Lymphocytes % (Auto) 20.8 % (13.4-35.0); Mean Corpuscular HGB Conc 35 % (30-34); Mean Corpuscular Volume 89 fl (79-97); Monocytes # (Auto) 0.4 K/mm3 (0.0-0.8); Monocytes % (Auto) 5.3 % (0.0-7.3); Platelet Count 297 K/mm3 (140-440); Red Blood Count 3.37 M/mm3 (3.65-5.03); Red Cell Distribution Width 13.7 % (13.2-15.2)
[2020-10-10 12:24] LABS: Blood Urea Nitrogen 6 mg/dL (7-17); Hemolysis Index 0
[2020-10-10 12:27] LABS: BUN/Creatinine Ratio 15
[2020-10-10 12:37] LABS: Bacteria,Urine 1+ /HPF (Negative); Bilirubin,Urine NEG (Negative); Blood,Urine NEG (Negative); Color,Urine Amber (Yellow); Mucus,Urine FEW /HPF
[2020-10-10 12:49] VITALS: BP 114/74
== END 2020-10-10 12:50 | disposition home or self-care (01) ==
LOC: ED 10:24
DX: O26.892 Other specified pregnancy related conditions, second trimester (principal); R05 Cough; K21.9 Gastro-esophageal reflux disease without esophagitis; Z3A.28 28 weeks gestation of pregnancy; Z98.890 Other specified postprocedural states; Z79.899 Other long term (current) drug therapy
CPT/HCPCS: 36415; 80048; 81001; 85025; 96360; 99283; J7120

== ENCOUNTER 2020-12-16 15:24 | Inpatient (IN) | payer MEDICAID ==
[2020-12-16] MEDS ORDERED: LACTATED RINGERS 1,000 ML ONE (16:53)
[2020-12-16 17:03] LABS: Hematocrit 29.1 % (30.3-42.9); Hemoglobin 9.6 gm/dl (10.1-14.3); Mean Corpuscular HGB Conc 33 % (30-34); Mean Corpuscular Volume 86 fl (79-97); Platelet Count 303 K/mm3 (140-440); Red Blood Count 3.41 M/mm3 (3.65-5.03); Red Cell Distribution Width 14.3 % (13.2-15.2)
[2020-12-16] MEDS ORDERED: AMPICILLIN/NS 2 GM/100 ML 2 GM/100 ML BAG IV ONE ×2 (17:13→18:00)
[2020-12-16] MEDS ORDERED: OXYTOCIN DRIP 30,000 MILLIUNITS/500 ML BAG IV ONE (17:26)
[2020-12-16] MEDS ORDERED: miSOPROStol 200 MCG TAB ONE (17:30)
[2020-12-16] MEDS ORDERED: METHYLERGONOVINE MALEATE 0.2 MG/ML VIAL IM ONE (17:31)
[2020-12-16] MEDS ORDERED: LOPERAMIDE 2 MG CAP PO PRN (17:32)
[2020-12-16] MEDS ORDERED: CARBOPROST TROMETHAMINE 250 MCG/1 ML INJ IM PRN (17:32)
[2020-12-16] MEDS ORDERED: OXYTOCIN 10 UNIT/1 ML INJ IM PRN (17:32)
[2020-12-16] MEDS ORDERED: TERBUTALINE 1 MG/1 ML INJ SUB-Q PRN (17:32)
[2020-12-16] MEDS ORDERED: ACETAMINOPHEN 325 MG TAB PO PRN ×2 (17:32→17:46)
[2020-12-16] MEDS ORDERED: BUTORPHANOL 2 MG/1 ML INJ IV PRN (17:32)
[2020-12-16] MEDS ORDERED: fentaNYL 100 MCG/2 ML INJ IV PRN (17:32)
[2020-12-16] MEDS ORDERED: METHYLERGONOVINE MALEATE 0.2 MG/ML VIAL IM PRN (17:32)
[2020-12-16] MEDS ORDERED: ePHEDrine SULFATE 50 MG/1 ML INJ IV PRN (17:32)
[2020-12-16] MEDS ORDERED: LIDOCAINE (2%) 20 MG/1 ML VIAL 20 ML MDV INFILTRATI ONE (17:32)
[2020-12-16] MEDS ORDERED: MINERAL OIL 30 ML ORAL LIQD PO PRN (17:32)
[2020-12-16] MEDS ORDERED: miSOPROStol 200 MCG TAB PR PRN (17:32)
--- NOTE | 2020-12-16 17:44 | History and Physical Report ---
History of Present Illness Date of examination: 12/16/20 Date of admission: December 16, 2020 Chief complaint: Uterine contractions History of present illness: 20-year-old -2-0-2 at 38+6 weeks who presents to labor and delivery triage in active labor with advanced cervical dilatation of 6 cm. The patient denies leakage of fluid. She initiated her course in the first trimester. Her course is complicated by history of cardiomegaly, delivery, previous delivery with a subsequent vaginal after . The patient has elected for a trial of labor. GBS is negative Past History Past Medical History: other (Cardiomegaly) Past Surgical History: section Social history: single - Obstetrical History Expected Date of Delivery: 12/24/20 Actual Gestation: 38 Week(s) 6 Day(s) : 4 Para: 3 Hx # Term Pregnancies: 1 Number of Pregnancies: 2 Spontaneous Abortions: 0 Induced : 0 Number of Living Children: 2 Medications and Allergies Allergies Allergy/AdvReac Type Severity Reaction Status Date / Time No Known Allergies Allergy Verified 10/10/20 10:36 Home Medications Medication Instructions Recorded Confirmed Last Taken Type Vit-Fe Fumar-FA [ 1 tab PO QDAY 04/27/18 01/09/20 01/09/20 06:00 History Vitamin] Ferrous Sulfate [Feosol 325 MG tab] 325 mg PO BID #60 tablet 01/13/20 Unknown Rx Ibuprofen [Motrin] 800 mg PO Q8HR PRN #40 tablet 01/13/20 Unknown Rx Vit-Fe Fumar-FA [ 1 tab PO QDAY #90 tablet 04/26/20 Unknown Rx Vitamin] Active Meds: Active Medications Acetaminophen (Acetaminophen 325 Mg Tab) 650 mg PO Q4H PRN PRN Reason: Pain, Mild (1-3) Butorphanol Tartrate (Butorphanol 2 Mg/1 Ml Inj) 1 mg IV Q2H PRN PRN Reason: Pain, Moderate(4-6) LABOR PAIN Carboprost Tromethamine (Carboprost Tromethamine 250 Mcg/1 Ml Inj) 250 mcg IM ONCE PRN PRN Reason: Uterine Bleeding Ephedrine Sulfate (Ephedrine Sulfate 50 Mg/1 Ml Inj) 10 mg IV Q2M PRN PRN Reason: Hypotension Fentanyl (Fentanyl 100 Mcg/2 Ml Inj) 100 mcg IV Q2H PRN PRN Reason: Pain,Severe (7-10) LABOR PAIN Oxytocin/Sodium Chloride (Pitocin/Ns 30 Unit/500ml) 30 units in 500 mls @ 2 mls/hr IV TITR MANGO; Protocol Lactated Ringer's (Lactated Ringers) 1,000 mls @ 125 mls/hr IV DIRECT MANGO Oxytocin/Sodium Chloride (Pitocin/Ns 30 Unit/500ml) 30 units in 500 mls @ 40 mls/hr IV TITR MANGO; Protocol Ampicillin Sodium (Ampicillin/Ns 2 Gm/100 Ml) 2 gm in 100 mls @ 100 mls/hr IV ONCE ONE; Protocol Stop: 12/16/20 18:59 Lidocaine (Lidocaine (2%) 20 Mg/1 Ml Vial 20 Ml Mdv) 20 ml INFILTRATI ONCE ONE Stop: 12/16/20 17:33 Loperamide HCl (Loperamide 2 Mg Cap) 2 mg PO ONCE PRN PRN Reason: give with Hemabate Methylergonovine Maleate (Methylergonovine Maleate 0.2 Mg/Ml Vial) 0.2 mg IM ONCE PRN PRN Reason: Uterine Bleeding Mineral Oil (Mineral Oil 30 Ml Oral Liqd) 30 ml PO QHS PRN PRN Reason: Constipation Misoprostol (Misoprostol 200 Mcg Tab) 800 mcg NE ONCE PRN PRN Reason: Uterine Bleeding Oxytocin (Oxytocin 10 Unit/1 Ml Inj) 10 unit IM ONCE PRN PRN Reason: Uterine Bleeding Terbutaline Sulfate (Terbutaline 1 Mg/1 Ml Inj) 0.25 mg SUB-Q ONCE PRN PRN Reason: Hyperstimulation/Hypertonicity Review of Systems All systems: negative Genitourinary: pelvic pain, contractions - Vital Signs Vital signs: Vital Signs Pulse BP 101 H 121/81 12/16/20 16:30 12/16/20 16:30 Temp Pulse Resp BP Pulse Ox 98.4 F 101 H 16 121/81 12/16/20 16:38 12/16/20 16:38 12/16/20 16:38 12/16/20 16:38 - Physical Exam Breasts: Positive: deferred Cardiovascular: Regular rate Lungs: Positive: Clear to auscultation - Obstetrical Cervical Dilatation: 6 Results Result Diagrams: 12/16/20 16:40 Abnormal lab results 12/16/20 Range/Units 16:40 WBC 11.6 H (4.5-11.0) K/mm3 RBC 3.41 L (3.65-5.03) M/mm3 Hgb 9.6 L (10.1-14.3) gm/dl Hct 29.1 L (30.3-42.9) % All other labs normal. Assessment and Plan - Patient Problems (1) Previous delivery affecting Current Visit: Yes Status: Acute Plan to address problem: Admit for trial of labor (2) Active labor at term Current Visit: No Status: Acute
[2020-12-16] MEDS ORDERED: ONDANSETRON 4 MG/2 ML INJ IV PRN (17:45)
[2020-12-16] MEDS ORDERED: WITCH HAZEL/ GLYCERIN PAD TP PRN (17:45)
[2020-12-16] MEDS ORDERED: LACTATED RINGERS 1,000 ML IV SCH (17:45)
[2020-12-16] MEDS ORDERED: LANOLIN/ZINC/DIMETHICONE (LANSINOH) 7 GM TP PRN (17:45)
[2020-12-16] MEDS ORDERED: PROMETHAZINE 25 MG RECT SUPP PR PRN (17:45)
[2020-12-16] MEDS ORDERED: diphenhydrAMINE 25 MG CAP PO PRN (17:45)
[2020-12-16] MEDS ORDERED: MAGNESIUM HYDROXIDE (MOM) ORAL LIQD UDC PO PRN (17:45)
[2020-12-16] MEDS ORDERED: PROMETHAZINE 25 MG TAB PO PRN (17:45)
[2020-12-16] MEDS ORDERED: HYDROcodone/ACETAMINOPHEN 5-325 MG TAB PO PRN (17:46)
[2020-12-16] MEDS ORDERED: OXYTOCIN DRIP 30 UNITS/500 ML BAG IV SCH ×2 (18:00)
[2020-12-16] MEDS ORDERED: IBUPROFEN 600 MG TAB PO SCH (18:00)
--- NOTE | 2020-12-16 18:09 | Procedure Note ---
OB Delivery Note - Delivery Date of Delivery: 12/16/20 Surgeon: AARON CUMMINGS - Vaginal Delivery presentation: vertex Delivery position: OA Delivery monitor: external FHT, external uterine Route of delivery: Delivery placenta: spontaneous Episiotomy: none Delivery laceration: none Anesthesia: none - A at 1 minute: 9 at 5 minutes: 9 Gender: Female (Weight 6 pounds 8 ounces)
[2020-12-16 21:03] LABS: Hematocrit 26.8 % (30.3-42.9); Mean Corpuscular HGB Conc 34 % (30-34); Mean Corpuscular Volume 86 fl (79-97); Platelet Count 292 K/mm3 (140-440); Red Blood Count 3.11 M/mm3 (3.65-5.03); Red Cell Distribution Width 13.6 % (13.2-15.2)
[2020-12-17 05:40] LABS: Hematocrit 27.5 % (30.3-42.9); Hemoglobin 8.9 gm/dl (10.1-14.3)
--- NOTE | 2020-12-17 09:44 | Progress Note ---
Assessment and Plan A: PPD#1 s/p at term Acute on chronic anemia P: Routine care Anticipate discharge tomorrow Subjective - Subjective Date of service: 12/18/20 Principal diagnosis: s/p at term Interval history: Pt feels well Patient reports: appetite normal, voiding normally, pain well controlled, ambulating normally [place]: doing well Objective - Vital Signs Latest vital signs: Vital Signs Temp Pulse Resp BP BP Pulse Ox Pulse Ox 12/17/20 08:51 98.1 F 84 18 111/77 99 12/17/20 05:38 98.0 F 83 20 115/78 97 12/17/20 00:23 98.1 F 86 20 122/78 98 12/16/20 21:40 99.0 F 98 H 19 115/63 12/16/20 21:13 99 12/16/20 19:27 98.6 F 99 12/16/20 19:14 124 H 99 12/16/20 19:10 99 12/16/20 19:09 103 H 124/70 99 12/16/20 19:08 122/70 12/16/20 19:04 102 H 100 12/16/20 18:59 104 H 100 12/16/20 18:54 104 H 115/71 100 12/16/20 18:49 105 H 99 12/16/20 18:44 106 H 99 12/16/20 18:39 105 H 119/74 99 12/16/20 18:34 104 H 99 12/16/20 18:29 107 H 97 12/16/20 18:24 97 H 111/66 99 12/16/20 18:19 97 H 99 12/16/20 18:14 99 H 98 12/16/20 18:09 101 H 119/76 99 12/16/20 18:04 97 H 98 12/16/20 17:59 105 H 98 12/16/20 17:54 107 H 99 12/16/20 17:49 68 98 12/16/20 17:44 53 L 100 12/16/20 17:00 99 12/16/20 16:38 98.4 F 101 H 16 121/81 12/16/20 16:30 101 H 121/81 Intake and Output 12/16/20 12/17/20 12/17/20 22:59 06:59 14:59 Intake Total 360 720 120 Output Total 500 Balance 360 220 120 Intake: Oral 360 360 120 Intake, Free Water 360 Output: Urine 500 Void 500 Other: Total, Intake Amount 360 360 120 Total, Output Amount 300 # Voids Void 1 2 Weight 81.647 kg Estimated Blood Loss 350 - Exam Breasts: Present: deferred Abdomen: Present: soft (obese ) Uterus: Present: fundal height at umbilicus Extremities: Present: normal - Labs Labs: Abnormal lab results 12/16/20 12/16/20 12/17/20 Range/Units 16:40 20:11 05:23 WBC 11.6 H 16.4 H (4.5-11.0) K/mm3 RBC 3.41 L 3.11 L (3.65-5.03) M/mm3 Hgb 9.6 L 9.0 L 8.9 L (10.1-14.3) gm/dl Hct 29.1 L 26.8 L 27.5 L (30.3-42.9) %
--- NOTE | 2020-12-17 09:44 | Discharge Summary ---
Providers - Providers Date of Admission: 12/16/20 15:34 Date of discharge: 12/18/20 Attending physician: AARON CUMMINGS Primary care physician: AARON CUMMINGS Hospitalization Reason for admission: active labor Delivery: Procedure details: Please see delivery note Episiotomy: none Laceration: none Other procedures: none complications: none Discharge diagnosis: IUP at term delivered [place] baby: female Hospital course: Patient was admitted in active labor and went on to have a vaginal after section which she tolerated well. Her course was uncomplicated. She met discharge criteria on day #2. She will follow-up in the office in 4 weeks. Condition at discharge: Stable Disposition: 01 HOME / SELF CARE / HOMELESS - Discharge Diagnoses (1) Vaginal after () Status: Acute (2) Previous delivery affecting Status: Acute (3) Active labor at term Status: Acute (4) Anemia Status: Acute Qualifiers: Anemia type: unspecified type Qualified Code(s): D64.9 - Anemia, unspecifi ed Plan - Discharge Medications Prescriptions: Ferrous Sulfate [Feosol 325 MG tab] 325 mg PO BID #60 tablet Ibuprofen [Motrin] 800 mg PO Q8HR PRN #30 tablet PRN Reason: Pain, Moderate (4-6) - Provider Discharge Summary Activity: routine, no sex for 6 weeks, no heavy lifting 4 weeks, no strenuous exercise Diet: routine Instructions: routine Additional instructions: [] Smoking cessation referral if applicable(refer to patient education folder for contact #) [] Refer to [facility] Booklet Call your doctor immediately for: * Fever > 100.5 * Heavy vaginal bleeding ( >1 pad per hour) * Severe persistent headache * Shortness of breath * Reddened, hot, painful area to leg or breast * Drainage or odor from incision. * Keep incision clean and dry at all times and follow doctor's instructions regarding bathing/showering - Follow up plan Follow up: RODY THOMAS NP [Advanced Practice Nurse] - 01/13/21 Forms: [facility] Discharge Summary
[2020-12-17] MEDS ORDERED: IBUPROFEN ORAL LIQD 100 MG/5 ML ORAL.LIQD PO SCH (20:00)
[2020-12-18 18:24] VITALS: BP 126/78
== END 2020-12-18 18:33 | disposition home or self-care (01) | DRG 775 ==
LOC: TRG 15:24 → APU 15:27 → LD 15:34 → TRG 17:32 → OB 19:33
PROVIDERS: ADMIT Obstetrics & Gynecology; ATTEND Obstetrics & Gynecology
PROC: 10E0XZZ Delivery of Products of Conception, External Approach (ICD-10-PCS; principal; 2020-12-16)
DX: O34.211 Maternal care for low transverse scar from previous cesarean delivery (principal); Z37.0 Single live birth; Z3A.38 38 weeks gestation of pregnancy; Z20.822 Contact with and (suspected) exposure to COVID-19; O90.81 Anemia of the puerperium; D64.9 Anemia, unspecified
CPT/HCPCS: 36415; 59025; 85014; 85018; 85027; 86592; 86850; 86900; 86901; 99211; G0378; G0463; U0003

== ENCOUNTER 2021-02-19 15:40 | Emergency (ER) | payer MEDICAID ==
[2021-02-19 15:50] VITALS: BP 130/70
[2021-02-19] MEDS ORDERED: ACETAMINOPHEN 500 MG TAB PO STA (17:04)
[2021-02-19] MEDS ORDERED: IBUPROFEN 800 MG TAB PO STA (17:04)
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
== END 2021-02-19 17:26 | disposition home or self-care (01) ==
LOC: ED 15:40
DX: M54.2 Cervicalgia (principal); M54.9 Dorsalgia, unspecified; K21.9 Gastro-esophageal reflux disease without esophagitis; Z79.899 Other long term (current) drug therapy; V87.7XXA Person injured in collision between other specified motor vehicles (traffic), initial encounter; Y93.89 Activity, other specified; Y92.488 Other paved roadways as the place of occurrence of the external cause; Y99.8 Other external cause status
CPT/HCPCS: 99282

== ENCOUNTER 2021-02-20 08:32 | Day surgery (SDC) | payer MEDICAID ==
[2021-02-19 10:48] LABS: Hemoglobin 9.8 gm/dl (10.1-14.3); Mean Corpuscular HGB Conc 31 % (30-34); Mean Corpuscular Volume 78 fl (79-97); Platelet Count 362 K/mm3 (140-440); Red Cell Distribution Width 17.1 % (13.2-15.2)
[2021-02-20] MEDS ORDERED: LACTATED RINGERS 1,000 ML ONE (09:00)
[2021-02-20] MEDS ORDERED: HYDROmorphone 1 MG/1 ML INJ IV PRN ×2 (09:26)
[2021-02-20] MEDS ORDERED: ONDANSETRON 4 MG/2 ML INJ IV PRN (09:26)
--- NOTE | 2021-02-20 09:27 | Anesthesia Day of Surgery ---
Anesthesia Day of Surgery - Day of Surgery Patient Examined: Yes Patient H&P Reviewed: Yes Patient is NPO: Yes
--- NOTE | 2021-02-20 09:28 | Anesthesia Consultation ---
Anesthesia Consult and Med Hx Date of service: 02/20/21 - Airway Anesthetic Teeth Evaluation: Good ROM Head & Neck: Adequate Mental/Hyoid Distance: Adequate Mallampati Class: Class II Intubation Access Assessment: Good - Pre-Operative Health Status ASA Pre-Surgery Classification: ASA1 Proposed Anesthetic Plan: General - Pulmonary Hx Smoking: No Hx Asthma: No COPD: No Hx Pneumonia: No Hx Sleep Apnea: No (ANJALI PRE SCREEN NEGATIVE) - Cardiovascular System Hx Hypertension: No - Central Nervous System Hx Seizures: No Hx Psychiatric Problems: No - Endocrine Hx Renal Disease: No Hx End Stage Renal Disease: No Hx Hypothyroidism: No Hx Hyperthyroidism: No - Hematic Hx Anemia: No Hx Sickle Cell Disease: No - Other Systems Hx Alcohol Use: No Hx Cancer: No Hx Obesity: Yes (BMI > 30)
[2021-02-20] MEDS ORDERED: KETOROLAC 30 MG/1 ML INJ IV NR (09:30)
[2021-02-20] MEDS ORDERED: BUPIVACAINE/PF (0.5%) 5 MG/1 ML 30 ML VIAL INFILTRATI ONE ×2 (09:34→10:52)
--- NOTE | 2021-02-20 09:47 | Short Stay Summary ---
Short Stay Documentation Date of service: 02/20/21 Narrative H&P: 20-year-old -2-0-3 with undesired fertility. The patient is aware of other contraceptive options as and has elected for permanent sterilization. - History Principal diagnosis: Unwanted fertility Past Medical History: No medical history Past Surgical History: Social history: single - Allergies and Medications Current Medications: Allergies No Known Allergies Allergy (Verified 02/19/21 15:45) Home Medications Medication Instructions Recorded Confirmed Last Taken Type Naproxen 500 mg PO BID PRN #20 tablet 02/19/21 Unknown Rx methocarbamoL [Methocarbamol] 750 mg PO TID PRN #20 tablet 02/19/21 Unknown Rx Active Medications Acetaminophen (Acetaminophen 325 Mg/10.15 Ml Oral Liqd Unit Dose) 975 mg PO PREOP NR Stop: 02/20/21 20:00 Gabapentin (Gabapentin 500 Mg/10 Ml Oral Liqd) 500 mg PO PREOP NR Stop: 02/20/21 23:00 Hydromorphone HCl (Hydromorphone 1 Mg/1 Ml Inj) 0.25 mg IV Q10MIN PRN PRN Reason: Pain, Moderate (4-6) Stop: 02/20/21 23:00 Hydromorphone HCl (Hydromorphone 1 Mg/1 Ml Inj) 0.5 mg IV Q10MIN PRN PRN Reason: Pain , Severe (7-10) Stop: 02/20/21 23:00 Lactated Ringer's (Lactated Ringers) 1,000 mls @ 125 mls/hr IV DIRECT MANGO Ketorolac Tromethamine (Ketorolac 30 Mg/1 Ml Inj) 30 mg IV ONCE NR Stop: 02/20/21 11:00 Midazolam HCl (Midazolam 2 Mg/2 Ml Inj) 2 mg IV PREOP NR Stop: 02/20/21 23:59 Ondansetron HCl (Ondansetron 4 Mg/2 Ml Inj) 4 mg IV ONCE PRN PRN Reason: Nausea And Vomiting Stop: 02/20/21 13:00 - Physical exam General appearance: no acute distress Integumentary: no rash HEENT: Atraumatic Lungs: Clear to auscultation Breasts: deferred Heart: Regular rate Gastrointestinal: normal Female Genitourinary: deferred Rectal Exam: deferred - Brief post op/procedure progress note Date of procedure: 02/20/21 Pre-op diagnosis: Unwanted fertility Post-op diagnosis: same Procedure: Laparoscopic bilateral tubal ligation with Filshie clips Anesthesia: PETEA Surgeon: AARON CUMMINGS Estimated blood loss: none Pathology: none Condition: stable - Hospital course Hospital course: The patient was admitted the day of surgery underwent a laparoscopic bilateral tubal ligation. Please see operative note for details of surgery. Her postoperative course is uneventful. - Disposition Condition at discharge: Good Disposition: 01 HOME / SELF CARE / HOMELESS Short Stay Discharge Plan Activity: other (Pelvic rest for 1 week) Diet: regular Additional Instructions: Follow-up is not required Follow-up as needed Prescriptions: Ibuprofen [Motrin] 800 mg PO Q8HR PRN #30 tablet PRN Reason: Pain , Severe (7-10) HYDROcodone/APAP 5-325 [[place] 5/325] 1 each PO Q6HR PRN #15 tablet PRN Reason: Pain
[2021-02-20] MEDS ORDERED: ceFAZolin/STERILE WATER 2 GM/20 ML SYRINGE IV NR (09:57)
[2021-02-20] MEDS ORDERED: ACETAMINOPHEN 325 MG/10.15 ML ORAL LIQD UNIT DOSE PO NR (10:00)
[2021-02-20] MEDS ORDERED: MIDAZOLAM 2 MG/2 ML INJ IV NR (10:00)
[2021-02-20] MEDS ORDERED: LACTATED RINGERS 1,000 ML IV SCH (10:00)
[2021-02-20] MEDS ORDERED: GABAPENTIN 500 MG/10 ML ORAL LIQD PO NR (10:00)
[2021-02-20] MEDS ORDERED: dexAMETHasone 20 MG/5 ML VIAL ONE (10:05)
[2021-02-20] MEDS ORDERED: propofoL 200 MG/20 ML VIAL IV ONE (10:05)
[2021-02-20] MEDS ORDERED: LIDOCAINE MPF (2%) 20 MG/1 ML VIAL 5 ML ONE (10:05)
[2021-02-20] MEDS ORDERED: ONDANSETRON 4 MG/2 ML INJ ONE (10:05)
[2021-02-20] MEDS ORDERED: ROCURONIUM 50 MG/5 ML INJ IV ONE (10:05)
[2021-02-20] MEDS ORDERED: KETAMINE/STERILE WATER 50 MG/ML SYRINGE ONE (10:05)
[2021-02-20] MEDS ORDERED: ceFAZolin/Water 2 GM/20 ML 2 GM/20 ML SYRINGE IV ONE (10:07)
[2021-02-20] MEDS ORDERED: fentaNYL 100 MCG/2 ML INJ ONE (10:19)
[2021-02-20] MEDS ORDERED: SODIUM CHLORIDE 0.9% IRR 1,500 ML BOTTLE IR ONE (10:52)
[2021-02-20] MEDS ORDERED: NEOSTIGMINE 10MG/10 ML INJ MDV ONE (11:00)
[2021-02-20] MEDS ORDERED: GLYCOPYRROLATE 0.4 MG/2 ML INJ ONE (11:00)
--- NOTE | 2021-02-20 11:10 | Operative Report ---
Operative Report Operative Report: Date of surgery: February 20, 2021 Preoperative diagnosis: Unwanted fertility Postoperative diagnosis: Same as above Procedure: Laparoscopic bilateral tubal ligation with Filshie clips Surgeon: Bonny Perez M.D. Anesthesia: General endotracheal anesthesia Estimated blood loss: Minimal Findings: Normal uterus tubes and ovaries Indication: 20-year-old -2-0-3 with unwanted fertility. Procedure: The patient was taken to the operating room and given general endotracheal anesthesia without complication. The patient is prepped and draped in a normal sterile fashion. A bivalve speculum was placed in the patient's vagina and a single-tooth tenaculum was placed on the anterior lip of the cervix .A uterine acorn manipulator was placed, and the bivalve speculum was then removed. Attention was then turned to the patient's abdomen where a 5 mm infraumbilical skin incision was then made. A Veress needle was placed and peritoneal entry was verified water-filled syringe. Insufflation of the peritoneal cavity was performed with CO2 gas. A 5 mm trocar was placed and the laparoscope was then inserted. The patient was then placed in Trendelenburg. A 7 mm suprapubic skin incision was then made. Under direct visualization a 7 mm trocar was then placed. An additional 5 mm left lateral trocar was also placed. General survey of the patient's abdomen revealed normal uterus tubes and ovaries. The fallopian tube was then followed out to the fimbriated end. A Filshie clip was applied to the ampullary portion of the tube this was performed on the contralateral side as well. 2 Filshie clips were placed on the left fallopian tube. The trocars were then removed. The pneumoperitoneum was then released. The 5 mm trocar laparoscope was then removed. The skin incisions were then closed with 4-0 Monocryl. The incisions were injected with quarter percent Marcaine. Dressings were applied to the incision. The vaginal instruments were then removed atraumatically. Then successfully extubated and taken to the recovery room. All sponge laps and needle counts were correct x2.
[2021-02-20 14:18] VITALS: BP 143/78
--- NOTE | 2021-02-20 17:48 | Post Anesthesia Evaluation ---
- Post Anesthesia Evaluation Patient Participated: Yes Airway Patent: Yes Stable Respiratory Function: Yes Nausea/Vomiting: No Temp > 96.8F: Yes Pain Manageable: Yes Adequeate Hydration: Yes Anesthesia Complications: No Block Receding Appropriately: Not Applicable Patient on Ventilator: No
== END 2021-02-20 13:05 | disposition home or self-care (01) ==
LOC: OR 08:32
PROVIDERS: ATTEND Obstetrics & Gynecology
DX: Z30.2 Encounter for sterilization (principal); D50.9 Iron deficiency anemia, unspecified; E66.9 Obesity, unspecified; K21.9 Gastro-esophageal reflux disease without esophagitis; I51.7 Cardiomegaly; Z79.899 Other long term (current) drug therapy; Z98.890 Other specified postprocedural states; Z20.822 Contact with and (suspected) exposure to COVID-19
CPT/HCPCS: 36415; 58671; 84703; 85027; J0690; J1100; J1815; J1885; J2250; J2405; J2704; J2710; J3010; J3490; J7120; U0003

== ENCOUNTER 2021-04-16 14:38 | Emergency (ER) | payer MEDICAID ==
--- NOTE | 2021-04-16 15:10 | Emergency Department Report ---
ED General Adult HPI - General Chief complaint: Abdominal Pain Stated complaint: abdominal pain Time Seen by Provider: 04/16/21 14:46 Source: patient Mode of arrival: Ambulatory Limitations: No Limitations - History of Present Illness Initial comments: 20-year-old -[place] female patient presents with complaints of sudden onset of lower abdominal cramping pain this morning. She states the pain has since resolved. She admits to increased frequency of urination without dysuria or hematuria, vaginal discharge, dyspareunia, fever/chills/sweats, or nausea/vomiting/diarrhea. No pain at this time per patient. She denies any past medical history. -: Sudden - Related Data Previous Rx's Medication Instructions Recorded Last Taken Type Naproxen 500 mg PO BID PRN #20 tablet 02/19/21 Unknown Rx methocarbamoL [Methocarbamol] 750 mg PO TID PRN #20 tablet 02/19/21 Unknown Rx HYDROcodone/APAP 5-325 [[place] 1 each PO Q6HR PRN #15 tablet 02/20/21 Unknown Rx 5/325] Ibuprofen [Motrin] 800 mg PO Q8HR PRN #30 tablet 02/20/21 Unknown Rx Ibuprofen [Motrin 800 MG tab] 800 mg PO Q8HR PRN #20 tablet 04/16/21 Unknown Rx Sulfamethoxazole/Trimethoprim 1 each PO BID 3 Days #6 tab 04/16/21 Unknown Rx [Bactrim DS TAB] Allergies Allergy/AdvReac Type Severity Reaction Status Date / Time No Known Allergies Allergy Verified 02/19/21 15:45 ED Review of Systems ROS: Stated complaint: abdominal pain Other details as noted in HPI Constitutional: denies: chills, diaphoresis, fever, malaise, weakness Gastrointestinal: as per HPI Genitourinary: denies: abnormal menses, dyspareunia Musculoskeletal: denies: back pain Skin: denies: rash, lesions, change in color ED Past Medical Hx - Past Medical History Hx Hypertension: No Hx Congestive Heart Failure: No Hx Diabetes: No Hx Deep Vein Thrombosis: No Hx GERD: Yes Hx Renal Disease: No Hx Sickle Cell Disease: No Hx Seizures: No Hx Asthma: No Hx COPD: No Hx HIV: No - Surgical History Additional Surgical History: right wrist surgeryC SECTION/ TONSILS EAR - Social History Smoking Status: Never Smoker - Medications Home Medications: Home Medications Medication Instructions Recorded Confirmed Last Taken Type Naproxen 500 mg PO BID PRN #20 tablet 02/19/21 Unknown Rx methocarbamoL [Methocarbamol] 750 mg PO TID PRN #20 tablet 02/19/21 Unknown Rx HYDROcodone/APAP 5-325 [[place] 1 each PO Q6HR PRN #15 tablet 02/20/21 Unknown Rx 5/325] Ibuprofen [Motrin] 800 mg PO Q8HR PRN #30 tablet 02/20/21 Unknown Rx Ibuprofen [Motrin 800 MG tab] 800 mg PO Q8HR PRN #20 tablet 04/16/21 Unknown Rx Sulfamethoxazole/Trimethoprim 1 each PO BID 3 Days #6 tab 04/16/21 Unknown Rx [Bactrim DS TAB] ED Physical Exam - General Limitations: No Limitations General appearance: alert, in no apparent distress - Head Head exam: Present: atraumatic, normocephalic - Eye Eye exam: Present: normal appearance - Respiratory Respiratory exam: Present: normal lung sounds bilaterally. Absent: respiratory distress - Cardiovascular Cardiovascular Exam: Present: regular rate, normal rhythm - GI/Abdominal GI/Abdominal exam: Present: soft, normal bowel sounds. Absent: distended, tende rness, guarding, rebound, rigid - Back Exam Back exam: Absent: CVA tenderness (R), CVA tenderness (L) - Neurological Exam Neurological exam: Present: alert, oriented X3 - Psychiatric Psychiatric exam: Present: normal affect, normal mood - Skin Skin exam: Present: warm, dry, intact, normal color. Absent: rash ED Course Vital Signs 04/16/21 14:42 Temperature 98.5 F Pulse Rate 84 Respiratory 17 Rate Blood Pressure 139/87 O2 Sat by Pulse 100 Oximetry ED Medical Decision Making - Medical Decision Making 20-year-old -[place] female patient presents with complaints of sudden onset of lower abdominal cramping pain this morning. She states the pain has since resolved. She admits to increased frequency of urination without dysuria or hematuria, vaginal discharge, dyspareunia, fever/chills/sweats, or nausea/vomiting/diarrhea. No pain at this time per patient. She denies any past medical history. Pyuria noted on UA. Given patient's symptoms, will treat for UTI with Bactrim. Recommend follow-up with PCP in 3 to 5 days. She is otherwise well-appearing, her vitals are normal, she is stable for discharge home. Strict return precautions were discussed in detail with patient who verbalizes understanding Critical care attestation.: If time is entered above; I have spent that time in minutes in the direct care of this critically ill patient, excluding procedure time. ED Disposition Clinical Impression: Pyuria Disposition: HOME / SELF CARE / HOMELESS Is pt being admited?: No Condition: Stable Instructions: Urinary Tract Infection, Adult, [id number], Abdominal Pain (ED) Prescriptions: Sulfamethoxazole/Trimethoprim [Bactrim DS TAB] 1 each PO BID 3 Days #6 tab Ibuprofen [Motrin 800 MG tab] 800 mg PO Q8HR PRN #20 tablet PRN Reason: pain Referrals: [facility] [Provider Group] - 3-5 Days PRIMARY CARE, [Primary Care Provider] - 3-5 Days Forms: Work/School Release Form(ED)
[2021-04-16 15:54] LABS: Bilirubin,Urine NEG (Negative); Blood,Urine NEG (Negative); Color,Urine Yellow (Yellow); Mucus,Urine FEW /HPF
[2021-04-16 16:10] LABS: HCG Qualitative,Urine Negative (Negative)
[2021-04-16 16:27] VITALS: BP 136/71
== END 2021-04-16 16:27 | disposition home or self-care (01) ==
LOC: ED 14:38
DX: R82.81 Pyuria (principal)
CPT/HCPCS: 81001; 81025; 87086; 99283